=== PATIENT | female | born 1935 | race Caucasian/White ===

== ENCOUNTER → 2017-12-24 10:04 | Outpatient (CLI) | payer MEDICARE, OTHER, SELFPAY | PROVIDERS: Visit Provider Physician Assistant | DX: N30.01 Acute cystitis with hematuria (principal) | CPT/HCPCS: 87077; 87086; 87147; 87186 ==

== ENCOUNTER → 2017-12-30 14:41 | Outpatient (CLI) | payer MEDICARE, OTHER, SELFPAY ==
--- NOTE | 2017-12-30 14:45 | DI.RAD.S_ITS ---
PROCEDURE: XR THORACIC SPINE 3V INDICATIONS: LOWER BACK INJURY TECHNIQUE: 3 views of the thoracic spine were acquired. COMPARISON: [facility], , CHEST 1 VIEW, 11/12/2014, 9:48. [facility], , XR LUMBAR SPINE 2-3V, 12/30/2017, 14:23. FINDINGS: Bones: No acute fractures or dislocations. There is a chronic appearing anterior wedge deformity seen at T7. Accentuated thoracic kyphosis is seen. No suspicious bony lesions. 11 pairs of ribs are noted, and appear intact where visualized. Mild dextroconvex scoliotic curvature is noted. Age-appropriate osteopenia and bony degenerative changes are seen. Soft tissues: No paravertebral stripe thickening. IMPRESSION: Chronic appearing T7 anterior wedge deformity. If there is point tenderness (or other clinical suspicion for a fracture not seen on these images) then a dedicated CT could be considered for further evaluation, as clinically appropriate. Only 11 pairs of ribs can be seen. Dictated by: Gerardo Humphreys M.D. on 12/30/2017 at 14:09 Approved by: Gerardo Humphreys M.D. on 12/30/2017 at 14:11
--- NOTE | 2017-12-30 14:45 | DI.RAD.S_ITS ---
PROCEDURE: XR LUMBAR SPINE 2-3V INDICATIONS: INJURY LOWER BACK TECHNIQUE: 3 views of the lumbar spine were acquired. COMPARISON: [facility], CR, XR THORACIC SPINE 3V, 12/30/2017, 14:23. FINDINGS: Bones: This patient has transitional lumbar anatomy. For the purposes of this examination, the level with the last well-developed disc space is considered to be L5-S1. Only 11 well-developed pairs of ribs can be seen on the accompanying thoracic spine plain film series. The 1st nonrib-bearing segmented is considered to be T12. No acute lumbar spine fractures are seen. The disc spaces are well-preserved. Age-appropriate osteopenia is seen. Lower lumbar spine facet arthropathy is seen. There is partial visualization of a chronic appearing T7 anterior wedge deformity. Minimal levoconvex lumbar scoliotic curvature is seen. No focal AP alignment abnormality is seen. Soft tissues: Overlying bowel gas pattern is normal. No suspicious soft tissue calcifications. Relatively prominent atherosclerotic calcification is noted. IMPRESSION: No acute bony abnormality is seen of the lumbar spine. 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 Dictated by: Gerardo Humphreys M.D. on 12/30/2017 at 14:11 Approved by: Gerardo Humphreys M.D. on 12/30/2017 at 14:13
== END ==
PROVIDERS: Visit Provider Internal Medicine
DX: S39.92XS Unspecified injury of lower back, sequela (principal)
CPT/HCPCS: 72072; 72100

== ENCOUNTER 2018-01-01 19:29 | Inpatient (IN) | payer MEDICARE, OTHER, SELFPAY ==
[2018-01-01 19:40] VITALS: BP 160/112; PULSE 78; RESP 18; TEMP 36.6; BMI 21.6
[2018-01-01 20:31] LABS: Bacteria Urine None Seen
--- NOTE | 2018-01-01 20:32 | ED.WEAKNESS ---
HPI - Weakness General Chief complaint: Weakness Stated complaint: Blood in urine Time Seen by Provider: 01/01/18 21:36 Source: patient Mode of arrival: ambulatory Limitations: no limitations History of Present Illness HPI Narrative: The patient has sustained 3 mechanical falls at home in the last several days. With the 1st fall she did hit her head, there is no LOC, headache or new neurologic deficits. She has no nausea vomiting. She has no visual changes. She has no neck pain. By contrast, the 2nd fall was uneventful. The 3rd fall was 2 diets ago. About 1:30 a.m. she was up to the bathroom and fell. She does not remember how she fell. She required help getting up from the floor. She injured her back. She is here now with a primary complaint of back pain. She has no associated nausea, vomiting, diarrhea or incontinence. She has no bowel incontinence or bladder incontinence. Although unsteady on her feet, she denies any new numbness or weakness in the lower extremities. She has walked a little since the fall, not much due to pain. She has no chest pain. Related Data Home Medications Medication Instructions Recorded Confirmed amlodipine [Norvasc] 2.5 mg PO QDAY #0 02/25/12 levothyroxine [Synthroid] 125 mcg PO QDAY #0 02/25/12 telmisartan [Micardis] 80 mg PO QDAY #0 02/25/12 metoprolol succinate [Toprol XL] 25 mg PO QPM #0 02/14/17 metoprolol succinate [Toprol XL] 50 mg PO QAM #0 02/14/17 Allergies Allergy/AdvReac Type Severity Reaction Status Date / Time atenolol [ATENOLOL] AdvReac Intermediate dizzyness Verified 12/24/17 09:44 Review of Systems Review of Systems All systems reviewed & are unremarkable except as noted in HPI and below Constitutional Denies chills, Denies fever(s), Denies headache(s), Denies lethargy, Denies weakness and Reports other ( No recent illness.) Eyes Denies change in vision and Denies loss of vision ENT Ears, Nose, Mouth, and Throat: Denies change in voice, Denies vertigo, Denies dizziness, Denies facial pain, Denies headache(s), Denies mouth pain, Denies neck pain and Denies sore throat Cardiovascular Denies chest pain, Denies syncope, Denies irregular heart rhythm, Denies lightheadedness, Denies palpitations, Denies dyspnea, Denies dyspnea on exertion and Denies orthopnea Respiratory Denies cough, Denies dyspnea, Denies dyspnea on exertion and Denies wheezing Gastrointestinal Gastrointestinal: Denies abdominal pain, Denies change in bowel habits, Denies diarrhea, Denies nausea and Denies vomiting Genitourinary Reports hematuria ( For the last 3 weeks, onset prior to the recent falls.), Denies flank pain, Denies urinary incontinence and Denies urinary urgency Musculoskeletal Reports back pain, Reports limited range of motion and Denies neck pain Integumentary/Breasts Denies pruritus, Denies erythema, Denies rash and Denies wounds Neurologic Denies vertigo, Denies dizziness, Denies syncope, Denies headache(s), Denies loss of vision, Denies memory loss and Denies weakness Psychiatric Denies memory loss Endocrine Denies palpitations Allergic/Immunologic Denies wheezing PFSH Medical History Atrial fibrillation (Acute) Hypertension (Acute) Hypothyroidism (Acute) Social History Smoking Status: Former smoker Exam Initial Vital Signs Initial Vital Signs: Vital Signs Temperature 97.9 F 01/01/18 19:40 Pulse Rate 78 01/01/18 19:40 Respiratory Rate 18 01/01/18 19:40 Blood Pressure 160/112 H 01/01/18 19:40 Const General: cooperative and well developed Nutritional Appearance: well nourished Orientation: alert, awake, oriented x3 and not confused [facility] Head: normocephalic and atraumatic Ears: external ears normal and TM's normal bilaterally Nose: external nose normal and No nasal discharge Face and sinus: sinuses nontender, face symmetric, no sinus tenderness and No dry mucous membranes Mouth: oral mucosae normal and moist mucous membranes Teeth and gingiva: dentition normal Throat: tonsils normal and uvula midline Eyes Conjunctivae: conjunctivae normal Pupils: PERRL EOM: EOM intact bilaterally Neck Neck: normal visual inspection, supple and No tender Thyroid: thyroid normal Lymphatic: No lymphadenopathy Chest Chest: normal inspection of the chest Resp Effort & Inspection: normal respiratory effort, able to speak in complete sentences, no respiratory distress and no use of accessory muscles Auscultation: clear to auscultation bilaterally, no rales, no rhonchi and no wheezes Cardio Rate: regular rate Rhythm: abnormal rhythm irregularly irregular Heart Sounds: no click, no gallops, no murmurs and no rubs Pulses: normal peripheral pulses GI Inspection: non-distended Palpation: soft, no hepatosplenomegaly, No guarding, No pulsatile mass and No tender Auscultation: normal bowel sounds Back/Spine/Pelvis Back: back tenderness ( in the lower thoracic/ upper lumbar area. No palpable deformity is present. There is no sacral or pelvic tenderness.) and No CVA tenderness Skin General: no rashes or lesions noted, No jaundice and No petechiae Neuro General: alert, oriented x3 and no focal motor deficits Speech: speech normal Motor: strength 5/5 throughout and other Sensory Exam: no sensory deficits noted Extrem General: full ROM, no pedal edema, no calf tenderness and other ( Both hips are nontender with normal motion. There is no evidence of injury to any extremity.) Course Orders Ordered: ED Orders 01/01/18 20:21 Urinalysis and Microscopic Stat 01/01/18 21:50 Complete Blood Count AUTO DIFF Stat Comprehensive Metabolic Panel Stat Partial Thromboplastin Time Stat Prothrombin Time INR Stat 01/01/18 22:08 CT kidney ureter bladder (KUB) Stat 01/01/18 22:41 CT head/brain wo con Stat Morphine Sulfate (Morphine) 2 mg IV Q4HR PRN PRN Reason: Pain, Moderate (4-6) Discontinued Medications Morphine Sulfate (Morphine) 4 mg IV NOW ONE Stop: 01/01/18 22:08 Last Admin: 01/01/18 23:34 Dose: 4 mg Vital Signs - 8 hr 01/01/18 19:40 01/01/18 23:37 Temperature 97.9 F Pulse Rate 78 66 Respiratory Rate 18 16 Blood Pressure 160/112 H Blood Pressure [Left Arm] 141/88 H Pulse Oximetry 98 MDM - Weakness Lab Data Result diagrams: 01/01/18 21:50 01/01/18 21:50 Lab Results 01/01/18 01/01/18 01/01/18 Range/Units 20:21 21:50 21:50 WBC 9.8 (4.5-11.0) X10^3/uL RBC 4.28 (4.0-5.2) X10^6/uL Hgb 13.5 (12.0-16.0) g/dL Hct 39.1 (36-46) % MCV 91.2 (80-100) fL MCH 31.4 (26-34) PG MCHC 34.4 (30-36) % RDW 12.4 (11.6-14.8) % Plt Count 298 (150-400) X10^3/uL Neut % (Auto) 77.8 H (50-75) % Lymph % (Auto) 15.3 L (25-40) % [place] % (Auto) 6.4 (3-14) % Eos % (Auto) 0.3 L (2-4) % Baso % (Auto) 0.2 (0-2) % Neut # (Auto) 7600 H (1758-6784) /uL PT 12.6 (10.1-12.7) SECONDS INR 1.2 (0.9-1.3) APTT 28 (26.4-36.2) SECONDS Sodium (137-145) mmol/L Potassium (3.4-5.1) mmol/L Chloride (98-107) mmol/L Carbon Dioxide (22-32) mmol/L BUN (7-17) mg/dL Creatinine (0.52-1.04) mg/dL Estimated GFR (>60) mL/min BUN/Creatinine Ratio (6-22) Glucose (80-110) mg/dL Calcium (8.4-10.2) mg/dL Total Bilirubin (0.2-1.3) mg/dL AST (14-36) IU/L ALT (9-52) IU/L Alkaline Phosphatase (38-126) U/L Total Protein (6.3-8.2) g/dL Albumin (3.5-5.0) g/dL Globulin (1.7-4.1) g/dL Albumin/Globulin Ratio (1.0-2.8) Urine Color Brown Urine Appearance Sl cloudy Urine pH 5.5 (4.5-8.0) Ur Specific [place] 1.020 (1.000-1.035) Urine Protein 1+ H (Negative) Urine Glucose (UA) Negative (Normal) g/dL Urine Ketones Negative (NEGATIVE) Urine Occult Blood 3+ H (Negative) Urine Nitrate Negative (Negative) Urine Bilirubin Negative (NEGATIVE) Urine Urobilinogen 0.2 (0.2) E.U./dL Ur Leukocyte Esterase Negative (NEGATIVE) Urine RBC >100/hpf H (0-5/HPF) Urine WBC 1-5/hpf (0-5/HPF) Ur Squamous Epith Cells 0-1 /hpf Urine Bacteria None seen (None) Ur Culture Indicated? Cult not indicated Micro UA Comment Not Reportable 01/01/18 Range/Units 21:50 WBC (4.5-11.0) X10^3/uL RBC (4.0-5.2) X10^6/uL Hgb (12.0-16.0) g/dL Hct (36-46) % MCV (80-100) fL MCH (26-34) PG MCHC (30-36) % RDW (11.6-14.8) % Plt Count (150-400) X10^3/uL Neut % (Auto) (50-75) % Lymph % (Auto) (25-40) % [place] % (Auto) (3-14) % Eos % (Auto) (2-4) % Baso % (Auto) (0-2) % Neut # (Auto) (4520-4177) /uL PT (10.1-12.7) SECONDS INR (0.9-1.3) APTT (26.4-36.2) SECONDS Sodium 122 L (137-145) mmol/L Potassium 3.6 (3.4-5.1) mmol/L Chloride 83 L (98-107) mmol/L Carbon Dioxide 29 (22-32) mmol/L BUN 28 H (7-17) mg/dL Creatinine 0.90 (0.52-1.04) mg/dL Estimated GFR > 60.0 (>60) mL/min BUN/Creatinine Ratio 31.1 H (6-22) Glucose 104 (80-110) mg/dL Calcium 9.3 (8.4-10.2) mg/dL Total Bilirubin 0.9 (0.2-1.3) mg/dL AST 41 H (14-36) IU/L ALT 25 (9-52) IU/L Alkaline Phosphatase 96 (38-126) U/L Total Protein 7.0 (6.3-8.2) g/dL Albumin 4.0 (3.5-5.0) g/dL Globulin 3.0 (1.7-4.1) g/dL Albumin/Globulin Ratio 1.3 (1.0-2.8) Urine Color Urine Appearance Urine pH (4.5-8.0) Ur Specific [place] (1.000-1.035) Urine Protein (Negative) Urine Glucose (UA) (Normal) g/dL Urine Ketones (NEGATIVE) Urine Occult Blood (Negative) Urine Nitrate (Negative) Urine Bilirubin (NEGATIVE) Urine Urobilinogen (0.2) E.U./dL Ur Leukocyte Esterase (NEGATIVE) Urine RBC (0-5/HPF) Urine WBC (0-5/HPF) Ur Squamous Epith Cells Urine Bacteria (None) Ur Culture Indicated? Micro UA Comment Imaging Data CT scan - head: Radiologist's impression: No evidence of acute injury. KUB CT: My impression: Radiologist's impression: Kidneys, internal organs are normal. She has a T11 compression fracture with bony fragments causing effacement to the anterior thecal sac and spinal cord narrowing. MDM Narrative Medical decision making narrative: I discussed the CT findings the spine with local Ortho. The on-call local orthopedic surgeon is not a air cargo specialist supervisor, following our discussion I sought out a air cargo specialist supervisor at [facility]. Dr Waddell at [facility] was able to review the CT with me. Being that she is neurologically intact and conservative management is recommended. He recommended OUTSIDE SALESPERSON brace, with follow-up standing x-rays. Follow-up was also offered at the [facility] spine surgery Clinic: . . The on-call hospitalist, Dr. Simon, was contacted for admission here at [facility] for her initial care. Discharge Plan Departure Patient Disposition: Admitted as Observation Clinical Impression: Closed wedge compression fracture of T11 vertebra
[2018-01-01 20:53] LABS: Appearance Urine UA SL CLOUDY; Bilirubin Urine UA NEGATIVE (NEGATIVE); Color Urine UA BROWN; Glucose Urine UA NEGATIVE (Normal); Ketones Urine UA NEGATIVE (NEGATIVE); Leukocyte Esterase Urine UA NEGATIVE (NEGATIVE); Nitrite Urine UA Negative (Negative); Occult Blood Urine UA 3+ (Negative); Protein Urine UA 1+ (Negative); Urobilinogen Urine UA 0.2 E.U./dL (0.2); pH Urine UA 5.5 (4.5-8.0)
[2018-01-01 21:01] LABS: RBC Urine >100/HPF (0-5/HPF); Squamous Epithelial Cell Urine 0-1 /HPF; WBC Urine 1-5/HPF (0-5/HPF)
[2018-01-01 21:02] LABS: Culture Indicated Urine Cult Not Indicated
--- NOTE | 2018-01-01 21:50 | PC.NURSE ---
pt c/o lower back pain since a fall on 12/22 outside after gardening. Pt is very tender to touch and is unable to sit up straight or ambulate due to the pain and increased weakness after fall. Pelvis feels stable to manipulation and pt reports no blood in stool. She is having hematuria and takes Xarelto. Daugther just informed me that she hit her head after her fall in november and sustained some scrapes to the back of the head but she never went to the doctor about it. Daughter Reports that she has a UTI and was treated with abx prior to her visit here with us. Pt was straight cath'd and visible blood was in urine. Mentating well.
--- NOTE | 2018-01-01 22:08 | DI.CT.S_ITS ---
PROCEDURE: CT KIDNEY URETER BLADDER (KUB) INDICATIONS: hematuria. Back pain TECHNIQUE: Noncontrast 5 mm thick sections acquired from the diaphragms to the symphysis. 5 mm thick coronal and sagittal reformats were then performed. For radiation dose reduction, the following was used: automated exposure control, adjustment of mA and/or kV according to patient size. COMPARISON: [facility], CT, CT THORACIC SPINE WO CON, 01/02/2018, 7:45. [facility], CT, CT LUMBAR SPINE WO CON, 01/02/2018, 7:45. [facility], CR, XR LUMBAR SPINE 2-3V, 12/30/2017, 14:23. [facility], CR, XR THORACIC SPINE 3V, 12/30/2017, 14:23. FINDINGS: Image quality: Excellent. Lung bases: Lung bases are clear. Heart size is normal. Urinary system: Both kidneys are normal in size. No kidney stones. No hydronephrosis or perinephric fat stranding. Both ureters appear non-dilated throughout their expected courses. Bladder wall thickness is normal; no calcified bladder stones. Other solid organs: Liver is normal in size. Gallbladder appears normal. Pancreas is normal in contours. Spleen is normal in size. No adrenal nodules. Peritoneum and bowel: Unenhanced bowel loops demonstrate normal wall thickness and caliber but there is generalized colonic obstipation, right greater than left. No free fluid or air. Nodes and vessels: No retroperitoneal or mesenteric adenopathy by size criteria. Aorta and inferior vena cava are normal in caliber. Abdominal wall: No ventral hernias. Pelvis: No free pelvic fluid. No inguinal hernias or adenopathy. Bones: No suspicious bony lesions. There is a T12 retropulsed vertebral body compression fracture, with approximately a 63% height reduction of the middle third of the vertebral body when compared to the level immediately below. There is also between 5 and 8 mm of retropulsion of the posterior T. 11 vertebral body into the spinal canal, from sagittal measurement, producing moderate spinal stenosis. IMPRESSION: T11 significant vertebral body compression fracture with retropulsion, with approximately 63% height reduction compared to the level immediately below, and 5-8 mm of retropulsion. This produces moderate spinal stenosis, and MR scanning may be warranted to more accurately assess for the degree of spinal stenosis (which can be underestimated by CT scanning). Please also refer to plain film and CT spine reports from 01/02/18. Given the presumed acute nature of this compression fracture and the degree of retropulsion present the fracture is considered potentially unstable and orthopedic surgical consultation likely is warranted. Dictated by: Ulices Grover M.D. on 01/02/2018 at 11:46 Approved by: Ulices Grover M.D. on 01/02/2018 at 11:52
[2018-01-01 22:15] LABS: Add Manual Diff / Slide Review NO; Basophils Percent Auto 0.2 % (0-2); Eosinophils Percent Auto 0.3 % (2-4); Hematocrit 39.1 % (36-46); Hemoglobin 13.5 g/dL (12.0-16.0); Lymphocytes Percent Auto 15.3 % (25-40); Mean Corpuscular HGB Conc 34.4 % (30-36); Mean Corpuscular Hemoglobin 31.4 PG (26-34); Mean Corpuscular Volume 91.2 fL (80-100); Monocytes Percent Auto 6.4 % (3-14); Neutrophils Absolute Auto 7600 /uL (3000-5900); Neutrophils Percent Auto 77.8 % (50-75); Platelet Count 298 X10^3/uL (150-400); Red Blood Cell Count 4.28 X10^6/uL (4.0-5.2); Red Cell Distribution Width 12.4 % (11.6-14.8); White Blood Cell Count 9.8 X10^3/uL (4.5-11.0)
[2018-01-01 22:16] LABS: INR 1.2 (0.9-1.3); Prothrombin Time 12.6 SECONDS (10.1-12.7)
[2018-01-01 22:19] LABS: PTT Partial Thromboplastin Tim 28 SECONDS (26.4-36.2)
[2018-01-01 22:20] LABS: Alanine Aminotransferase 25 IU/L (9-52); Albumin Globulin Ratio 1.3 (1.0-2.8); Alkaline Phosphatase 96 U/L (38-126); Aspartate Aminotransferase 41 IU/L (14-36); BUN Creatinine Ratio 31.1 (6-22); Bilirubin Total 0.9 mg/dL (0.2-1.3); Blood Urea Nitrogen 28 mg/dL (7-17); Calcium 9.3 mg/dL (8.4-10.2); Carbon Dioxide 29 mmol/L (22-32); Chloride 83 mmol/L (98-107); Estimated Glomerular Filt Rate > 60.0 mL/min (>60); Glucose 104 mg/dL (80-110); HEMOLYSIS 43 (0-50); Potassium 3.6 mmol/L (3.4-5.1); Sodium 122 mmol/L (137-145)
--- NOTE | 2018-01-01 22:41 | DI.CT.S_ITS ---
PROCEDURE: CT HEAD/BRAIN WO CON INDICATIONS: Fall with head injury. On Xarelto TECHNIQUE: Noncontrast 4.5 mm thick angled axial sections acquired from the foramen magnum to the vertex, with coronal and sagittal reformats. For radiation dose reduction, the following was used: automated exposure control, adjustment of mA and/or kV according to patient size. COMPARISON: [facility], CT, HEAD WITHOUT CONTRAST, 07/19/2016, 11:08. FINDINGS: Image quality: Excellent. CSF spaces: Basal cisterns are patent. No extra-axial fluid collections. The ventricles are symmetric in size and shape. Brain: No intracranial bleeds or masses. There is cerebral volume loss for age, with resultant ventricular and sulcal prominence. There are periventricular and deep white matter chronic small vessel ischemic changes. There is intracranial internal carotid artery atherosclerosis. Skull and face: Calvarium and visualized facial bones appear intact, without suspicious lesions. Sinuses: Visualized sinuses and mastoids are clear. IMPRESSION: Basal ganglia calcifications, no acute disease. Note: These findings are concordant with the preliminary interpretation. Dictated by: Ulices Grover M.D. on 01/02/2018 at 10:07 Approved by: Ulices Grover M.D. on 01/02/2018 at 10:08
[2018-01-01] MEDS: MORPHINE 4 MG/ML INJ IV (23:34)
[2018-01-01 23:37] VITALS: BP 141/88; PULSE 66; RESP 16; O2SAT 98
[2018-01-02] VITALS (7 sets, daily range): BP systolic 99–139; BP diastolic 57–90; PULSE 65–105; RESP 16–20; TEMP 35.7–36.8; O2SAT 94–100; BMI 21.6
--- NOTE | 2018-01-02 | DI.CT.S_ITS ---
PROCEDURE: CT THORACIC SPINE WO CON INDICATIONS: COMPRESSION FRACTURE TECHNIQUE: Noncontrast 3 mm thick sections acquired through the region of interest in the thoracic spine. Sagittal and coronal reformats were then constructed. For radiation dose reduction, the following was used: automated exposure control. COMPARISON: [facility], CR, CHEST 1 VIEW, 11/12/2014, 9:48. [facility], CR, XR THORACIC SPINE 3V, 12/30/2017, 14:23. [facility], CR, XR LUMBAR SPINE 2-3V, 12/30/2017, 14:23. FINDINGS: Image quality: Excellent. Bones: There is normal overall bony alignment. No vertebral body compression fractures are present at T7 and T11, hand comparison plain films from 12/30/17 a low visualization of these areas. There appears to have been a slight interval increase in the degree of vertebral height reduction at both T7 and T11 which establishes acute rather than chronic etiology. No underlying osteolytic or blastic lesions or evidence of infection is present and therefore these are presumably osteoporotic in origin. Vertebral height reduction at T7 is 47% when compared to the vertebral body immediately above, and 51% at T11 when compared to the vertebral body above. There is slight posterior bowing of the posterior margin of both the T7 and T11 vertebral body margins into the spinal canal. No suspicious sclerotic or lytic bony lesions. Central spinal canal is of normal overall caliber. Soft tissues: No paravertebral masses or hematomas. Visualized posteromedial lungs appear clear. 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 As noted there is a small degree of retropulsion of the posterior margin of each of these vertebral bodies into the spinal canal producing at least mild spinal stenosis. Depending on clinical status or followup by MR scanning could be obtained for more accurate assessment of degree of spinal stenosis. There is potential instability in this clinical circumstance. Dictated by: Ulices Grover M.D. on 01/02/2018 at 8:26 Approved by: Ulices Grover M.D. on 01/02/2018 at 8:36
--- NOTE | 2018-01-02 | DI.CT.S_ITS ---
PROCEDURE: CT LUMBAR SPINE WO CON INDICATIONS: FALLS WITH BACK PAIN TECHNIQUE: Noncontrast 3 mm thick sections acquired from the T12 level to the sacrum. Sagittal and coronal reformats were constructed. For radiation dose reduction, the following was used: automated exposure control. COMPARISON: None. FINDINGS: Image quality: Excellent. Bones: There is normal bony alignment. No acute lumbosacral vertebral body compression fractures, and the T11 acute compression fracture also discussed during dedicated thoracic spine CT scanning from today is again seen. There is retropulsion of the upper posterior vertebral body by approximately 5 mm into the spinal canal at T11, indicating potential for further worsening of this compression fracture and degree of spinal stenosis. No suspicious lytic or blastic bony lesions. Central spinal caliber is of normal overall caliber. No pars defects. Soft tissues: No retroperitoneal masses or hematomas. Visualized aorta is normal in caliber. IMPRESSION: The lumbosacral spine is free of traumatic injury but the T11 vertebral body compression fracture also discussed in detail during thoracic spine CT scanning report earlier today is again seen and is associated with approximately a 5 mm posterior retropulsion of the upper posterior vertebral body at this level. This is a finding consistent with potential instability and potential worsening of the degree of spinal stenosis associated with this injury. No osteolytic or blastic lesion is found. Orthopedic surgical consultation likely is warranted given the finding of retropulsion discussed above. Dictated by: Ulices Grover M.D. on 01/02/2018 at 8:36 Approved by: Ulices Grover M.D. on 01/02/2018 at 8:39
--- NOTE | 2018-01-02 00:58 | PC.NURSE ---
Pt resting flat in bed for comfort. Surgery being consulted. Pt reports morphine improved her pain very much and she is trying to fall asleep. vitals remain stable and spo2 98% RA.
--- NOTE | 2018-01-02 02:28 | PC.NURSE ---
Attempted to complete med reconciliation. Pt was not able to confirm doses. Pt states 'I only know them by the shape and color.'
--- NOTE | 2018-01-02 02:32 | PC.NURSE ---
Attempted to call daughter to give her an update, no answer at this time, voicemail left.
--- NOTE | 2018-01-02 04:21 | PC.NURSE ---
[employer]der [employer] Operator Summary: 0315: Admitted to acute care room 213 from ER. Alert, oriented X3. Vital signs stable. Saline lock in place in rt AC. Pt states she has not had a bowel movement since 12/28, thought she normally has one daily. Note left for Dr. Simon. Pt states she does not remember the names of her medications but will have her daughter bring them in. She does not remember her daughters phone number.
[2018-01-02 06:05] LABS: Hematocrit 36.8 % (36-46); Hemoglobin 12.8 g/dL (12.0-16.0); Mean Corpuscular HGB Conc 34.9 % (30-36); Mean Corpuscular Hemoglobin 31.8 PG (26-34); Mean Corpuscular Volume 91.2 fL (80-100); Platelet Count 282 X10^3/uL (150-400); Red Blood Cell Count 4.04 X10^6/uL (4.0-5.2); Red Cell Distribution Width 12.9 % (11.6-14.8); White Blood Cell Count 10.3 X10^3/uL (4.5-11.0)
[2018-01-02 06:21] LABS: Alanine Aminotransferase 31 IU/L (9-52); Albumin 3.8 g/dL (3.5-5.0); Albumin Globulin Ratio 1.4 (1.0-2.8); Alkaline Phosphatase 91 U/L (38-126); Aspartate Aminotransferase 33 IU/L (14-36); Bilirubin Total 0.8 mg/dL (0.2-1.3); Blood Urea Nitrogen 27 mg/dL (7-17); Calcium 9.1 mg/dL (8.4-10.2); Carbon Dioxide 31 mmol/L (22-32); Chloride 84 mmol/L (98-107); Estimated Glomerular Filt Rate 53.3 mL/min (>60); Globulin 2.8 g/dL (1.7-4.1); Glucose 95 mg/dL (80-110); HEMOLYSIS < 15 (0-50); Potassium 3.3 mmol/L (3.4-5.1); Sodium 122 mmol/L (137-145); Total Protein 6.6 g/dL (6.3-8.2)
[2018-01-02 06:37] LABS: Neutrophils Absolute Manual 7622 /uL (3000-5900); Total Cells Counted 100
[2018-01-02] MEDS: MORPHINE 2 MG/ML INJ IV (07:37)
[2018-01-02] MEDS: SODIUM CHLORIDE 0.9% FLUSH 10 ML IV ×2 (08:58→20:41)
[2018-01-02] MEDS: POLYETHYLENE GLYCOL 3350 17 GM POWD.PACK PO (08:58)
[2018-01-02] MEDS: SENNOSIDES 8.6 MG TABLET 17.2 MG PO (08:59)
[2018-01-02] MEDS: OXYCODONE/ACETAMINOPHEN 5/325 TABLET 1 TAB PO (09:01)
--- NOTE | 2018-01-02 09:48 | PC.NURSE ---
Addendum entered by Shirley Payne R.N. 01/02/18 15:40: - iv abx started after in/out ua collected. Original Note: Addendum entered by Shirley Payne R.N. 01/02/18 13:25: GI/ - discussed voiding w/pt, states went earlier am before arrival to floor, placed on bedpan now and voided 175ml concentrated urine, pvr check 278ml, pt does have distended abd and discussed constipation, flatus only after earlier laxatives, log rolled to l side and admin dulcolax suppos, pt has call light available. Original Note: Addendum entered by Shirley Payne R.N. 01/02/18 12:05: PT/OT - after review of CT scan, spoke to and will hold PT/OT for now, he will be contacting the government operations consultant ortho MD for eval, Patricia in PT notified and made aware of hold until further clarification of mobilization. Original Note: AM NOTE - awake, lying supine, pt states pain incr to 8 when moving, attempted to place pt on bedpan and could not tolerate, discussed pain medications and given 2mg iv morphine and xr transported via bed for CT, returned, repositioned for comfort, pain about 6 on scale 0/10 and assisted with po, discussed pain medications, constipation, given miralax and senna tabs with breakfast, dulcolax suppos avail later use, given x1 tab percocet 5/325mg as pt has not taken narcotics. Discussed home medications with pt and her dtr should be able to bring in after faith.
--- NOTE | 2018-01-02 10:05 | CM.DANOTE ---
DCP: Case received,EMR reviewed and met with patient. Introduced self and role. DCP template completed with information currently available. Patient is an 82 year old female who was admitted early this am to the care of the hospitalist team. PCP: Stated that she sees a female doctor, but she could not remember the name. Payer: Confirmed: Medicare/[employer]. Patient sustained a ground level fall at home, came in with symptoms of hematuria, back pain. Will be consulting with ortho today, regarding compression fractures. P: Left a message with friend, Tess, who is an RN. Patient stated it was ok to call her. May need some home therapy, due to history of falls. At this time, is on observation status. Kezia Maria, VIRGIL/Senior Linux Systems Administrator
--- NOTE | 2018-01-02 11:16 | CM.DPC ---
DCP Cont: Spoke to daughter, Eliana. Her number is :[phone]. She is her primary caregiver, and just moved up here to stay with her mom. Patient has had multiple falls, has a lifeline, but forgets to use it. She will be coming by to see her mom today. Did discuss resources, such as home health, physical, occupational therapy, and is in agreement with this idea. Stated that her mom also has occasional incontinence, which she needs to help her with. P: Will meet with daughter today, to discuss resources for patient, and will give her information, such as Medicare Certified Facilities, and home health information, as well as Senior resource book. Kezia Maria RN/Civil Manager
--- NOTE | 2018-01-02 12:39 | PT.IPTN ---
Physical Therapy- Holding evaluation today. Assessment of her spinal fx is on-going. Discussed case with her RN.
[2018-01-02] MEDS: BISACODYL 10 MG SUPP PR (13:04)
--- NOTE | 2018-01-02 14:16 | CM.DPC ---
DCP Cont: Met with patient's daughter and nephew. Daughter is primary caregiver at this time, and has support of family, nephew as well. Is concerned regarding patient's memory and safety issues. At this time, patient is on bed rest, due to compression fracture, but is still under observation at this time. Gave daughter Medicare certified facilities, home health, as well as skilled, if she qualifies for this. Discussed assisted living facilities, but stated would not be possible, due to cost. Stated that at this time, she has adequate funds for caregiver to come into the home. Gave her Senior Resources booklet showing some caregiver agencies. Went over Medicare authorized home health agencies as well, for patient could benefit with P.T, as well as O.T. for safety in the home, as well as strengthening. Daughter is familiar with [employer] for DME supplies, discussed shower bench as well.. P: DCP to continue to assess and plan. May pursue home health, if she does not qualify for skilled placement. Kezia Maria, RN/Quarter Doper
--- NOTE | 2018-01-02 14:17 | P.HP_ITS ---
History of Present Illness Chief complaint: Blood in urine Narrative: THE PATIENT IS 82-YEAR-OLD FEMALE WHO PRESENTED TO THE ED FOR HEMATURIA. SHE HAD ACTUALLY PRESENTED TO HER PRIMARY CARE OFFICE ON 12/24/2017 FOR PROBLEMS WITH HEMATURIA. URINALYSIS WAS OBTAINED REVEALED HEMATURIA AND POSITIVE NITRATE AND LEUKOCYTE ESTERASE REACTION. URINE CULTURE WAS OBTAINED AND IT DOES NOT APPEAR THAT SHE WAS PLACED ON ANTIBIOTICS. BECAUSE OF HER PAIN ON 12/30/2017 THORACIC AND LUMBAR X-RAYS WERE OBTAINED WITH A THORACIC FILMS REVEALING A CHRONIC APPEARING T7 WITH NO MENTION OF THE T7 COMPRESSION FRACTION. SHE HAD ONGOING BACK PAIN AND HEMATURIA. THEREFORE THE PROBLEM PERSISTED SHE PRESENTED TO THE ED. SHE COMPLAINED OF ONGOING PROBLEMS WITH BACK PAIN AFTER HAVING A FALL APPROXIMATELY A WEEK AGO. SHE HAS HAD ADDITIONAL FALLS DURING THIS TIME FOR TOTAL OF 3 IN PAST WEEK. BECAUSE OF HER COMPLAINTS OF BACK PAIN AND HER FALLS CT HEAD WAS OBTAINED WITHOUT ANY ACUTE INTRACRANIAL PROCESS. CT ABDOMEN AND PELVIS WAS ALSO OBTAINED NO ABNORMALITIES OF THE KIDNEYS WERE NOTED AND A CT SCAN REVEALED A T11 COMPRESSION FRACTURE. SHE WAS THEREFORE ADMITTED FOR PAIN MANAGEMENT AND TREATMENT OF HER URINARY TRACT INFECTION Patient History Medical History Hypertension (Acute) Atrial fibrillation (Acute) Hypothyroidism (Acute) UTI (urinary tract infection), bacterial (Acute) Surgical History History of tonsillectomy (Acute) Previous section (Acute) Family & Social History Social History: PATIENT IS A SHE LIVES HOME ALONE. SHE HAS 3 CATS AND 1 DOG. SHE WAS BORN IN [place] 3 OF WHOM 2 ARE LIVING ONCE THE SON WANTED TO ORDER THE DAUGHTERS IN THE WITH THE PATIENT NOW household members none Prior Living Arrangements House Safety & Behavioral: Feels Safe in Current Yes Environment Been Physically Hurt or No Threatened By a Person Suicidal Ideation Description None Suicide Plan Description No Plan Tobacco & Substance use: PATIENT DISCONTINUE HER TOBACCO ABUSE AND 1973 SHE DRINKS ALCOHOL RARELY Smoking Status Former smoker alcohol intake current alcohol intake frequency a few times a month Substance Use Type does not use Meds Home Medications Medication Instructions Recorded Confirmed Type levothyroxine [Synthroid] 100 mcg PO QDAY #0 02/25/12 01/02/18 History telmisartan [Micardis] 80 mg PO QDAY #0 02/25/12 01/02/18 History metoprolol succinate [Toprol XL] 25 mg PO QPM #0 02/14/17 01/02/18 History metoprolol succinate [Toprol XL] 50 mg PO QAM #0 02/14/17 01/02/18 History rivaroxaban [Xarelto] 15 mg PO QPM 01/02/18 01/02/18 History Allergies Allergy/AdvReac Type Severity Reaction Status Date / Time atenolol [ATENOLOL] AdvReac Intermediate dizzyness Verified 12/24/17 09:44 Review of Systems Review of Systems All systems reviewed & are unremarkable except as noted in HPI and below Exam Vital Signs (past 8 hours): - 01/02/18 07:35 01/02/18 11:36 Temperature 97.9 F 97.9 F Pulse Rate 81 81 Respiratory Rate 20 16 Blood Pressure 134/76 H 99/69 Pulse Oximetry 100 97 Oxygen Delivery Method Room Air Narrative Exam Narrative: GENERAL NAD HEENT NORMOCEPHALIC ATRAUMATIC EXTRAOCULAR MOVEMENTS INTACT PUPILS EQUAL ROUND REACTIVE FUNDI NOT VISUALIZED SCLERA NONICTERIC OROPHARYNX WAS CLEAR NECK WAS SUPPLE WITHOUT THYROMEGALY OR JUGULAR VENOUS DISTENTION LUNGS ARE CLEAR AUSCULTATION ALIGN HEART REGULAR RHYTHM S1-S2 WAS NORMAL DIAGNOSES RUBS MURMURS GALLOPS PRESENT ABDOMEN ROTUND BENIGN EXTREMITIES REVEAL FULL RANGE OF MOTION PULSES INTACT NEUROLOGIC GROSSLY PHYSIOLOGIC PSYCHIATRIC AWAKE ALERT ORIENTED MOOD AFFECT WERE NORMAL Objective Labs Result Diagrams: 01/02/18 05:35 01/02/18 05:35 Labs: Laboratory Results - last 24 hr 01/01/18 01/01/18 01/01/18 20:21 21:50 21:50 WBC 9.8 RBC 4.28 Hgb 13.5 Hct 39.1 MCV 91.2 MCH 31.4 MCHC 34.4 RDW 12.4 Plt Count 298 Neut % (Auto) 77.8 H Lymph % (Auto) 15.3 L [place] % (Auto) 6.4 Eos % (Auto) 0.3 L Baso % (Auto) 0.2 Neut # (Auto) 7600 H Total Counted Seg Neutrophils % Band Neutrophils % Lymphocytes % (Manual) Eosinophils % (Manual) Metamyelocytes % Myelocytes % Neutrophils # (Manual) RBC Morphology PT 12.6 INR 1.2 APTT 28 Sodium Potassium Chloride Carbon Dioxide BUN Creatinine Estimated GFR BUN/Creatinine Ratio Glucose Calcium Total Bilirubin AST ALT Alkaline Phosphatase Total Protein Albumin Globulin Albumin/Globulin Ratio Urine Color Brown Urine Appearance Sl cloudy Urine pH 5.5 Ur Specific [place] 1.020 Urine Protein 1+ H Urine Glucose (UA) Negative Urine Ketones Negative Urine Occult Blood 3+ H Urine Nitrate Negative Urine Bilirubin Negative Urine Urobilinogen 0.2 Ur Leukocyte Esterase Negative Urine RBC >100/hpf H Urine WBC 1-5/hpf Ur Squamous Epith Cells 0-1 /hpf Urine Bacteria None seen Ur Culture Indicated? Cult not indicated Micro UA Comment Not Reportable 01/01/18 01/02/18 01/02/18 21:50 05:35 05:35 WBC 10.3 RBC 4.04 Hgb 12.8 Hct 36.8 MCV 91.2 MCH 31.8 MCHC 34.9 RDW 12.9 Plt Count 282 Neut % (Auto) Lymph % (Auto) [place] % (Auto) Eos % (Auto) Baso % (Auto) Neut # (Auto) Total Counted 100 Seg Neutrophils % 70.0 Band Neutrophils % 4.0 Lymphocytes % (Manual) 23.0 L Eosinophils % (Manual) 1.0 L Metamyelocytes % 1.0 H Myelocytes % 1.0 H Neutrophils # (Manual) 7622 H RBC Morphology Not Reportable PT INR APTT Sodium 122 L 122 L Potassium 3.6 3.3 L Chloride 83 L 84 L Carbon Dioxide 29 31 BUN 28 H 27 H Creatinine 0.90 1.00 Estimated GFR > 60.0 53.3 L BUN/Creatinine Ratio 31.1 H 27.0 H Glucose 104 95 Calcium 9.3 9.1 Total Bilirubin 0.9 0.8 AST 41 H 33 ALT 25 31 Alkaline Phosphatase 96 91 Total Protein 7.0 6.6 Albumin 4.0 3.8 Globulin 3.0 2.8 Albumin/Globulin Ratio 1.3 1.4 Urine Color Urine Appearance Urine pH Ur Specific [place] Urine Protein Urine Glucose (UA) Urine Ketones Urine Occult Blood Urine Nitrate Urine Bilirubin Urine Urobilinogen Ur Leukocyte Esterase Urine RBC Urine WBC Ur Squamous Epith Cells Urine Bacteria Ur Culture Indicated? Micro UA Comment Assessment & Plan Plan: Assessment/Plan Narrative: 1. T7 AND T11 THORACIC COMPRESSION FRACTURE PER CT REPORT THE FINDINGS OF T11 ARE CONSISTENT WITH POTENTIAL INSTABILITY AND POTENTIAL WORSENING OF THE DEGREE OF SPINAL STENOSIS ASSOCIATED WITH THE INJURY. ORTHOPEDIC CONSULTATION WAS RECOMMENDED BASED ON INSTABILITY OF THE COMPRESSION FRACTURE DR. BUTLER HAS BEEN CONTACTED BY ME PERSONALLY AND WILL HAVE A SPINE SURGEON SEE THE PATIENT. THIS WAS EXPLAINED TO PATIENT AND HER DAUGHTER 2. URINARY TRACT INFECTION THE PATIENT WAS SEEN IN THE CLINIC ON 12/24/2017 URINALYSIS WAS OBTAINED AND REVEALED IT TO BE POSITIVE FOR GREATER THAN 100,000 COLONIES OF STAPHYLOCOCCUS SIMULANS. DOES NOT APPEAR THAT THE PATIENT WAS PLACED ON ANY ANTIBIOTIC THERAPY. A REPEAT URINE CULTURE WILL BE OBTAINED TODAY. THE PATIENT WILL BE PLACED ON LEVAQUIN 500 MG IV DAILY. THE ORGANISM IS SENSITIVE TO QUINOLONES 3. BACK PAIN SECONDARY TO COMPRESSION FRACTURE PATIENT WILL BE TREATED WITH ORAL OPIOIDS ONLY AND SHOULD HOPEFULLY CONTROL HER PAIN 4. HEMATURIA THE PATIENT IS ON XARELTO AND IS QUITE CONCEIVABLE THAT THIS PLAN APART AND HER HEMATURIA AND THEREFORE WILL BE DISCONTINUED. ADDITIONALLY THERE APPEARS TO BE A UTI AND THIS TOO IS CONTRIBUTORY FACTOR. MENTIONED ABOVE OF REPEAT CULTURE HAS BEEN ORDERED AND SHE WILL BE PLACED ON ANTIBIOTICS FOR PROBABLE UTI DISPOSITION THIS WILL BE DETERMINED ULTIMATELY BY PT OT EVAL; FURTHER HOME WITH OUTPATIENT PT OR NEED FOR LONGTERM FACILITY. PRESENTLY PATIENT IS ON BED REST AND ONCE SPINE SURGERY HAS SEEN HER PHYSICAL THERAPY EVAL WILL TAKE PLACE.
--- NOTE | 2018-01-02 15:09 | PC.NURSE ---
in and out cath done for urine sample. dark urine with possible blood noted. Pt tolerated well.
[2018-01-02] MEDS: CEFTRIAXONE 1 GM/50 ML FROZ.PIGGY IV (15:10)
[2018-01-02] MEDS: FLEETS ENEMA 1 EACH PR (20:41)
[2018-01-02] MEDS: SODIUM CHLORIDE 0.9% 1,000 ML 100 ML IV (21:58)
--- NOTE | 2018-01-02 23:14 | PC.NURSE ---
Evening note - No BM for 1 week. Reviewed labs with MD, got fluids and fleet ordered. Pt moved a lot of gas when positioned for fleet, however no BM. Pt stated relief however. Abdomen continues to be distended.
[2018-01-03 06:04] VITALS: BP 121/56; PULSE 73; RESP 17; TEMP 36.7; O2SAT 98
[2018-01-03] MEDS: LEVOTHYROXINE 100 MCG TABLET PO (06:14)
[2018-01-03 07:50] VITALS: BP 143/75; PULSE 81; RESP 20; TEMP 36.6; O2SAT 98
[2018-01-03] MEDS: OXYCODONE IR 10 MG TABLET 20 MG PO (08:09)
[2018-01-03] MEDS: METOPROLOL ER 25 MG TABLET 50 MG PO (08:10)
[2018-01-03] MEDS: TELMISARTAN 40 MG TABLET 80 MG PO (08:10)
--- NOTE | 2018-01-03 09:00 | PT.IIE ---
Current Diagnoses Wedge compression fracture of T7-T8 vertebra, initial encounter for closed fracture (01/02/18) Surgical History (Last Updated 01/02/18 @ 14:17 by Mainnder Simon MD) History of tonsillectomy (Acute) Previous section (Acute) Medical History (Last Updated 01/02/18 @ 14:26 by Maninder Simon MD) Hypertension (Acute) Atrial fibrillation (Acute) Hypothyroidism (Acute) UTI (urinary tract infection), bacterial (Acute) Physical Therapy Inpatient Evaluation/Re-Eval M1 PT/OT-IP Prior Functional Status Start: 01/03/18 08:31 Freq: NEEDED Status: Active Protocol: Document 01/03/18 09:00 LRN (Rec: 01/03/18 14:06 LRN [id number]) Medical Review Prior Functional Status Medical History Reviewed Yes Mobility and Gait Lives alone Activities of Daily Living and IADL's Independent but with history of falls, 3 in past week. Social History Household Members none Living Arrangements House Employment Status Retired M2 PT-IP Current Condition Start: 01/03/18 08:31 Freq: NEEDED Status: Active Protocol: Document 01/03/18 09:00 LRN (Rec: 01/03/18 14:06 LRN [id number]) Physical Therapy Current Condition Current Condition Evaluation Date 01/03/18 Treatment Diagnosis UTI, Compression fractures: T7 , T11 Onset Date Admit: 01/02/18 Precautions Lumbar Precautions Log Roll No Twisting Limit Bending Brace Probable need of lumbar soft support brace. Other Precautions Gait belt above area of compression fractures M3 PT-IP Subjective Start: 01/03/18 08:31 Freq: NEEDED Status: Active Protocol: Document 01/03/18 09:00 LRN (Rec: 01/03/18 14:06 LRN [id number]) Subjective Physical Therapy Visit Type Type Initial Evaluation Visit Start Time 08:25 Visit Stop Time 09:00 Total Visit Minutes 35 Number of MANDOLIN REPAIR PERSON Visits 0 Physical Therapy Visit Comments Patient Comments Pain in back is rated 5/10. Wants to be able to go home. Therapy Pain Assessment Pain When Pain Assessed At Rest Pain Present Pain Present Pain Reported Location Lower Back Scale Used Numeric (1 - 10) M4 PT-IP Mobility and Gait Start: 01/03/18 08:31 Freq: NEEDED Status: Active Protocol: Document 01/03/18 09:00 LRN (Rec: 01/03/18 14:06 LRN [id number]) PT-Bed Mobility Assessment Rolling Level of Assist Maximal Assistance 1 Person Assistance Sit to Supine Sit to Supine Moderate Assistance Scooting Scooting to Edge of Bed Moderate Assistance PT-Transfer Assessment Transfers Transfer Technique Forward/Backward Scoot Transfer Ability Level of Assist Maximum Assistance Comments Mobility Comments MaxA of 2 for moving pt up in bed. Gait Assessment Factors Limiting Gait Function Factors Limiting Gait Function Difficulty Following Directions Poor Safety Awareness Comments Gait Comments Pt had decreased level of consciousness. Patient was very lethargic and unstable in sitting due to lethargy. PT-Balance Assessment Sitting Balance and Reactions Static Sitting Balance Ability Fair M5 PT-IP Objective Assessments Start: 01/03/18 08:31 Freq: NEEDED Status: Active Protocol: Document 01/03/18 09:00 LRN (Rec: 01/03/18 14:06 LRN [id number]) Orientation Orientation/Cognition Level of Alertness Lethargic Orientation Name Place Language Function Ability No Deficits Noted Safety Awareness Decreased Safety Awareness Comments Lethargy possibly from meds causing sleepiness. Gross Range of Motion Lower Extremity ROM Assessment Within Functional Limits Strength Lower Extremity Strength Assessment Within Functional Limits M6 PT-IP Treatment Start: 01/03/18 08:31 Freq: NEEDED Status: Active Protocol: Document 01/03/18 09:00 LRN (Rec: 01/03/18 14:06 LRN [id number]) Physical Therapy Treatment Other Treatments Other Treatment Performed Teaching log rolling method for semi-supine to sit, but pt unable to follow directions. Discussed with pt to try positioning sidelie or supine instead of semi-supine. M7 PT-IP Assessment and Plan Start: 01/03/18 08:31 Freq: NEEDED Status: Active Protocol: Document 01/03/18 09:00 LRN (Rec: 01/03/18 14:06 LRN [id number]) PT Summary Assessment and Plan Potential Rehabilitation Potential Fair Status of Condition at Evaluation Evolving Summary Impairments Pain Balance Cognition Bed Mobility Transfers Gait Assessment Summary Pt is max A with bed mobility & SBA for sitting balance. She is unsafe for standing or walking at this time due to lethargy and back pain. The pt does not follow directions well. Goals Bed Mobility Goal Independent Transfer Goal Independent Gait Goal Independent Four Wheel Walker Gait Distance 100 Frequency of Treatment Frequency Of Treatment Twice a Day Treatment Plan Physical Therapy Treatment Plan Bed Mobility Training Transfer Training Gait Training Therapeutic Exercise Balance Retraining Discharge Planning Hot or Cold Pack Recommendations To Nursing Amount of Assist Needed 1 Person Assist Discharge Recommendations PT Discharge Recommendations Home with Assistance Home with 21/12 Assist SNF Rehab Equipment Needed for Home Before Walker if going home. Discharge
[2018-01-03 09:22] VITALS: BP 96/61; PULSE 70
--- NOTE | 2018-01-03 10:15 | OT.IP.TRT ---
Current Diagnoses Wedge compression fracture of T7-T8 vertebra, initial encounter for closed fracture (01/02/18) Occupational Therapy Treatment Note M3 OT- IP Subjective and Pain Start: 01/03/18 14:29 Freq: Status: Active Protocol: Document 01/03/18 10:15 PJM (Rec: 01/03/18 14:31 PJM [id number]) OT- Subjective Occupational Therapy Visit Type Type Administrative Note Visit Start Time 10:15 Notes OT referral received. Hospitalist, Dr Grewal, requesting to hold therapy today until after ortho consult re: T7 and T11 compression fx's. Will initiate OT evaluation as medical status permits.
[2018-01-03 12:00] VITALS: BP 107/50; PULSE 73; RESP 28; TEMP 36.3; O2SAT 98
--- NOTE | 2018-01-03 13:37 | PC.NURSE ---
Day shift: Pt sleeping now (1330). HAs been sleepy/drowsy since this AM. Gave 20mg oxycodone at approx 0830 and that made her tired but did take care of her pain. Recommend giving only 10mg for next pain assessment. IV fluids running. She has been urinating. Her BP was low this AM after the pain meds but has been trending up and MD aware. CAll light in reach. Bed alarm on. Pt has not been impulsive. ARJUN w/ gaitbelt to NEDRA.
[2018-01-03] MEDS: CEFTRIAXONE 1 GM/50 ML FROZ.PIGGY IV (14:16)
[2018-01-03] MEDS: SODIUM CHLORIDE 0.9% 1,000 ML 100 ML IV ×2 (14:17→20:17)
--- NOTE | 2018-01-03 14:24 | PT.IIE ---
Current Diagnoses Wedge compression fracture of T7-T8 vertebra, initial encounter for closed fracture (01/02/18) Surgical History (Last Updated 01/02/18 @ 14:17 by Maninder Simon MD) History of tonsillectomy (Acute) Previous section (Acute) Medical History (Last Updated 01/02/18 @ 14:26 by Maninder Simon MD) Hypertension (Acute) Atrial fibrillation (Acute) Hypothyroidism (Acute) UTI (urinary tract infection), bacterial (Acute) Physical Therapy Inpatient Evaluation/Re-Eval M1 PT/OT-IP Prior Functional Status Start: 01/03/18 08:31 Freq: NEEDED Status: Active Protocol: Document 01/03/18 09:00 LRN (Rec: 01/03/18 14:06 LRN [id number]) Medical Review Prior Functional Status Medical History Reviewed Yes Mobility and Gait Lives alone Activities of Daily Living and IADL's Independent but with history of falls, 3 in past week. Social History Household Members none Living Arrangements House Employment Status Retired M2 PT-IP Current Condition Start: 01/03/18 08:31 Freq: NEEDED Status: Active Protocol: Document 01/03/18 09:00 LRN (Rec: 01/03/18 14:06 LRN [id number]) Physical Therapy Current Condition Current Condition Evaluation Date 01/03/18 Treatment Diagnosis UTI, Compression fractures: T7 , T11 Onset Date Admit: 01/02/18 Precautions Lumbar Precautions Log Roll No Twisting Limit Bending Brace Probable need of lumbar soft support brace. Other Precautions Gait belt above area of compression fractures M3 PT-IP Subjective Start: 01/03/18 08:31 Freq: NEEDED Status: Active Protocol: Document 01/03/18 09:00 LRN (Rec: 01/03/18 14:06 LRN [id number]) Subjective Physical Therapy Visit Type Type Initial Evaluation Visit Start Time 08:25 Visit Stop Time 09:00 Total Visit Minutes 35 Number of SEO SPECIALIST Visits 0 Physical Therapy Visit Comments Patient Comments Pain in back is rated 5/10. Wants to be able to go home. Therapy Pain Assessment Pain When Pain Assessed At Rest Pain Present Pain Present Pain Reported Location Lower Back Scale Used Numeric (1 - 10) M4 PT-IP Mobility and Gait Start: 01/03/18 08:31 Freq: NEEDED Status: Active Protocol: Document 01/03/18 09:00 LRN (Rec: 01/03/18 14:06 LRN [id number]) PT-Bed Mobility Assessment Rolling Level of Assist Maximal Assistance 1 Person Assistance Sit to Supine Sit to Supine Moderate Assistance Scooting Scooting to Edge of Bed Moderate Assistance PT-Transfer Assessment Transfers Transfer Technique Forward/Backward Scoot Transfer Ability Level of Assist Maximum Assistance Comments Mobility Comments MaxA of 2 for moving pt up in bed. Gait Assessment Factors Limiting Gait Function Factors Limiting Gait Function Difficulty Following Directions Poor Safety Awareness Comments Gait Comments Pt had decreased level of consciousness. Patient was very lethargic and unstable in sitting due to lethargy. PT-Balance Assessment Sitting Balance and Reactions Static Sitting Balance Ability Fair M5 PT-IP Objective Assessments Start: 01/03/18 08:31 Freq: NEEDED Status: Active Protocol: Document 01/03/18 09:00 LRN (Rec: 01/03/18 14:06 LRN [id number]) Orientation Orientation/Cognition Level of Alertness Lethargic Orientation Name Place Language Function Ability No Deficits Noted Safety Awareness Decreased Safety Awareness Comments Lethargy possibly from meds causing sleepiness. Gross Range of Motion Lower Extremity ROM Assessment Within Functional Limits Strength Lower Extremity Strength Assessment Within Functional Limits M6 PT-IP Treatment Start: 01/03/18 08:31 Freq: NEEDED Status: Active Protocol: Document 01/03/18 09:00 LRN (Rec: 01/03/18 14:06 LRN [id number]) Physical Therapy Treatment Other Treatments Other Treatment Performed Teaching log rolling method for semi-supine to sit, but pt unable to follow directions. Discussed with pt to try positioning sidelie or supine instead of semi-supine. M7 PT-IP Assessment and Plan Start: 01/03/18 08:31 Freq: NEEDED Status: Active Protocol: Document 01/03/18 09:00 LRN (Rec: 01/03/18 14:06 LRN [id number]) PT Summary Assessment and Plan Potential Rehabilitation Potential Fair Status of Condition at Evaluation Evolving Summary Impairments Pain Balance Cognition Bed Mobility Transfers Gait Assessment Summary Pt is max A with bed mobility & SBA for sitting balance. She is unsafe for standing or walking at this time due to lethargy and back pain. The pt does not follow directions well. Goals Bed Mobility Goal Independent Transfer Goal Independent Gait Goal Independent Four Wheel Walker Gait Distance 100 Frequency of Treatment Frequency Of Treatment Twice a Day Treatment Plan Physical Therapy Treatment Plan Bed Mobility Training Transfer Training Gait Training Therapeutic Exercise Balance Retraining Discharge Planning Hot or Cold Pack Recommendations To Nursing Amount of Assist Needed 1 Person Assist Discharge Recommendations PT Discharge Recommendations Home with Assistance Home with 21/12 Assist SNF Rehab Equipment Needed for Home Before Walker if going home. Discharge
--- NOTE | 2018-01-03 14:43 | P.PN_ITS ---
Subjective Date Patient Seen: 01/03/18 Time Patient Seen: 14:45 Interval history: Patient complained of severe pain earlier. She received 20 mg of oxycodone and is now very sedated. She is deeply sleepy but arousable Exam Vital Signs (past 8 hours): - Lungs: Clear to Auscultation CV: RRR nl S1S2 Abd: Soft/ non tender nondistended Ext: no edema 01/03/18 07:50 01/03/18 09:22 01/03/18 12:00 Temperature 97.8 F 97.3 F L Pulse Rate 81 70 73 Respiratory Rate 20 28 H Blood Pressure 143/75 H 96/61 107/50 L Pulse Oximetry 98 98 Oxygen Delivery Method Room Air Oxygen Flow Rate 99 Objective Labs Result Diagrams: 01/02/18 05:35 01/02/18 05:35 Assessment & Plan (1) Closed wedge compression fracture of T11 vertebra: Problem details: Patient with significant pain, now sedated. Will decrease pain medications to 10 mg of oxycodone. Await orthopedic consultation. ? candidate for kyphoplasty or vertebroplasty. Osteoporotic, needs to start treatment with Calcium/Vit D/ Bisphosphonate Qualifiers: Encounter type: initial encounter Fracture healing: Qualified Code(s) : S22.080A - Wedge compression fracture of T11-T12 vertebra, initial encounter for closed fracture Current visit: Yes Status: Acute (2) Hypertension: Problem details: Continue usual home medications Current visit: No Status: Acute (3) Diarrhea: Problem details: None today Current visit: No Status: Acute (4) Dehydration: Problem details: Continue IV hydration. Need to continue saline give hyponatremia Current visit: No Status: Acute (5) Hyponatremia: Problem details: Check serum osmolality Fluid restrict Saline for dehydration Current visit: Yes Status: Acute (6) Encephalopathy acute: Problem details: hold narcotics for now Current visit: Yes Status: Acute
[2018-01-03 15:45] VITALS: BP 116/67; PULSE 78; RESP 16; TEMP 35.8; O2SAT 95
--- NOTE | 2018-01-03 16:42 | P.CONS_ITS ---
History of Present Illness Date Patient Seen: 01/03/18 Time Patient Seen: 16:41 Chief complaint: Blood in urine Reason for consult: Thoracic compression fractures Requesting provider: Maninder Simon Narrative: The patient is an 82-year-old woman is asked to see for evaluation of thoracic compression fractures. Patient fell about a week ago and x-rays on 12/30/2017 revealed compression fractures. She came into the emergency room late on 01/01/2018 because of increasing pain. CT scan showed progression of the compression fractures with mild retropulsion into the canal. I was contacted by the emergency room physician. I told him that we did not have any spine surgeons available until next week. He reviewed the case with the spine surgeon her review who recommended conservative treatment with a brace. The patient denies any pain, numbness or tingling into her legs. No bowel or bladder incontinence. [facility] Medical History Hypertension (Acute) Atrial fibrillation (Acute) Hypothyroidism (Acute) UTI (urinary tract infection), bacterial (Acute) Surgical History History of tonsillectomy (Acute) Previous section (Acute) Family History Mother No problems noted. Father No problems noted. Brother No problems noted. Brother No problems noted. Social History household members: none Smoking Status: Former smoker alcohol intake: current Meds Home Medications Medication Instructions Recorded Confirmed Type levothyroxine [Synthroid] 100 mcg PO QDAY #0 02/25/12 01/02/18 History telmisartan [Micardis] 80 mg PO QDAY #0 02/25/12 01/02/18 History metoprolol succinate [Toprol XL] 25 mg PO QPM #0 02/14/17 01/02/18 History metoprolol succinate [Toprol XL] 50 mg PO QAM #0 02/14/17 01/02/18 History rivaroxaban [Xarelto] 15 mg PO QPM 01/02/18 01/02/18 History Allergies Allergy/AdvReac Type Severity Reaction Status Date / Time atenolol [ATENOLOL] AdvReac Intermediate dizzyness Verified 12/24/17 09:44 Exam Vital Signs (past 8 hours): - 01/03/18 09:22 01/03/18 12:00 01/03/18 15:45 Temperature 97.3 F L 96.5 F L Pulse Rate 70 73 78 Respiratory Rate 28 H 16 Blood Pressure 96/61 107/50 L 116/67 Pulse Oximetry 98 95 Oxygen Delivery Method Room Air Oxygen Flow Rate 99 Back/Spine/Pelvis Thoracic/Lumbar Spine: thoracic spinal tenderness Neuro General: alert and awake Motor: muscle tone normal throughout and strength 5/5 throughout Sensory Exam: no sensory deficits noted Objective Labs Result Diagrams: 01/02/18 05:35 01/02/18 05:35 Assessment & Plan Plan: Assessment/Plan Narrative: I was consulted on 01/02/2018 to recommend further treatment for the patient's compression fractures. I discussed with Dr. Simon that we did not have any spine surgeons available until at least Wednesday. I believe there was some confusion with what happened in the emergency room. Dr. Foster had already consulted [facility] spine and went over the patient's x-rays and CT scan. The surgeon at [facility] recommended conservative treatment with a brace as well as outpatient follow-up at [facility]. We will have orthotics make the patient a brace and progress her with physical therapy. Time Spent With Patient Time with patient: less than 15 minutes
[2018-01-03] MEDS: METOPROLOL ER 25 MG TABLET PO (17:54)
[2018-01-03 18:15] LABS: Blood Urea Nitrogen 33 mg/dL (7-17); Calcium 8.6 mg/dL (8.4-10.2); Carbon Dioxide 28 mmol/L (22-32); Chloride 88 mmol/L (98-107); Estimated Glomerular Filt Rate 53.3 mL/min (>60); Glucose 100 mg/dL (80-110); HEMOLYSIS 16 (0-50); Potassium 3.9 mmol/L (3.4-5.1); Sodium 125 mmol/L (137-145)
[2018-01-03 20:19] VITALS: BP 125/75; PULSE 85; RESP 16; TEMP 36.2; O2SAT 95
[2018-01-03] MEDS: OXYCODONE IR 5 MG TABLET 10 MG PO (20:27)
[2018-01-03] MEDS: CALCIUM CARBONATE 500 MG TAB 1000 MG PO (20:27)
[2018-01-04] VITALS (7 sets, daily range): BP systolic 120–156; BP diastolic 63–86; PULSE 78–92; RESP 14–18; TEMP 36.4–37; O2SAT 96–98
[2018-01-04] MEDS: LEVOTHYROXINE 100 MCG TABLET PO (05:54)
[2018-01-04] MEDS: SODIUM CHLORIDE 0.9% 1,000 ML 100 ML IV (05:55)
[2018-01-04] MEDS: OXYCODONE IR 5 MG TABLET 10 MG PO ×2 (08:48→15:33)
[2018-01-04] MEDS: ALENDRONATE 70 MG TABLET PO (10:04)
[2018-01-04] MEDS: levoFLOXacin 250 MG TABLET PO (10:04)
[2018-01-04] MEDS: CHOLECALCIFEROL (VITAMIN D3) 400 UNIT TABLET 800 UNIT PO (10:04)
[2018-01-04] MEDS: CALCIUM CARBONATE 500 MG TAB 1000 MG PO ×2 (10:05→21:30)
[2018-01-04] MEDS: TELMISARTAN 40 MG TABLET 80 MG PO (10:06)
[2018-01-04] MEDS: METOPROLOL ER 25 MG TABLET 50 MG PO (10:06)
[2018-01-04] MEDS: SODIUM CHLORIDE 0.9% FLUSH 10 ML IV ×2 (10:07→22:09)
--- NOTE | 2018-01-04 10:30 | PT.IPTN ---
Current Diagnoses Dehydration (01/02/18) Hypo-osmolality and hyponatremia (01/02/18) Encephalopathy, unspecified (01/02/18) Essential (primary) hypertension (01/02/18) Diarrhea, unspecified (01/02/18) Wedge compression fracture of T7-T8 vertebra, initial encounter for closed fracture (01/02/18) Wedge compression fracture of T11-T12 vertebra, initial encounter for closed fracture (01/02/18) Physical Therapy Treatment Note M2 PT-IP Current Condition Start: 01/03/18 08:31 Freq: NEEDED Status: Active Protocol: Document 01/03/18 09:00 LRN (Rec: 01/03/18 14:06 LRN [id number]) Physical Therapy Current Condition Current Condition Evaluation Date 01/03/18 Treatment Diagnosis UTI, Compression fractures: T7 , T11 Onset Date Admit: 01/02/18 Precautions Lumbar Precautions Log Roll No Twisting Limit Bending Brace Probable need of lumbar soft support brace. Other Precautions Gait belt above area of compression fractures M3 PT-IP Subjective Start: 01/03/18 08:31 Freq: NEEDED Status: Active Protocol: Document 01/04/18 10:28 LRN (Rec: 01/04/18 10:29 LRN [id number]) Subjective Physical Therapy Visit Type Type Treatment Note Notes HOLD THERAPY until pt obtains a TLSO Brace. Ns is aware. Mehul Argueta ([phone]) was called and will meet with nsg now for orders. Treatment Plan Resume PT when pt is fit with TLSO Brace.
--- NOTE | 2018-01-04 11:07 | PM.PN.1 ---
Subjective Date Patient Seen: 01/04/18 Interval history: Patient is awake and alert today. She continues to have back pain but notes the pain control is adequate. She denies shortness of breath, nausea, or diarrhea. We discussed SNF placement and patient was agreeable. She lives at home with her daughter Exam Vital Signs (past 8 hours): - 01/04/18 04:30 01/04/18 07:45 Temperature 98.6 F 97.5 F L Pulse Rate 81 78 Respiratory Rate 16 16 Blood Pressure 156/86 H 147/86 H Pulse Oximetry 98 98 Oxygen Delivery Method Room Air Oxygen Flow Rate 0 Narrative Exam Narrative: Lungs: Clear to auscultation CV:RRR nl S1S2 2/6 DELMIS ABd: soft/non tender non distended Ext: no edema Neuro: non focal Skin: no lesions Objective Labs Result Diagrams: 01/02/18 05:35 01/03/18 15:00 Labs: Laboratory Results - last 24 hr 01/03/18 15:00 Sodium 125 L Potassium 3.9 Chloride 88 L Carbon Dioxide 28 BUN 33 H Creatinine 1.00 Estimated GFR 53.3 L BUN/Creatinine Ratio 33.0 H Glucose 100 Calcium 8.6 Assessment & Plan (1) Encephalopathy acute: Problem details: Continue oxycodone at 10 mg every four hours Current visit: Yes Status: Acute (2) Hyponatremia: Problem details: Check serum osmolality Fluid restrict Saline for dehydration Current visit: Yes Status: Acute (3) Closed wedge compression fracture of T11 vertebra: Problem details: Patient with significant pain, now sedated. Will decrease pain medications to 10 mg of oxycodone. Await orthopedic consultation. ? candidate for kyphoplasty or vertebroplasty. Osteoporotic, needs to start treatment with Calcium/Vit D/Bisphosphonate Much better today. Patient is being fitted for a TLSO brace today. Goal is discharge to SNF soon Qualifiers: Encounter type: initial encounter Fracture healing: Qualified Code(s): S22.080A - Wedge compression fracture of T11-T12 vertebra, initial encounter for closed fracture Current visit: Yes Status: Acute (4) Hypertension: Problem details: Continue usual home medications Current visit: No Status: Acute
--- NOTE | 2018-01-04 11:11 | P.PN_ITS ---
Subjective Date Patient Seen: 01/04/18 Interval history: Patient is awake and alert today. She continues to have back pain but notes the pain control is adequate. She denies shortness of breath, nausea, or diarrhea. We discussed SNF placement and patient was agreeable. She lives at home with her daughter Exam Vital Signs (past 8 hours): - 01/04/18 04:30 01/04/18 07:45 Temperature 98.6 F 97.5 F L Pulse Rate 81 78 Respiratory Rate 16 16 Blood Pressure 156/86 H 147/86 H Pulse Oximetry 98 98 Oxygen Delivery Method Room Air Oxygen Flow Rate 0 Narrative Exam Narrative: Lungs: Clear to auscultation CV:RRR nl S1S2 2/6 DELMIS ABd: soft/non tender non distended Ext: no edema Neuro: non focal Skin: no lesions Objective Labs Result Diagrams: 01/02/18 05:35 01/03/18 15:00 Labs: Laboratory Results - last 24 hr 01/03/18 15:00 Sodium 125 L Potassium 3.9 Chloride 88 L Carbon Dioxide 28 BUN 33 H Creatinine 1.00 Estimated GFR 53.3 L BUN/Creatinine Ratio 33.0 H Glucose 100 Calcium 8.6 Assessment & Plan (1) Encephalopathy acute: Problem details: Continue oxycodone at 10 mg every four hours Current visit: Yes Status: Acute (2) Hyponatremia: Problem details: Check serum osmolality Fluid restrict Saline for dehydration Current visit: Yes Status: Acute (3) Closed wedge compression fracture of T11 vertebra: Problem details: Patient with significant pain, now sedated. Will decrease pain medications to 10 mg of oxycodone. Await orthopedic consultation. ? candidate for kyphoplasty or vertebroplasty. Osteoporotic, needs to start treatment with Calcium/Vit D/ Bisphosphonate Much better today. Patient is being fitted for a TLSO brace today. Goal is discharge to SNF soon Qualifiers: Encounter type: initial encounter Fracture healing: Qualified Code(s) : S22.080A - Wedge compression fracture of T11-T12 vertebra, initial encounter for closed fracture Current visit: Yes Status: Acute (4) Hypertension: Problem details: Continue usual home medications Current visit: No Status: Acute
--- NOTE | 2018-01-04 11:15 | PT.IPTN ---
Current Diagnoses Dehydration (01/02/18) Hypo-osmolality and hyponatremia (01/02/18) Encephalopathy, unspecified (01/02/18) Essential (primary) hypertension (01/02/18) Diarrhea, unspecified (01/02/18) Wedge compression fracture of T7-T8 vertebra, initial encounter for closed fracture (01/02/18) Wedge compression fracture of T11-T12 vertebra, initial encounter for closed fracture (01/02/18) Physical Therapy Treatment Note M2 PT-IP Current Condition Start: 01/03/18 08:31 Freq: NEEDED Status: Active Protocol: Document 01/03/18 09:00 LRN (Rec: 01/03/18 14:06 LRN [id number]) Physical Therapy Current Condition Current Condition Evaluation Date 01/03/18 Treatment Diagnosis UTI, Compression fractures: T7 , T11 Onset Date Admit: 01/02/18 Precautions Lumbar Precautions Log Roll No Twisting Limit Bending Brace Probable need of lumbar soft support brace. Other Precautions Gait belt above area of compression fractures M3 PT-IP Subjective Start: 01/03/18 08:31 Freq: NEEDED Status: Active Protocol: Document 01/04/18 11:15 GGD (Rec: 01/04/18 12:47 GGD [email or web address]) Subjective Physical Therapy Visit Type Type Treatment Note Visit Start Time 10:50 Visit Stop Time 11:15 Total Visit Minutes 25 Number of [employer]OP[employer]ICER Visits 1 Physical Therapy Visit Comments Patient Comments Pt needs assistance for brace fitting. Therapy Pain Assessment Pain When Pain Assessed At Rest Pain Present Pain Present Pain Reported Location Lower Back Intensity 3 Scale Used Numeric (1 - 10) M4 PT-IP Mobility and Gait Start: 01/03/18 08:31 Freq: NEEDED Status: Active Protocol: Document 01/04/18 11:15 GGD (Rec: 01/04/18 12:47 GGD [id number]) PT-Bed Mobility Assessment Rolling Type of Rolling Bilateral Level of Assist Moderate Assistance 1 Person Assistance Supine to Sit Supine to Sit Maximum Assistance 1 Person Assistance Bedrails Scooting Scooting to Edge of Bed Minimal Assistance PT-Transfer Assessment Sit to and From Stand Sit to and from Stand Contact Guard Assistance Use of Upper Extremities Equipment Transfer Assistive Device Gait Belt Front Wheeled Walker Comments Mobility Comments Rolling in bed for brace placement by Mehul at [facility] with mod A x 1. Brace ajustment in sitting. Gait Assessment Gait Gait Assistance Required: Contact Guard Assist Distance (Feet) (feet) 5 Assistive Devices Assistive Device Gait Belt Front Wheeled Walker Orthotic/Prosthetic Devices or Brace: Yes Gait Deviations General Gait Pattern Decreased Stride Length Decreased Feet Clearance Factors Limiting Gait Function Factors Limiting Gait Function Decreased Activity Tolerance Decreased Strength Limited Range of Motion Pain Poor Balance Comments Gait Comments Pt need mod cues for safety with FWW with transfer. M5 PT-IP Objective Assessments Start: 01/03/18 08:31 Freq: NEEDED Status: Active Protocol: Document 01/03/18 09:00 LRN (Rec: 01/03/18 14:06 LRN [id number]) Orientation Orientation/Cognition Level of Alertness Lethargic Orientation Name Place Language Function Ability No Deficits Noted Safety Awareness Decreased Safety Awareness Comments Lethargy possibly from meds causing sleepiness. Gross Range of Motion Lower Extremity ROM Assessment Within Functional Limits Strength Lower Extremity Strength Assessment Within Functional Limits M6 PT-IP Treatment Start: 01/03/18 08:31 Freq: NEEDED Status: Active Protocol: Document 01/03/18 09:00 LRN (Rec: 01/03/18 14:06 LRN [id number]) Physical Therapy Treatment Other Treatments Other Treatment Performed Teaching log rolling method for semi-supine to sit, but pt unable to follow directions. Discussed with pt to try positioning sidelie or supine instead of semi-supine. M7 PT-IP Assessment and Plan Start: 01/03/18 08:31 Freq: NEEDED Status: Active Protocol: Document 01/04/18 11:15 GGD (Rec: 01/04/18 12:47 GGD [id number]) PT Summary Assessment and Plan Summary Assessment Summary Pt need mod to max A with mobility. She did tolerated bed mobility better. She had increase in pain with mobility . She improved with ability to follow directions. Frequency of Treatment Frequency Of Treatment Twice a Day Treatment Plan Physical Therapy Treatment Plan Bed Mobility Training Transfer Training Gait Training Therapeutic Exercise Balance Retraining Discharge Planning Hot or Cold Pack Recommendations To Nursing Amount of Assist Needed 1 Person Assist Discharge Recommendations PT Discharge Recommendations Home with Assistance Home with 24 Assist SNF Rehab Equipment Needed for Home Before Walker if going home. Discharge
--- NOTE | 2018-01-04 11:37 | PM.PN.1 ---
Subjective Date Patient Seen: 01/04/18 Time Patient Seen: 11:09 Interval history: Patient is seen bedside for consult for multiple thoracic compression fractures. She is resting comfortably in her custom TLSO brace. Her pain is well controlled and she is pleasantly confused. Exam Vital Signs (past 8 hours): - 01/04/18 04:30 01/04/18 07:45 Temperature 98.6 F 97.5 F L Pulse Rate 81 78 Respiratory Rate 16 16 Blood Pressure 156/86 H 147/86 H Pulse Oximetry 98 98 Oxygen Delivery Method Room Air Oxygen Flow Rate 0 Narrative Exam Narrative: Patient is well-developed well-nourished in no acute distress. Patient is alert and pleasantly confused. She is currently in a well-fitting TLSO brace. No neurological deficits noted. Tender to palpation over the spine. Objective Labs Result Diagrams: 01/02/18 05:35 01/03/18 15:00 Labs: Laboratory Results - last 24 hr 01/03/18 15:00 Sodium 125 L Potassium 3.9 Chloride 88 L Carbon Dioxide 28 BUN 33 H Creatinine 1.00 Estimated GFR 53.3 L BUN/Creatinine Ratio 33.0 H Glucose 100 Calcium 8.6 Assessment & Plan Plan: Assessment/Plan Narrative: Continue conservative treatment with physical therapy. Patient should ambulate with the brace on. Follow up in the office in 2 weeks time for reexamination and x-rays.
--- NOTE | 2018-01-04 14:49 | PC.NURSE ---
Sánchez has been fitted with a back brace and was able to be up in the chair a great deal today. She took oxycodone for pain early in AM. OT is currently working with her.VSS. Able to void w/ out incontinence. Some STM issues, otherwise alert and cooperative. Visited by supportive dtgr. today.
--- NOTE | 2018-01-04 14:55 | OT.IP.EVAL ---
Current Diagnoses Dehydration (01/02/18) Hypo-osmolality and hyponatremia (01/02/18) Encephalopathy, unspecified (01/02/18) Essential (primary) hypertension (01/02/18) Diarrhea, unspecified (01/02/18) Wedge compression fracture of T7-T8 vertebra, initial encounter for closed fracture (01/02/18) Wedge compression fracture of T11-T12 vertebra, initial encounter for closed fracture (01/02/18) Past Medical History (Last Reviewed 01/03/18 @ 16:44 by Franc Nuñez MD) Hypertension (Acute) Atrial fibrillation (Acute) Hypothyroidism (Acute) UTI (urinary tract infection), bacterial (Acute) Surgical History (Last Reviewed 01/03/18 @ 16:44 by Franc Nuñez MD) History of tonsillectomy (Acute) Previous section (Acute) Occupational Therapy Inpatient Evaluation/Re-Eval M1 PT/OT-IP Prior Functional Status Start: 01/03/18 08:31 Freq: NEEDED Status: Active Protocol: Document 01/04/18 15:08 PJ (Rec: 01/04/18 15:30 [facility] [id number]) Medical Review Prior Functional Status Medical History Reviewed Yes Diet/Fluid Consistency Regular Communication WFL Mobility and Gait Lives alone Activities of Daily Living and IADL's Independent but with history of falls, 3 in past week. Prior Functional Level (Other details) No family here to confirm home situation. Pt states her daughter lives near [place]. Social History Household Members none Living Arrangements House Number of Floors (Floors) One Floor Employment Status Retired Additional Social History Comment Pt unable to provide hx due to confusion M2 OT-IP Current Condition Start: 01/03/18 14:29 Freq: Status: Active Protocol: Document 01/04/18 15:08 PJ (Rec: 01/04/18 15:30 [facility] [id number]) Occupational Therapy Current Condition Current Condition Evaluation Date 01/04/18 Treatment Diagnosis decreased cognition, self care , mobility due to T7/T11 compression fx's Diagnosis Onset Date 01/03/18 Post Operative Precautions Lumbar Precautions Log Roll No Twisting Limit Bending Other Precautions TLSO brace on at all times; Gait belt above area of compression fractures M3 OT- IP Subjective and Pain Start: 01/03/18 14:29 Freq: Status: Active Protocol: Document 01/04/18 15:08 PJM (Rec: 01/04/18 15:30 PJ [id number]) OT- Subjective Occupational Therapy Visit Type Type Initial Evaluation Visit Start Time 14:30 Visit Stop Time 14:55 Total Visit Minutes 25 Notes Pt drowsy this session. Occupational Therapy Visit Comments Patient/Caregiver Goals to go home OT Pain Assessment Pain When Pain Assessed After Treatment Pain Present Pain Present Pain Reported Location Lower Back Intensity 5 Scale Used Numeric (1 - 10) Description Aching Pain Behaviors Facial Grimacing Guarding Management Techniques Distraction Re-positioning Timing of Activity with Medications M4 OT- IP ADL's Start: 01/03/18 14:29 Freq: Status: Active Protocol: Document 01/04/18 15:08 PJ (Rec: 01/04/18 15:30 [facility] [id number]) OT OIM-Vxcp-Xlxdrsg General Evaluation Self-Feeding Ability Standby Assistance Comments OT Self-Feeding Comments Pt found supine in bed chewing on food in mouth. Removed teaspoon of chewed food from pt's mouth. Requested S.T. swallow evaluation from Dr Grewal. Notified RN/ROLLER MECHANIC and posted noted on white board to chek pt's mouth after every meal for pocketed food. OT ADL-Grooming General Evaluation Grooming Ability Minimal Assistance Areas Needing Assistance Retrieving/Set-up of Grooming Items Face Washing Comments OT Grooming Comments in bed OT ADL-Oral Care General Eval Oral Care Ability Minimal Assistance Areas of Assistance Brushing Teeth Devices Oral Care Devices Sponge/Foam Tipped Swab Toothbrush Comments Oral Care Comments Pt need min assist and max cues to remove pocketed food from mouth with swab and toothbrush. OT ADL-Dressing General Eval Upper Body Dressing Ability Minimal Assistance Lower Body Dressing Ability Maximum Assistance OT ADL-Toileting General Evaluation Toileting Ability Maximum Assistance Areas Needing Assistance Manage Clothing Devices Toileting Assistive Devices Grab Bars Raised Toilet Seat Comments OT Toileting Comments pt needs max verbal cues to use grab bar and decreased dynamic standing balance noted during lower body clothing management OT ADL-Bathing Bathing Type Bathing Type Bed Bath General Evaluation Bathing Ability Total Assistance M5 OT- IP IADL's Start: 01/03/18 14:29 Freq: Status: Active Protocol: Document 01/04/18 15:08 PJM (Rec: 01/04/18 15:30 PJ [id number]) OT-Instrumental Activities of Daily Living Deficits IADL Deficits Identified Deficits Home Safety Awareness Awareness of Need for Assistance at Home Decreased Awareness Ability to Problem Solve Emergency Unable to Problem Solve Situations Medication Management Medication Management Comments Pt unable to manage medications a this time due to confusion, memory deficits. Money Management Money Management Comments Pt needs total assist at present Meal Preparation Meal Preparation Comments total assist at present Roof Truss Machine Tender Roof Truss Machine Tender Comments total assist at present Driving Driving Comments Not sure of pt's past driving hx, but now unable to drive M6 OT- IP Functional Cognition Start: 01/03/18 14:29 Freq: Status: Active Protocol: Document 01/04/18 15:08 [facility] (Rec: 01/04/18 15:30 [facility] [id number]) Cognitive Factors Limiting Selfcare Function Cognitive Ability Level of Alertness Drowsy Patient Orientation Name Age Place Attention Span Ability Unable to Focus Unable to Sustain Attention Ability to Follow Commands Able to Follow One Step Commands Memory Description Short Term Impaired Safety Awareness Decreased Recall of Precautions Decreased Ability to Apply Precautions Underestimates Need for Assistance Problem Solving Ability Unable to Identify Errors Needs Assist to Identify Solutions Executive Function Ability Unable to Hold Focus Cognitive Comments Cognitive Assessment Comments Pt drowsy this session with very poor safety awareness. Pt unable to recall or apply spine precautions. Very poor safety awareness with FWW use requiring max verbal cues. OT- Vision and Hearing OT- Hearing Assessment OT- Hearing Assessment WFL OT- Vision Assessment Visual Acuity WFL Glasses All The Time Vision Assessment Comments Pt denies any recent vision changes; wears bifocals. M7 OT- IP Mobility and Balance Start: 01/03/18 14:29 Freq: Status: Active Protocol: Document 01/04/18 15:08 PJ (Rec: 01/04/18 15:30 [facility] [id number]) OT- Bed Mobility Assessment Rolling Type of Rolling Log Rolling Roll to Right Level of Assistance Minimal Assistance Supine to Sit Supine to Sit Assist Minimal Assistance Head of Bed Elevated Bedrails Sit to Supine Sit to Supine Assist Moderate Assistance Scooting Scooting to Edge of Bed Standby Assistance 1 Person Assistance OT-Transfer Assessment Sit to and From Stand Sit to and from Stand Minimal Assistance 1 Person Assistance Transfers Transfer Ability Minimal Assistance 1 Person Assistance Technique Transfer Destination Bed Toilet Transfer Technique Stand Step Pivot Devices Transfer Assistive Devices Gait Belt Front Wheeled Walker Comments Mobility Comments Pt needs max verbal cues for log rolling technique. OT- Gait Assessment Gait Gait Assistance Required: Minimum Assistance Assistive Devices Assistive Device Gait Belt Front Wheeled Walker Comments Gait Ability Comments Pt needs hand over hand assist to steer FWW towards target location. OT- Balance Assessment Sitting Balance and Reactions Static Sitting Balance Ability Fair Dynamic Sitting Balance Ability Poor Standing Balance and Reactions Static Standing Balance Ability Fair Dynamic Standing Balance Ability Poor M8 OT- IP Objective Assessments Start: 01/03/18 14:29 Freq: Status: Active Protocol: Document 01/04/18 15:08 PJ (Rec: 01/04/18 15:30 [facility] [id number]) OT Gross Range of Motion Upper Extremity Range of Motion Assessment Within Functional Limits OT Strength Upper Extremity Strength Assessment Within Functional Limits OT- Coordination Assessment Comments Coordination Comments B hand coordination WFL but inattention to detail interferes with completion of some tasks e.g aligning cap on toothpaste OT-Muscle Tone Assessment Muscle Tone WNL Yes OT Sensation Assessment Comments Summary Comments Pt detects lt touch in BUE. Edema Edema Absent M9 OT- IP Assessment and Plan Start: 01/03/18 14:29 Freq: Status: Active Protocol: Document 01/04/18 15:08 PJM (Rec: 01/04/18 15:30 [facility] [id number]) OT Summary Assessment and Plan Potential Analytic Complexity at Evaluation Low Summary OT Impairments Pain Functional Mobility Self-Feeding Grooming Dressing Toileting Bathing Toilet Transfers Shower Transfers Assessment Summary Low complexity OT assessment completed on this 82 yr old woman with hx of multiple falls at home and T7 and T11 compression fx's. Pt in TLSO brace at all times. Pt has performance deficits in functional cognition, oriented to self and place only. Pt does not recall or attempt to follow spine precautions and requires max verbal cues and hand over hand guiding to steer FWW for short distance ambulation in room. Pt also has performance deficits in all self care skills including self feeding with significant pocketing of food in mouth noted 2+ hours after meal. Pt is far below her baseline level of function and is not safe to return home alone She currently needs 24/7 assist with close supervision for safety. Recommend SNF at discharge for further subacute rehab. Goals Self-Feeding Goal Independent Grooming Goal Standby Assistance Dressing Goal Minimal Assistance Toileting Goal Standby Assistance Bathing Goal Moderate Assistance Toilet Transfer Goal Standby Assistance Shower Transfer Goal Contact Guard Assistance Patient/Caregiver Education Goal Demonstrate Post-Op Precautions Caregiver Independent Assisting Patient Days to Meet Goals 7 Frequency of Treatment Frequency Of Treatment Once a Day Treatment Plan OT Treatment Plan ADL Training Functional Cognition Training Functional Mobility Patient/Family Education Discharge Planning Discharge Recommendations OT Discharge Recommendations Home with 21/12 Assist Home Health SNF Rehab Home Equipment Needs to be determined in next rehab setting
--- NOTE | 2018-01-04 15:33 | PT.IPTN ---
Current Diagnoses Dehydration (01/02/18) Hypo-osmolality and hyponatremia (01/02/18) Encephalopathy, unspecified (01/02/18) Essential (primary) hypertension (01/02/18) Diarrhea, unspecified (01/02/18) Wedge compression fracture of T7-T8 vertebra, initial encounter for closed fracture (01/02/18) Wedge compression fracture of T11-T12 vertebra, initial encounter for closed fracture (01/02/18) Physical Therapy Treatment Note M2 PT-IP Current Condition Start: 01/03/18 08:31 Freq: NEEDED Status: Active Protocol: Document 01/03/18 09:00 LRN (Rec: 01/03/18 14:06 LRN [id number]) Physical Therapy Current Condition Current Condition Evaluation Date 01/03/18 Treatment Diagnosis UTI, Compression fractures: T7 , T11 Onset Date Admit: 01/02/18 Precautions Lumbar Precautions Log Roll No Twisting Limit Bending Brace Probable need of lumbar soft support brace. Other Precautions Gait belt above area of compression fractures M3 PT-IP Subjective Start: 01/03/18 08:31 Freq: NEEDED Status: Active Protocol: Document 01/04/18 15:32 GGD (Rec: 01/04/18 15:32 GGD [id number]) Subjective Physical Therapy Visit Type Type Patient Refusal Notes Pt refused, states that she having to much pain to move and has just got back to bed. Frequency Of Treatment Twice a Day Treatment Plan Physical Therapy Treatment Plan Bed Mobility Training Transfer Training Gait Training Therapeutic Exercise Balance Retraining Discharge Planning Hot or Cold Pack Recommendations To Nursing Amount of Assist Needed 1 Person Assist Discharge Recommendations PT Discharge Recommendations Home with Assistance Home with 24/7 Assist SNF Rehab Equipment Needed for Home Before Walker if going home. Discharge
[2018-01-04] MEDS: METOPROLOL ER 25 MG TABLET PO (17:29)
--- NOTE | 2018-01-04 22:36 | PC.NURSE ---
Becca shift- A/O x3, and moderate STM. Denies nausea and SOB. 5mg oxycodone effective throughout shift, for 5/10 pain. Pt wearing TLSO brace. Dennis garcia visited. No food pocketed after dinner noted. Pt drinking fluids after bites. Call light in reach and bed alarm on.
[2018-01-05] VITALS (8 sets, daily range): BP systolic 145–162; BP diastolic 75–91; PULSE 67–96; RESP 15–18; TEMP 36.2–37.1; O2SAT 94–99
[2018-01-05] MEDS: OXYCODONE IR 5 MG TABLET 10 MG PO ×3 (01:56→13:57)
[2018-01-05] MEDS: LEVOTHYROXINE 100 MCG TABLET PO (05:47)
--- NOTE | 2018-01-05 06:20 | PC.NURSE ---
Confused at times, approp and oriented at other times this shift. Medicated w/ 5mg Oxycodone 2 times for back pain, pt sleeping heavily after each dose. Confused upon initial awakening, reorients easily. Continued to medicate w/ lower oxycodone dose (as previous shift did), d/t sedation. Pt states TLSO back brace feels better, declined removal while in bed this shift. Impulsive x2 when getting up to void triggering bed alarm, called approp other times.
--- NOTE | 2018-01-05 09:25 | PT.IPTN ---
Current Diagnoses Dehydration (01/02/18) Hypo-osmolality and hyponatremia (01/02/18) Encephalopathy, unspecified (01/02/18) Essential (primary) hypertension (01/02/18) Diarrhea, unspecified (01/02/18) Wedge compression fracture of T7-T8 vertebra, initial encounter for closed fracture (01/02/18) Wedge compression fracture of T11-T12 vertebra, initial encounter for closed fracture (01/02/18) Physical Therapy Treatment Note M2 PT-IP Current Condition Start: 01/03/18 08:31 Freq: NEEDED Status: Active Protocol: Document 01/03/18 09:00 LRN (Rec: 01/03/18 14:06 LRN [id number]) Physical Therapy Current Condition Current Condition Evaluation Date 01/03/18 Treatment Diagnosis UTI, Compression fractures: T7 , T11 Onset Date Admit: 01/02/18 Precautions Lumbar Precautions Log Roll No Twisting Limit Bending Brace Probable need of lumbar soft support brace. Other Precautions Gait belt above area of compression fractures M3 PT-IP Subjective Start: 01/03/18 08:31 Freq: NEEDED Status: Active Protocol: Document 01/05/18 09:25 GGD (Rec: 01/05/18 12:08 GGD [id number]) Subjective Physical Therapy Visit Type Type Treatment Note Visit Start Time 09:00 Visit Stop Time 09:25 Total Visit Minutes 25 Number of COMMUTATOR REPAIRER Visits 2 Physical Therapy Visit Comments Patient Comments Pt was up to bathroom with TELETYPEWRITER OPERATOR . Therapy Pain Assessment Pain When Pain Assessed At Rest Pain Present Pain Present Denied Pain M4 PT-IP Mobility and Gait Start: 01/03/18 08:31 Freq: NEEDED Status: Active Protocol: Document 01/05/18 09:25 GGD (Rec: 01/05/18 12:08 GGD [id number]) PT-Bed Mobility Assessment Rolling Type of Rolling Log Rolling Level of Assist Moderate Assistance 1 Person Assistance Sit to Supine Sit to Supine Moderate Assistance 1 Person Assistance Bedrails PT-Transfer Assessment Sit to and From Stand Sit to and from Stand Contact Guard Assistance Use of Upper Extremities Equipment Transfer Assistive Device Gait Belt Front Wheeled Walker Gait Assessment Gait Gait Assistance Required: Contact Guard Assist Distance (Feet) (feet) 10 Assistive Devices Assistive Device Gait Belt Front Wheeled Walker Gait Deviations General Gait Pattern Decreased Stride Length Decreased Feet Clearance Factors Limiting Gait Function Factors Limiting Gait Function Decreased Activity Tolerance Decreased Strength Limited Range of Motion Pain Poor Balance Comments Gait Comments Pt need mod cues for all mobility. M5 PT-IP Objective Assessments Start: 01/03/18 08:31 Freq: NEEDED Status: Active Protocol: Document 01/03/18 09:00 LRN (Rec: 01/03/18 14:06 LRN [id number]) Orientation Orientation/Cognition Level of Alertness Lethargic Orientation Name Place Language Function Ability No Deficits Noted Safety Awareness Decreased Safety Awareness Comments Lethargy possibly from meds causing sleepiness. Gross Range of Motion Lower Extremity ROM Assessment Within Functional Limits Strength Lower Extremity Strength Assessment Within Functional Limits M6 PT-IP Treatment Start: 01/03/18 08:31 Freq: NEEDED Status: Active Protocol: Document 01/03/18 09:00 LRN (Rec: 01/03/18 14:06 LRN [id number]) Physical Therapy Treatment Other Treatments Other Treatment Performed Teaching log rolling method for semi-supine to sit, but pt unable to follow directions. Discussed with pt to try positioning sidelie or supine instead of semi-supine. M7 PT-IP Assessment and Plan Start: 01/03/18 08:31 Freq: NEEDED Status: Active Protocol: Document 01/05/18 09:25 GGD (Rec: 01/05/18 12:08 GGD [id number]) PT Summary Assessment and Plan Summary Assessment Summary Pt improving with mobility and decrease assist. She needed increase in cues and had diffculty following directions . Frequency of Treatment Frequency Of Treatment Twice a Day Treatment Plan Physical Therapy Treatment Plan Bed Mobility Training Transfer Training Gait Training Therapeutic Exercise Balance Retraining Discharge Planning Hot or Cold Pack Recommendations To Nursing Amount of Assist Needed 1 Person Assist Discharge Recommendations PT Discharge Recommendations SNF Rehab
[2018-01-05] MEDS: ALENDRONATE 70 MG TABLET PO (09:26)
[2018-01-05] MEDS: CALCIUM CARBONATE 500 MG TAB 1000 MG PO ×2 (09:27→20:24)
[2018-01-05] MEDS: levoFLOXacin 250 MG TABLET PO (09:27)
[2018-01-05] MEDS: CHOLECALCIFEROL (VITAMIN D3) 400 UNIT TABLET 800 UNIT PO (09:27)
[2018-01-05] MEDS: METOPROLOL ER 25 MG TABLET 50 MG PO (09:28)
[2018-01-05] MEDS: TELMISARTAN 40 MG TABLET 80 MG PO (09:28)
[2018-01-05] MEDS: SODIUM CHLORIDE 0.9% FLUSH 10 ML IV ×2 (09:31→20:25)
--- NOTE | 2018-01-05 12:06 | PM.DS.1 ---
History of Present Illness Chief complaint: Blood in urine Narrative: Patient is postop day 1. Patient presents sitting up right in chair accompanied by his . Patient reports pain level is 3/10. Patient denies any acute distress, chest pain, fever or chills. Patient states his will be at home for assistance upon discharge. Patient states that he is ready to go home today. Discharge Providers Date of admission: 01/02/18 02:24 Consults: 01/02/18 04:18 Consult to Physical Therapy Evaluate & Treat Comment: Physician Instructions: Evaluate and Treat 01/02/18 04:19 Consult to Occupational Therapy Evaluate & Treat Comment: Physician Instructions: Evaluate and treat Discharge provider: Altagracia Christianson PA-C Exam Vital Signs (past 8 hours): - 01/05/18 05:48 01/05/18 08:30 Temperature 97.8 F 97.6 F Pulse Rate 67 83 Respiratory Rate 15 16 Blood Pressure 148/80 H 162/84 H Pulse Oximetry 98 98 Oxygen Delivery Method Room Air Oxygen Flow Rate 0 Narrative Exam Narrative: Patient is AOx3. He is able to ambulate as tolerated. There is limited lumbar ROM. There is no swelling noted at the incision site. Dressing lumbar spine is clean and intact. Sensory and motor function intact in the LE bilaterally. Objective Labs Result Diagrams: 01/02/18 05:35 01/03/18 15:00 Discharge Plan Discharge Data Attending Provider: Maninder Simon Admit Date/Time: 01/02/18 02:24
--- NOTE | 2018-01-05 13:45 | OT.IP.TRT ---
Current Diagnoses Dehydration (01/02/18) Hypo-osmolality and hyponatremia (01/02/18) Encephalopathy, unspecified (01/02/18) Essential (primary) hypertension (01/02/18) Diarrhea, unspecified (01/02/18) Wedge compression fracture of T7-T8 vertebra, initial encounter for closed fracture (01/02/18) Wedge compression fracture of T11-T12 vertebra, initial encounter for closed fracture (01/02/18) Occupational Therapy Treatment Note M2 OT-IP Current Condition Start: 01/03/18 14:29 Freq: Status: Active Protocol: Document 01/04/18 15:08 PJM (Rec: 01/04/18 15:30 PJM [id number]) Occupational Therapy Current Condition Current Condition Evaluation Date 01/04/18 Treatment Diagnosis decreased cognition, self care , mobility due to T7/T11 compression fx's Diagnosis Onset Date 01/03/18 Post Operative Precautions Lumbar Precautions Log Roll No Twisting Limit Bending Other Precautions TLSO brace on at all times; Gait belt above area of compression fractures M3 OT- IP Subjective and Pain Start: 01/03/18 14:29 Freq: Status: Active Protocol: Document 01/05/18 13:48 PJM (Rec: 01/05/18 13:59 PJM [id number]) OT- Subjective Occupational Therapy Visit Type Type Treatment Note Visit Start Time 13:05 Visit Stop Time 13:45 Total Visit Minutes 40 Notes Pt's daughter here for education this session. She states she has quit her job and plans to stay with her mother after rehab. Occupational Therapy Visit Comments Patient Comments My back is really hurting. Patient/Caregiver Goals to go home and see my cat OT Pain Assessment Pain When Pain Assessed After Treatment Location Lower Back Intensity 6 Scale Used Numeric (1 - 10) Description Aching Acute Pain Behaviors Facial Grimacing Guarding Management Techniques Distraction Re-positioning Timing of Activity with Medications M4 OT- IP ADL's Start: 01/03/18 14:29 Freq: Status: Active Protocol: Document 01/05/18 13:48 PJM (Rec: 01/05/18 13:59 PJM [id number]) OT [id number]-[id number]-[place] General Evaluation Self-Feeding Ability Standby Assistance Comments OT Self-Feeding Comments Provided education to pt's daughter re: need to check for pocketing of food after meals . Daughter states shis had occurred at home prior to admit also. OT ADL-Grooming General Evaluation Grooming Ability Contact Guard Assistance Comments OT Grooming Comments washing hands at sink with FWW , pt needs cues for hand placement on FWW OT ADL-Dressing Comments OT Dressing Comments Provided education to pt's daughter re: optimal clothing choices for rehab stay and need for tight fitting shirt under brace. Daughter will bring pt's whizzer operator in. OT ADL-Toileting General Evaluation Toileting Ability Minimal Assistance Areas Needing Assistance Manage Clothing Devices Toileting Assistive Devices Grab Bars Raised Toilet Seat Comments OT Toileting Comments Pt needs supervision for ron care and min assist with clothing management. Improved effort and standing balance compared to yesterday. M M6 OT- IP Functional Cognition Start: 01/03/18 14:29 Freq: Status: Active Protocol: Document 01/05/18 13:48 PJM (Rec: 01/05/18 13:59 [facility] [id number]) Cognitive Factors Limiting Selfcare Function Cognitive Ability Level of Alertness Alert Patient Orientation Name Place Attention Span Ability Capable of Focused Attention Ability to Follow Commands Able to Follow One Step Commands Safety Awareness Decreased Recall of Precautions Decreased Ability to Apply Precautions Underestimates Need for Assistance Problem Solving Ability Unable to Identify Errors Needs Assist to Identify Solutions Cognitive Comments Cognitive Assessment Comments Pt more alert today with faster speed of processing and some appropriate conversation with daughter. Daughter reports pt has had gradually increasing memory deficits over past year. Pt did state she thought she saw cat in room. RN notified. Pt continues to have difficulty with basic orientation facts. M7 OT- IP Mobility and Balance Start: 01/03/18 14:29 Freq: Status: Active Protocol: Document 01/05/18 13:48 PJM (Rec: 01/05/18 13:59 [facility] [id number]) OT- Bed Mobility Assessment Rolling Type of Rolling Roll to Right Level of Assistance Contact Guard Assistance Head of Bed Elevated Bedrails Supine to Sit Supine to Sit Assist Standby Assistance 1 Person Assistance Head of Bed Elevated Scooting Scooting to Edge of Bed Standby Assistance 1 Person Assistance OT-Transfer Assessment Sit to and From Stand Sit to and from Stand Contact Guard Assistance Transfers Transfer Ability Minimal Assistance Technique Transfer Destination Toilet Transfer Technique Stand Step Pivot Devices Transfer Assistive Devices Gait Belt Front Wheeled Walker Comments Mobility Comments CGA to descend to toielt, min assist to arise due to unsteadiness with FWW OT- Gait Assessment Gait Gait Assistance Required: Contact Guard Assist Distance (Feet) (feet) 25 Assistive Devices Assistive Device Gait Belt Front Wheeled Walker Comments Gait Ability Comments better ability to steer walker today; still needs cues for hand placement OT- Balance Assessment Standing Balance and Reactions Static Standing Balance Ability Fair Dynamic Standing Balance Ability Fair M9 OT- IP Assessment and Plan Start: 01/03/18 14:29 Freq: Status: Active Protocol: Document 01/05/18 13:48 PJM (Rec: 01/05/18 13:59 PJM [id number]) OT Summary Assessment and Plan Summary OT Impairments Pain Strength Balance Functional Cognition Functional Mobility Grooming Dressing Toileting Bathing Toilet Transfers Shower Transfers Frequency of Treatment Frequency Of Treatment Once a Day Treatment Plan OT Treatment Plan ADL Training Functional Cognition Training Functional Mobility Patient/Family Education Discharge Planning Discharge Recommendations OT Discharge Recommendations SNF Rehab Home Equipment Needs to be determined in next rehab setting
--- NOTE | 2018-01-05 14:24 | P.PN_ITS ---
Subjective Date Patient Seen: 01/05/18 Interval history: Patient has TLSO brace in place. She continues to report pain at 5/10. She is eager to return home. Her daughter is at her bedside and agreeable to take her Mom home Exam Vital Signs (past 8 hours): - 01/05/18 08:30 Temperature 97.6 F Pulse Rate 83 Respiratory Rate 16 Blood Pressure 162/84 H Pulse Oximetry 98 Oxygen Delivery Method Room Air Oxygen Flow Rate 0 Narrative Exam Narrative: Lungs: Clear to auscultation CV: RRR [id number] Abd: soft/non tender/ non distended Ext: no edema TLSO Brace in place Objective Labs Result Diagrams: 01/02/18 05:35 01/03/18 15:00 Assessment & Plan (1) Closed wedge compression fracture of T11 vertebra: Problem details: Patient with significant pain, now sedated. Will decrease pain medications to 10 mg of oxycodone. Await orthopedic consultation. ? candidate for kyphoplasty or vertebroplasty. Osteoporotic, needs to start treatment with Calcium/Vit D/ Bisphosphonate Much better today. Patient is being fitted for a TLSO brace today. Goal is discharge to SNF soon. Daughter decided to take patient home with home health Qualifiers: Encounter type: initial encounter Fracture healing: Qualified Code(s) : S22.080A - Wedge compression fracture of T11-T12 vertebra, initial encounter for closed fracture Current visit: Yes Status: Acute (2) Hypertension: Problem details: Continue usual home medications Current visit: No Status: Acute (3) Hyponatremia: Problem details: Check serum osmolality Fluid restrict Saline for dehydration, repeat BMP, fluid restrict Current visit: Yes Status: Acute
--- NOTE | 2018-01-05 15:27 | CM.DPC ---
DCP: continued: case received, EMR reviewed and spoke with Dr. Grewal in morning team meeting. She stated that pt would need a snf for recovery/rehab and that she was agreeble to same.j Met then with pt, noted she did seem to have some cognitive deficits and especiallly short term memory. She agreed to have me discuss this with her daughter but did say she agreed with the doctor that she needed rehab. Called pt's daughter Delmy [phone] to discuss. She stated this was wonderful news as she was feeling overwhelmed by the care her mother would need with the TLSO and felt she would greatly benefit from the rehab stay. SNF choice list: discussed: Decision: [facility] Referral to [facility]/accepted and stated she could accept pt today if stable. Was alerted this afternoon at [address] Grewal had just met with pt, her daughter and her son and that the plan would now be for home tomorrow with [facility]. Confirmed same with Dr. Grewal and then met in room with pt, Delmy and her brother. Delmy said that after further discussion she thought she might be able to manage at home and that Dr. Grewal had agreed to give the family until tomorrow to get all in place for pt. HH discussed: Choice list: provided: decision: [facility] Gave referral to [facility] who accepts and says [facility] can see pt day after d/c. Will fax face sheet now to hold place and have left note for RAY Saha to fax rest of referral info tomorrow. Need: Face/Face paperwork with signature of provider and RN/OT/PT orders: DCP team to follow up tomorrow. P: at this point: home tomorrow with family care and [facility] services OF NOTE: Delmy did take me aside after the conversation and asked what she could do if they got home and realized the rehab stay at [facility] was needed. Explained the 30 day window/snf/Medicare benefit and encouraged her to call [facility] directly, ask for admissions and that they would work with her doctor's office to obtain orders. [facility] was updated re same and very agreeable.
--- NOTE | 2018-01-05 15:35 | PT.IPTN ---
Current Diagnoses Dehydration (01/02/18) Hypo-osmolality and hyponatremia (01/02/18) Encephalopathy, unspecified (01/02/18) Essential (primary) hypertension (01/02/18) Diarrhea, unspecified (01/02/18) Wedge compression fracture of T7-T8 vertebra, initial encounter for closed fracture (01/02/18) Wedge compression fracture of T11-T12 vertebra, initial encounter for closed fracture (01/02/18) Physical Therapy Treatment Note M2 PT-IP Current Condition Start: 01/03/18 08:31 Freq: NEEDED Status: Active Protocol: Document 01/03/18 09:00 LRN (Rec: 01/03/18 14:06 LRN [id number]) Physical Therapy Current Condition Current Condition Evaluation Date 01/03/18 Treatment Diagnosis UTI, Compression fractures: T7 , T11 Onset Date Admit: 01/02/18 Precautions Lumbar Precautions Log Roll No Twisting Limit Bending Brace Probable need of lumbar soft support brace. Other Precautions Gait belt above area of compression fractures M3 PT-IP Subjective Start: 01/03/18 08:31 Freq: NEEDED Status: Active Protocol: Document 01/05/18 15:35 MDD (Rec: 01/05/18 15:51 MDD [id number]) Subjective Physical Therapy Visit Type Type Treatment Note Visit Start Time 15:19 Visit Stop Time 15:35 Total Visit Minutes 16 Number of HOISTER Visits 0 Physical Therapy Visit Comments Patient Comments Pt initially refuses therapy, but agreeable to getting out of bed to use the restroom. Therapy Pain Assessment Pain When Pain Assessed At Rest Pain Present Pain Present Pain Reported Location Lower Back Intensity 3 Scale Used Numeric (1 - 10) Description Aching M4 PT-IP Mobility and Gait Start: 01/03/18 08:31 Freq: NEEDED Status: Active Protocol: Document 01/05/18 09:25 GGD (Rec: 01/05/18 12:08 GGD [id number]) PT-Bed Mobility Assessment Rolling Type of Rolling Log Rolling Level of Assist Moderate Assistance 1 Person Assistance Sit to Supine Sit to Supine Moderate Assistance 1 Person Assistance Bedrails PT-Transfer Assessment Sit to and From Stand Sit to and from Stand Contact Guard Assistance Use of Upper Extremities Equipment Transfer Assistive Device Gait Belt Front Wheeled Walker Gait Assessment Gait Gait Assistance Required: Contact Guard Assist Distance (Feet) (feet) 10 Assistive Devices Assistive Device Gait Belt Front Wheeled Walker Gait Deviations General Gait Pattern Decreased Stride Length Decreased Feet Clearance Factors Limiting Gait Function Factors Limiting Gait Function Decreased Activity Tolerance Decreased Strength Limited Range of Motion Pain Poor Balance Comments Gait Comments Pt need mod cues for all mobility. M5 PT-IP Objective Assessments Start: 01/03/18 08:31 Freq: NEEDED Status: Active Protocol: Document 01/03/18 09:00 LRN (Rec: 01/03/18 14:06 LRN [id number]) Orientation Orientation/Cognition Level of Alertness Lethargic Orientation Name Place Language Function Ability No Deficits Noted Safety Awareness Decreased Safety Awareness Comments Lethargy possibly from meds causing sleepiness. Gross Range of Motion Lower Extremity ROM Assessment Within Functional Limits Strength Lower Extremity Strength Assessment Within Functional Limits M6 PT-IP Treatment Start: 01/03/18 08:31 Freq: NEEDED Status: Active Protocol: Document 01/05/18 15:35 MDD (Rec: 01/05/18 15:51 MDD [id number]) Physical Therapy Treatment Other Treatments Other Treatment Performed Practice with log roll right. Cueing and CGA to min A from supine to sitting. CGA for sit to stand and with gait. Pt able to perform ron care independently with CGA from therapist today. Pt with difficulty performing log roll back into bed despite cues. M7 PT-IP Assessment and Plan Start: 01/03/18 08:31 Freq: NEEDED Status: Active Protocol: Document 01/05/18 15:35 MDD (Rec: 01/05/18 15:51 MDD [id number]) PT Summary Assessment and Plan Potential Rehabilitation Potential Good Status of Condition at Evaluation Evolving Summary Impairments Pain Bed Mobility Transfers Gait Activity Tolerance Progress Towards Goals Progressing Toward Goals Assessment Summary Pt with improved functional mobility this afternoon. She seems better able to follow cues appropriately and requires min A to CGA for bed mobility. Goals Bed Mobility Goal Independent Transfer Goal Independent Gait Goal Independent Four Wheel Walker Gait Distance 100 feet Frequency of Treatment Frequency Of Treatment Twice a Day Treatment Plan Physical Therapy Treatment Plan Bed Mobility Training Transfer Training Gait Training Therapeutic Exercise Balance Retraining Discharge Planning Hot or Cold Pack Recommendations To Nursing Amount of Assist Needed 1 Person Assist Discharge Recommendations PT Discharge Recommendations SNF Rehab
[2018-01-05 16:58] LABS: Osmolality, Serum 271 mosm/kg (260-310)
[2018-01-05] MEDS: METOPROLOL ER 25 MG TABLET PO (17:06)
[2018-01-05 18:20] LABS: Blood Urea Nitrogen 16 mg/dL (7-17); Calcium 9.3 mg/dL (8.4-10.2); Carbon Dioxide 30 mmol/L (22-32); Chloride 89 mmol/L (98-107); Estimated Glomerular Filt Rate > 60.0 mL/min (>60); Glucose 89 mg/dL (80-110); HEMOLYSIS < 15 (0-50); Potassium 4.9 mmol/L (3.4-5.1); Sodium 125 mmol/L (137-145)
--- NOTE | 2018-01-05 23:54 | PC.NURSE ---
Addendum entered by Marissa Almanza R.N. 01/06/18 06:38: BP rechecked and now is 153/74 Original Note: Addendum entered by Marissa Almanza R.N. 01/06/18 05:57: Patient medicated earlier with Oxycodone for complaint of 8/10 pain and has been sleeping since. Difficult to arouse this morning and falls back asleep easily. BP elevated at 185/101 although patient quite lethargic. Did get up to bathroom with walker and 2 assist for safety due to drowsiness and was slightly unsteady on feet. Back to bed and alarms on. Patient denies any pain and states she slept well. Original Note: Patient is oriented except to year (stated it is 1980). Breath sounds diminished but CTA with RA sat of 99%. HR irregular but has hx of afib. BP after being up to bathroom is elevated at 161/103 so will allow her to rest and then recheck. Denies nausea. BT present and abdomen is soft. Has chronic urgency but denies dysuria, frequency or incontinence. Wearing TLSO brace and states back pain is currently only 1/10. Is able to turn herself. Is impulsive and does not call for staff assist when getting out of bed despite reminders. Is at high risk for falls so bed alarm is activated. Currently on fluid restriction.
[2018-01-06] MEDS: OXYCODONE IR 5 MG TABLET 10 MG PO (01:01)
[2018-01-06 05:45] VITALS: BP 185/101; PULSE 89; RESP 15; TEMP 36.3; O2SAT 93
[2018-01-06] MEDS: LEVOTHYROXINE 112 MCG TABLET PO (05:45)
[2018-01-06 06:37] VITALS: BP 153/74; PULSE 82
--- NOTE | 2018-01-06 08:02 | PM.PN.1 ---
Subjective Date Patient Seen: 01/06/18 Time Patient Seen: 08:31 Interval history: Patient is laying in bed comfortably with TLSO brace. She denies any fever, chills or distress. Patient is eager to go home. Patient pain is minimal and well tolerated. Exam Vital Signs (past 8 hours): - 01/06/18 05:45 01/06/18 06:37 Temperature 97.4 F L Pulse Rate 89 82 Respiratory Rate 15 Blood Pressure 185/101 H 153/74 H Pulse Oximetry 93 Oxygen Delivery Method Room Air Oxygen Flow Rate 0 Narrative Exam Narrative: Patient is well developed. She is currently in a well fitting TLSO brace. Patient is AOx3. No sensory deficit noted. Tender to palpation over the spine. Objective Labs Result Diagrams: 01/02/18 05:35 01/05/18 17:15 Labs: Laboratory Results - last 24 hr 01/03/18 01/05/18 16:35 17:15 Sodium 125 L Potassium 4.9 Chloride 89 L Carbon Dioxide 30 BUN 16 Creatinine 0.80 Estimated GFR > 60.0 BUN/Creatinine Ratio 20.0 Glucose 89 Serum Osmolality 271 Calcium 9.3 Assessment & Plan Plan: Assessment/Plan Narrative: Surgeon at [facility] recommended conservative treatment with a brace as well as outpatient follow-up at [facility]. Discharge when stable per hospitalist.
--- NOTE | 2018-01-06 08:38 | P.PN_ITS ---
Subjective Date Patient Seen: 01/06/18 Time Patient Seen: 08:31 Interval history: Patient is laying in bed comfortably with TLSO brace. She denies any fever, chills or distress. Patient is eager to go home. Patient pain is minimal and well tolerated. Exam Vital Signs (past 8 hours): - 01/06/18 05:45 01/06/18 06:37 Temperature 97.4 F L Pulse Rate 89 82 Respiratory Rate 15 Blood Pressure 185/101 H 153/74 H Pulse Oximetry 93 Oxygen Delivery Method Room Air Oxygen Flow Rate 0 Narrative Exam Narrative: Patient is well developed. She is currently in a well fitting TLSO brace. Patient is AOx3. No sensory deficit noted. Tender to palpation over the spine. Objective Labs Result Diagrams: 01/02/18 05:35 01/05/18 17:15 Labs: Laboratory Results - last 24 hr 01/03/18 01/05/18 16:35 17:15 Sodium 125 L Potassium 4.9 Chloride 89 L Carbon Dioxide 30 BUN 16 Creatinine 0.80 Estimated GFR > 60.0 BUN/Creatinine Ratio 20.0 Glucose 89 Serum Osmolality 271 Calcium 9.3 Assessment & Plan Plan: Assessment/Plan Narrative: Surgeon at [facility] recommended conservative treatment with a brace as well as outpatient follow-up at [facility]. Discharge when stable per hospitalist.
[2018-01-06 09:00] VITALS: BP 171/93; RESP 16; TEMP 36.2
[2018-01-06] MEDS: CALCIUM CARBONATE 500 MG TAB 1000 MG PO (09:02)
[2018-01-06] MEDS: TELMISARTAN 40 MG TABLET 80 MG PO (09:02)
[2018-01-06] MEDS: CHOLECALCIFEROL (VITAMIN D3) 400 UNIT TABLET 800 UNIT PO (09:02)
[2018-01-06] MEDS: METOPROLOL ER 25 MG TABLET 50 MG PO (09:02)
--- NOTE | 2018-01-06 10:29 | OT.IP.TRT ---
Current Diagnoses Dehydration (01/02/18) Hypo-osmolality and hyponatremia (01/02/18) Encephalopathy, unspecified (01/02/18) Essential (primary) hypertension (01/02/18) Diarrhea, unspecified (01/02/18) Wedge compression fracture of T7-T8 vertebra, initial encounter for closed fracture (01/02/18) Wedge compression fracture of T11-T12 vertebra, initial encounter for closed fracture (01/02/18) Occupational Therapy Treatment Note M2 OT-IP Current Condition Start: 01/03/18 14:29 Freq: Status: Active Protocol: Document 01/04/18 15:08 PJM (Rec: 01/04/18 15:30 PJM [id number]) Occupational Therapy Current Condition Current Condition Evaluation Date 01/04/18 Treatment Diagnosis decreased cognition, self care , mobility due to T7/T11 compression fx's Diagnosis Onset Date 01/03/18 Post Operative Precautions Lumbar Precautions Log Roll No Twisting Limit Bending Other Precautions TLSO brace on at all times; Gait belt above area of compression fractures M3 OT- IP Subjective and Pain Start: 01/03/18 14:29 Freq: Status: Active Protocol: Document 01/06/18 10:29 PJM (Rec: 01/06/18 13:38 PJM [id number]) OT- Subjective Occupational Therapy Visit Type Type Treatment Note Visit Start Time 10:00 Visit Stop Time 10:29 Total Visit Minutes 29 Notes Pt drowsy today. RN reports pt had alot of pain medicaiton overnight. OT Pain Assessment Pain When Pain Assessed After Treatment Pain Present Pain Present Pain Reported Location Lower Back Intensity 5 Scale Used Numeric (1 - 10) Description Aching M4 OT- IP ADL's Start: 01/03/18 14:29 Freq: Status: Active Protocol: Document 01/06/18 10:29 PJM (Rec: 01/06/18 13:38 PJM [id number]) OT ADL-Grooming General Evaluation Grooming Ability Minimal Assistance Areas Needing Assistance Retrieving/Set-up of Grooming Items Combing/Brushing Hair Face Washing Glasses Comments OT Grooming Comments Pt stood at sink. Mod cues to sequence tasks and ensure completion. Pt needs mod cues to avoid forward bending and to remember to use FWW when leaving sink area. OT ADL-Oral Care General Eval Oral Care Ability Minimal Assistance Devices Oral Care Devices Toothbrush OT ADL-Dressing General Eval Lower Body Dressing Ability Minimal Assistance Areas Needing Assistance Retrieving/Set-up of Clothing Socks Comments OT Dressing Comments Pt able o remove socks with insole reinforcer with SBA and mod cues for tool use. Pt able to don socks by crossing foot over opposite knee with no c/o increased back pain. Mcts. M7 OT- IP Mobility and Balance Start: 01/03/18 14:29 Freq: Status: Active Protocol: Document 01/06/18 10:29 PJM (Rec: 01/06/18 13:38 PJM [id number]) OT- Bed Mobility Assessment Rolling Type of Rolling Log Rolling Roll to Right Level of Assistance Minimal Assistance Supine to Sit Supine to Sit Assist Standby Assistance Scooting Scooting to Edge of Bed Standby Assistance OT-Transfer Assessment Sit to and From Stand Sit to and from Stand Contact Guard Assistance Transfers Transfer Ability Contact Guard Assistance Technique Transfer Destination Chair Transfer Technique Stand Step Pivot Devices Transfer Assistive Devices Gait Belt Front Wheeled Walker Comments Mobility Comments Pt log rolled flat in bed today. Heavy use of R bedrail. Pt states she ahs bedrail at home. No family here to confirm. OT- Gait Assessment Gait Gait Assistance Required: Contact Guard Assist Distance (Feet) (feet) 20 Assistive Devices Assistive Device Gait Belt Front Wheeled Walker OT- Balance Assessment Sitting Balance and Reactions Static Sitting Balance Ability Good Dynamic Sitting Balance Ability Good Standing Balance and Reactions Static Standing Balance Ability Good Dynamic Standing Balance Ability Fair M9 OT- IP Assessment and Plan Start: 01/03/18 14:29 Freq: Status: Active Protocol: Document 01/06/18 10:29 PJM (Rec: 01/06/18 13:38 PJM [id number]) OT Summary Assessment and Plan Summary OT Impairments Pain Functional Cognition Functional Mobility Grooming Dressing Toileting Bathing Toilet Transfers Shower Transfers Progress Towards Goals Progressing Toward Goals Assessment Summary Pt improving with mobility but functional cognition and safety awareness remain significantly impaired. Pt will need close 24 hr supervision for safety after d /c. Per chart notes, d/c plan is now home. DaughterDelmy , not here for training this session. Will provide family education prior to discharge. Recommend home health OT/PT. Goals Self-Feeding Goal Independent Grooming Goal Standby Assistance Dressing Goal Minimal Assistance Toileting Goal Standby Assistance Bathing Goal Moderate Assistance Toilet Transfer Goal Standby Assistance Shower Transfer Goal Contact Guard Assistance Patient/Caregiver Education Goal Demonstrate Post-Op Precautions Caregiver Independent Assisting Patient Frequency of Treatment Frequency Of Treatment Once a Day Treatment Plan OT Treatment Plan ADL Training Functional Cognition Training Functional Mobility Patient/Family Education Discharge Planning Discharge Recommendations OT Discharge Recommendations Home with 24/ Assist Home Health Home Equipment Needs BSC over toilet, bed rail, pt has insole reinforcer and shower seat
--- NOTE | 2018-01-06 11:42 | PT.IPTN ---
Current Diagnoses Dehydration (01/02/18) Hypo-osmolality and hyponatremia (01/02/18) Encephalopathy, unspecified (01/02/18) Essential (primary) hypertension (01/02/18) Diarrhea, unspecified (01/02/18) Wedge compression fracture of T7-T8 vertebra, initial encounter for closed fracture (01/02/18) Wedge compression fracture of T11-T12 vertebra, initial encounter for closed fracture (01/02/18) Physical Therapy Treatment Note M2 PT-IP Current Condition Start: 01/03/18 08:31 Freq: NEEDED Status: Active Protocol: Document 01/03/18 09:00 LRN (Rec: 01/03/18 14:06 LRN [id number]) Physical Therapy Current Condition Current Condition Evaluation Date 01/03/18 Treatment Diagnosis UTI, Compression fractures: T7 , T11 Onset Date Admit: 01/02/18 Precautions Lumbar Precautions Log Roll No Twisting Limit Bending Brace Probable need of lumbar soft support brace. Other Precautions Gait belt above area of compression fractures M3 PT-IP Subjective Start: 01/03/18 08:31 Freq: NEEDED Status: Active Protocol: Document 01/06/18 11:35 GGD (Rec: 01/06/18 11:42 GGD [email or web address]) Subjective Physical Therapy Visit Type Type Treatment Note Visit Start Time 11:00 Visit Stop Time 11:25 Total Visit Minutes 25 Number of CITY MANAGER Visits 1 Physical Therapy Visit Comments Patient Comments Pt states she would like to go back to bed and hopes to go home today. Therapy Pain Assessment Pain When Pain Assessed At Rest Pain Present Pain Present Pain Reported Location Lower Back Intensity 2 Scale Used Numeric (1 - 10) M4 PT-IP Mobility and Gait Start: 01/03/18 08:31 Freq: NEEDED Status: Active Protocol: Document 01/06/18 11:35 GGD (Rec: 01/06/18 11:42 GGD [id number]) PT-Bed Mobility Assessment Rolling Type of Rolling Log Rolling Level of Assist Minimal Assistance 1 Person Assistance Sit to Supine Sit to Supine Minimal Assistance 1 Person Assistance Bedrails PT-Transfer Assessment Sit to and From Stand Sit to and from Stand Contact Guard Assistance Use of Upper Extremities Equipment Transfer Assistive Device Gait Belt Front Wheeled Walker Transfers Transfer Destination Bed Gait Assessment Gait Gait Assistance Required: Contact Guard Assist Distance (Feet) (feet) 30 Assistive Devices Assistive Device Gait Belt Front Wheeled Walker Gait Deviations General Gait Pattern Decreased Stride Length Decreased Feet Clearance Factors Limiting Gait Function Factors Limiting Gait Function Decreased Activity Tolerance Decreased Strength Limited Range of Motion Pain Poor Balance Comments Gait Comments pt need mod cues for log roll and safety with gait. M5 PT-IP Objective Assessments Start: 01/03/18 08:31 Freq: NEEDED Status: Active Protocol: Document 01/03/18 09:00 LRN (Rec: 01/03/18 14:06 LRN [id number]) Orientation Orientation/Cognition Level of Alertness Lethargic Orientation Name Place Language Function Ability No Deficits Noted Safety Awareness Decreased Safety Awareness Comments Lethargy possibly from meds causing sleepiness. Gross Range of Motion Lower Extremity ROM Assessment Within Functional Limits Strength Lower Extremity Strength Assessment Within Functional Limits M6 PT-IP Treatment Start: 01/03/18 08:31 Freq: NEEDED Status: Active Protocol: Document 01/05/18 15:35 MDD (Rec: 01/05/18 15:51 MDD [id number]) Physical Therapy Treatment Other Treatments Other Treatment Performed Practice with log roll right. Cueing and CGA to min A from supine to sitting. CGA for sit to stand and with gait. Pt able to perform ron care independently with CGA from therapist today. Pt with difficulty performing log roll back into bed despite cues. M7 PT-IP Assessment and Plan Start: 01/03/18 08:31 Freq: NEEDED Status: Active Protocol: Document 01/06/18 11:35 GGD (Rec: 01/06/18 11:42 GGD [id number]) PT Summary Assessment and Plan Summary Assessment Summary Pt need cues with all mobility . She was unsteady gait, but no LOB. She did need cues for safety with transfers. She need assist with bed mobility, but improving slowly. Frequency of Treatment Frequency Of Treatment Twice a Day Treatment Plan Physical Therapy Treatment Plan Bed Mobility Training Transfer Training Gait Training Therapeutic Exercise Balance Retraining Discharge Planning Hot or Cold Pack Recommendations To Nursing Amount of Assist Needed 1 Person Assist Discharge Recommendations PT Discharge Recommendations SNF Rehab
--- NOTE | 2018-01-06 12:33 | CM.DPC ---
DCP Cont: Hospitalist is to discharge patient today. Patient is to return home, and has requested [facility]. Spoke to daughter, Delmy, who is aware of discharge and home health services, and son is picking up patient today. Spoke to nurse Court, stated that P.T/O.T, will be coming in to see patient to do some teaching for son. Called [facility], and confirmed that they will be out to see patient tomorrow. Faxed over orders, nursing, O.T, P.T. orders as well as face to face to [facility]. P: Patient is to go home today, will have home health in the home tomorrow. Kezia Maria RN/Folding Machine Setter
--- NOTE | 2018-01-06 14:20 | PT.IPTN ---
Current Diagnoses Dehydration (01/02/18) Hypo-osmolality and hyponatremia (01/02/18) Encephalopathy, unspecified (01/02/18) Essential (primary) hypertension (01/02/18) Diarrhea, unspecified (01/02/18) Wedge compression fracture of T7-T8 vertebra, initial encounter for closed fracture (01/02/18) Wedge compression fracture of T11-T12 vertebra, initial encounter for closed fracture (01/02/18) Physical Therapy Treatment Note M2 PT-IP Current Condition Start: 01/03/18 08:31 Freq: NEEDED Status: Active Protocol: Document 01/03/18 09:00 LRN (Rec: 01/03/18 14:06 LRN [id number]) Physical Therapy Current Condition Current Condition Evaluation Date 01/03/18 Treatment Diagnosis UTI, Compression fractures: T7 , T11 Onset Date Admit: 01/02/18 Precautions Lumbar Precautions Log Roll No Twisting Limit Bending Brace Probable need of lumbar soft support brace. Other Precautions Gait belt above area of compression fractures M3 PT-IP Subjective Start: 01/03/18 08:31 Freq: NEEDED Status: Active Protocol: Document 01/06/18 14:00 GGD (Rec: 01/06/18 14:20 GGD [id number]) Subjective Physical Therapy Visit Type Type Treatment Note Visit Start Time 13:30 Visit Stop Time 14:00 Total Visit Minutes 30 Number of SUGAR GRINDER Visits 2 Physical Therapy Visit Comments Patient Comments Pt willing to get up. Therapy Pain Assessment Pain When Pain Assessed At Rest Pain Present Pain Present Denied Pain M4 PT-IP Mobility and Gait Start: 01/03/18 08:31 Freq: NEEDED Status: Active Protocol: Document 01/06/18 14:00 GGD (Rec: 01/06/18 14:20 GGD [id number]) PT-Bed Mobility Assessment Rolling Type of Rolling Log Rolling Level of Assist Minimal Assistance 1 Person Assistance Supine to Sit Supine to Sit Minimal Assistance 1 Person Assistance Sit to Supine Sit to Supine Contact Guard Assistance 1 Person Assistance Scooting Scooting to Edge of Bed Standby Assistance PT-Transfer Assessment Sit to and From Stand Sit to and from Stand Contact Guard Assistance Use of Upper Extremities Equipment Transfer Assistive Device Gait Belt 4 Wheeled Walker Orthotic/Prosthetic Devices or Brace: Yes Transfers Transfer Destination Chair Gait Assessment Gait Gait Assistance Required: Contact Guard Assist Distance (Feet) (feet) 30 Assistive Devices Assistive Device Gait Belt 4 Wheeled Walker Gait Deviations General Gait Pattern Decreased Stride Length Decreased Feet Clearance Factors Limiting Gait Function Factors Limiting Gait Function Decreased Activity Tolerance Decreased Strength Limited Range of Motion Pain Poor Balance Comments Gait Comments Family trained on log roll for bed mobility. She needs cues for safety. Stair Climbing Assessment Evaluation Level of Assist On Stairs Contact Guard Assistance Devices Stair Climbing Assistive Devices Four Wheel Walker Technique/Endurance Stair Climbing Direction Ascend and Descend Stair Climbing Technique Step to Step Number of Steps Climbed 1 Query Text: Stair Climbing Set # Repetitions (reps) 1 Comments Stair Climbing Comments Pt need assist with lifting 4WW. M5 PT-IP Objective Assessments Start: 01/03/18 08:31 Freq: NEEDED Status: Active Protocol: Document 01/03/18 09:00 LRN (Rec: 01/03/18 14:06 LRN [id number]) Orientation Orientation/Cognition Level of Alertness Lethargic Orientation Name Place Language Function Ability No Deficits Noted Safety Awareness Decreased Safety Awareness Comments Lethargy possibly from meds causing sleepiness. Gross Range of Motion Lower Extremity ROM Assessment Within Functional Limits Strength Lower Extremity Strength Assessment Within Functional Limits M6 PT-IP Treatment Start: 01/03/18 08:31 Freq: NEEDED Status: Active Protocol: Document 01/05/18 15:35 MDD (Rec: 01/05/18 15:51 MDD [id number]) Physical Therapy Treatment Other Treatments Other Treatment Performed Practice with log roll right. Cueing and CGA to min A from supine to sitting. CGA for sit to stand and with gait. Pt able to perform ron care independently with CGA from therapist today. Pt with difficulty performing log roll back into bed despite cues. M7 PT-IP Assessment and Plan Start: 01/03/18 08:31 Freq: NEEDED Status: Active Protocol: Document 01/06/18 14:00 GGD (Rec: 01/06/18 14:20 GGD [id number]) PT Summary Assessment and Plan Summary Assessment Summary Pt need assist with bed mobility and cues with all mobility. Her son was able to assist with bed mobility. Frequency of Treatment Frequency Of Treatment Twice a Day Treatment Plan Physical Therapy Treatment Plan Bed Mobility Training Transfer Training Gait Training Therapeutic Exercise Balance Retraining Discharge Planning Hot or Cold Pack Recommendations To Nursing Amount of Assist Needed 1 Person Assist Discharge Recommendations PT Discharge Recommendations Home with 21/12 Assist Home Health
--- NOTE | 2018-01-06 14:45 | OT.IP.TRT ---
Current Diagnoses Dehydration (01/02/18) Hypo-osmolality and hyponatremia (01/02/18) Encephalopathy, unspecified (01/02/18) Essential (primary) hypertension (01/02/18) Diarrhea, unspecified (01/02/18) Wedge compression fracture of T7-T8 vertebra, initial encounter for closed fracture (01/02/18) Wedge compression fracture of T11-T12 vertebra, initial encounter for closed fracture (01/02/18) Occupational Therapy Treatment Note M2 OT-IP Current Condition Start: 01/03/18 14:29 Freq: Status: Active Protocol: Document 01/04/18 15:08 PJM (Rec: 01/04/18 15:30 PJM [id number]) Occupational Therapy Current Condition Current Condition Evaluation Date 01/04/18 Treatment Diagnosis decreased cognition, self care , mobility due to T7/T11 compression fx's Diagnosis Onset Date 01/03/18 Post Operative Precautions Lumbar Precautions Log Roll No Twisting Limit Bending Other Precautions TLSO brace on at all times; Gait belt above area of compression fractures M3 OT- IP Subjective and Pain Start: 01/03/18 14:29 Freq: Status: Active Protocol: Document 01/06/18 14:45 PJM (Rec: 01/06/18 15:30 PJM [id number]) OT- Subjective Occupational Therapy Visit Type Type Treatment Note Visit Start Time 14:25 Visit Stop Time 14:45 Total Visit Minutes 20 Notes DaughterCaty, here for education this session. Pt drowsy this session. OT Pain Assessment Pain When Pain Assessed After Treatment Pain Present Pain Present Pain Reported Location Lower Back Intensity 6 Scale Used Numeric (1 - 10) Description Aching M4 OT- IP ADL's Start: 01/03/18 14:29 Freq: Status: Active Protocol: Document 01/06/18 14:45 PJM (Rec: 01/06/18 15:30 PJM [id number]) OT ADL-Dressing General Eval Upper Body Dressing Ability Moderate Assistance Total Assistance Lower Body Dressing Ability Moderate Assistance Comments OT Dressing Comments Pt mod assist with pullover shirt. Total assist with back brace. Daughter able to remove and apply brace with min cues . Pt mod assist to don PJ pants to get over feet. Pt able to tie drawstring independently. Total assist with long tight socks brought from home this session due to fatigue. SBA to don slip on slippers. OT ADL-Bathing Devices Bathing Equipment Long Handled Sponge or [place] Shower Chair without Arms Comments OT Bathing Comments Provided education re: leaving back brace on until pt seat on shower seat and close supervision while brace off to prevent bending and twisting during shower. Pt has long bath sponge. Daughter to assist with washing, drying PRN at home. . M7 OT- IP Mobility and Balance Start: 01/03/18 14:29 Freq: Status: Active Protocol: Document 01/06/18 14:45 PJM (Rec: 01/06/18 15:32 PJ [id number]) OT-Transfer Assessment Sit to and From Stand Sit to and from Stand Contact Guard Assistance Technique Transfer Destination Car Chair Shower Stall Transfer Technique Stand Step Pivot Devices Transfer Assistive Devices Gait Belt Front Wheeled Walker Comments Mobility Comments Provided education re: technique for shower stall and car transfers and pt's daughterDelmy, verbalizes understanding. OT- Balance Assessment Sitting Balance and Reactions Static Sitting Balance Ability Good Dynamic Sitting Balance Ability Fair Standing Balance and Reactions Static Standing Balance Ability Good Dynamic Standing Balance Ability Fair M9 OT- IP Assessment and Plan Start: 01/03/18 14:29 Freq: Status: Active Protocol: Document 01/06/18 14:45 PJM (Rec: 01/06/18 15:30 PJ [id number]) OT Summary Assessment and Plan Summary Progress Towards Goals Slow Progress due to Pain Slow Progress due to Medical Issues Assessment Summary All OT education completed with pt's daughterDelmy, regarding dressing, donning/ doffing back brace, showering and car transfers. Emphasized need for close 24 hr supervision for safety at home , including when pt gets up to go to bathroom at night. Recommend family obtain chair/ bed alarm for pt due to her confusion. Recommend HH OT/PT at discharge. Frequency of Treatment Frequency Of Treatment Discharge Discharge Recommendations OT Discharge Recommendations Home with 24/7 Assist Home Health Home Equipment Needs chair/bed alarm
--- NOTE | 2018-01-06 17:14 | PM.DS.1 ---
History of Present Illness Chief complaint: Blood in urine Narrative: THE PATIENT IS 82-YEAR-OLD FEMALE WHO PRESENTED TO THE ED FOR HEMATURIA. SHE HAD ACTUALLY PRESENTED TO HER PRIMARY CARE OFFICE ON 12/24/2017 FOR PROBLEMS WITH HEMATURIA. URINALYSIS WAS OBTAINED REVEALED HEMATURIA AND POSITIVE NITRATE AND LEUKOCYTE ESTERASE REACTION. URINE CULTURE WAS OBTAINED AND IT DOES NOT APPEAR THAT SHE WAS PLACED ON ANTIBIOTICS. BECAUSE OF HER PAIN ON 12/30/2017 THORACIC AND LUMBAR X-RAYS WERE OBTAINED WITH A THORACIC FILMS REVEALING A CHRONIC APPEARING T7 WITH NO MENTION OF THE T7 COMPRESSION FRACTION. SHE HAD ONGOING BACK PAIN AND HEMATURIA. THEREFORE THE PROBLEM PERSISTED SHE PRESENTED TO THE ED. SHE COMPLAINED OF ONGOING PROBLEMS WITH BACK PAIN AFTER HAVING A FALL APPROXIMATELY A WEEK AGO. SHE HAS HAD ADDITIONAL FALLS DURING THIS TIME FOR TOTAL OF 3 IN PAST WEEK. BECAUSE OF HER COMPLAINTS OF BACK PAIN AND HER FALLS CT HEAD WAS OBTAINED WITHOUT ANY ACUTE INTRACRANIAL PROCESS. CT ABDOMEN AND PELVIS WAS ALSO OBTAINED NO ABNORMALITIES OF THE KIDNEYS WERE NOTED AND A CT SCAN REVEALED A T11 COMPRESSION FRACTURE. SHE WAS THEREFORE ADMITTED FOR PAIN MANAGEMENT AND TREATMENT OF HER URINARY TRACT INFECTION Discharge Providers Date of admission: 01/02/18 02:24 Consults: 01/02/18 04:18 Consult to Physical Therapy Evaluate & Treat Comment: Physician Instructions: Evaluate and Treat 01/02/18 04:19 Consult to Occupational Therapy Evaluate & Treat Comment: Physician Instructions: Evaluate and treat 01/06/18 11:50 Consult to Home Health Routine Comment: Reason For Exam: pain, compression fracture, needs PT/OT/tavern operator provider: Aurora Grewal MD Summary Discharge Diagnosis: Thoracic compression fracture hematuria osteoporosis hyponatremia hypertension Hospital Course: patient was admitted for back pain and hematuria. She was found to have a thoracic compression fracture on admission. Her hematuria was attributed to her fall and use of xeralto. Orthopedic consultation was obtained. They recommended a TLSO brace for the patient while she is upright and mobile. Her pain was difficult to control initially. Ultimately she achieved adequate analgesia. She was seen by PT/OT and arrangements were made for her to discharge home with home health. Status at Discharge Functional status at discharge: independent ambulation Overall status at discharge: patient is not back to baseline Time Spent with Patient Less than 30 minutes Exam Vital Signs (past 8 hours): Oxygen Delivery Method Room Air Oxygen Flow Rate 0 Objective Labs Result Diagrams: 01/02/18 05:35 08/08/18 17:15 Labs: Laboratory Results - last 24 hr 01/05/18 17:15 Sodium 125 L Potassium 4.9 Chloride 89 L Carbon Dioxide 30 BUN 16 Creatinine 0.80 Estimated GFR > 60.0 BUN/Creatinine Ratio 20.0 Glucose 89 Calcium 9.3 Discharge Plan Discharge Plan Patient Disposition: Home Health Service Discharge comment: Follow up with PCP in one week Provider Discharge Instructions Diet: Low-sodium Diet comment: Needs 1200 cc/ day free water restriction for low sodium Activity: as tolerated, Patient to wear TLSO brace when out of bed. Brace can be removed when she is in bed Discharge Data Attending Provider: Maninder Simon Admit Date/Time: 01/02/18 02:24 Discharges patient from system. Discharge Date/Time: 01/06/18 15:00
== END 2018-01-06 15:00 | disposition home health service (06) | DRG 552 ==
LOC: ED 01-02 02:13 → AC 01-02 14:35
PROVIDERS: Internal Medicine; Admitting Provider Internal Medicine; Emergency Provider Emergency Medicine; Visit Provider Internal Medicine
DX: S22.060A Wedge compression fracture of T7-T8 vertebra, initial encounter for closed fracture (principal); N39.0 Urinary tract infection, site not specified; E87.1 Hypo-osmolality and hyponatremia; S22.080A Wedge compression fracture of T11-T12 vertebra, initial encounter for closed fracture; W18.30XA Fall on same level, unspecified, initial encounter; Y92.009 Unspecified place in unspecified non-institutional (private) residence as the place of occurrence of the external cause; R31.0 Gross hematuria; I48.91 Unspecified atrial fibrillation; Z79.01 Long term (current) use of anticoagulants; E03.9 Hypothyroidism, unspecified; I10 Essential (primary) hypertension; Z87.891 Personal history of nicotine dependence; B95.7 Other staphylococcus as the cause of diseases classified elsewhere; M48.04 Spinal stenosis, thoracic region; E86.0 Dehydration; R19.7 Diarrhea, unspecified; M81.0 Age-related osteoporosis without current pathological fracture; R29.6 Repeated falls
CPT/HCPCS: 36415; 36591; 70450; 72072; 72100; 72128; 72131; 74176; 80048; 80053; 81001; 83930; 85025; 85610; 85730; 87086; 93005; 93010; 96374; 96376; 97116; 97163; 97165; 97530; 97535; 99283; 99284; J2270

== ENCOUNTER → 2018-01-28 10:06 | Outpatient (CLI) | payer MEDICARE, OTHER, SELFPAY ==
[2018-01-02 03:25] VITALS: BMI 21.6
== END ==
PROVIDERS: Visit Provider Internal Medicine
DX: M81.0 Age-related osteoporosis without current pathological fracture (principal); Z78.0 Asymptomatic menopausal state; E07.9 Disorder of thyroid, unspecified; Z87.891 Personal history of nicotine dependence
CPT/HCPCS: 77080

== ENCOUNTER 2018-02-05 05:43 | Emergency (ER) | payer MEDICARE, OTHER, SELFPAY ==
[2018-01-02 03:25] VITALS: BMI 21.6
[2018-02-05 05:45] VITALS: BP 144/102; PULSE 88; RESP 20; TEMP 37.1; O2SAT 98; BMI 20.5
--- NOTE | 2018-02-05 05:47 | ED.FALL ---
HPI - Fall <Salvador Foster MD - Last Filed: 02/05/18 18:26> General Chief Complaint: Trauma Stated Complaint: Syncopal Episode Time Seen by Provider: 02/05/18 05:46 Source: patient Mode of arrival: EMS Limitations: no limitations History of Present Illness HPI Narrative: The patient apparently collapsed in her hallway on the way to the bathroom early this morning, prior to arrival. She does not hurt. She can tell me she only remembers waking up on the floor. She denies recent chest pain or dyspnea. She is on Xarelto for AFib. She denies palpitations. She denies recent illness. She has no GI complaints. Following the fall she has no headache, neck pain or back pain. Her extremities are not achy. She has no hip pain. Her daughter called EMS. With their assistance she was able get up. She completed a trip to the bathroom and then was escorted to living room. Paramedics tell me she became dizzy, her blood pressure seemed to drop while sitting in the living room. She became near syncopal. She is alert and in a good mood upon arrival here. She is asymptomatic at this time. Related Data Home Medications Medication Instructions Recorded Confirmed levothyroxine [Synthroid] 100 mcg PO QDAY #0 02/25/12 01/02/18 telmisartan [Micardis] 80 mg PO QDAY #0 02/25/12 01/02/18 metoprolol succinate [Toprol XL] 25 mg PO QPM #0 02/14/17 01/02/18 metoprolol succinate [Toprol XL] 50 mg PO QAM #0 02/14/17 01/02/18 rivaroxaban [Xarelto] 15 mg PO QPM 01/02/18 01/02/18 Previous Rx's Medication Instructions Recorded alendronate 70 mg PO We@0600 #20 tab 01/06/18 calcium carbonate 1,000 mg PO BID #60 tab 01/06/18 cholecalciferol (vitamin D3) 800 unit PO DAILY #60 tab 01/06/18 [Vitamin D3] oxycodone 10 mg PO Q3HR PRN #30 tab 01/06/18 sennosides [senna] 17.2 mg PO DAILY PRN #30 tab 01/06/18 Allergies Allergy/AdvReac Type Severity Reaction Status Date / Time atenolol [ATENOLOL] AdvReac Intermediate dizzyness Verified 12/24/17 09:44 Review of Systems <Salvador Foster MD - Last Filed: 02/05/18 18:26> Review of Systems All systems reviewed & are unremarkable except as noted in HPI and below Constitutional Denies body ache(s), Denies chills, Denies fever(s), Denies frequent falls, Denies headache(s), Denies lethargy and Denies weakness Eyes Denies change in vision and Reports other (No injuries.) ENT Ears, Nose, Mouth, and Throat: Denies facial pain and Denies headache(s) Cardiovascular Denies chest pain, Denies irregular heart rhythm, Reports lightheadedness, Denies palpitations, Denies dyspnea and Denies dyspnea on exertion Respiratory Denies cough, Denies dyspnea and Denies dyspnea on exertion Gastrointestinal Gastrointestinal: Denies abdominal pain, Denies change in bowel habits, Denies diarrhea, Denies nausea and Denies vomiting Genitourinary Reports hematuria and Denies dysuria Musculoskeletal Denies back pain, Denies arthralgias, Denies muscle weakness, Denies numbness and Denies tingling Integumentary/Breasts Denies pruritus, Denies erythema, Denies rash and Denies wounds Neurologic Denies confusion, Denies frequent falls, Denies headache(s), Denies numbness, Denies tingling and Denies weakness Psychiatric Denies anxiety, Denies confusion and Denies depression Endocrine Denies palpitations Exam <Salvador Foster MD - Last Filed: 02/05/18 18:26> Initial Vital Signs Initial Vital Signs: Vital Signs Temperature 98.7 F 02/05/18 05:45 Pulse Rate 88 02/05/18 05:45 Respiratory Rate 20 02/05/18 05:45 Blood Pressure 144/102 H 02/05/18 05:45 Pulse Oximetry 98 02/05/18 05:45 Const General: cooperative, well developed and No acute distress Nutritional Appearance: well nourished Orientation: alert, awake, oriented x3 and not confused [place] Head: normal to inspection, normocephalic and atraumatic Ears: external ears normal and TM's normal bilaterally Nose: external nose normal and No nasal discharge Face and sinus: face symmetric Mouth: oral mucosae normal and moist mucous membranes Throat: posterior oropharynx normal and tonsils normal Eyes General: appearance normal, both eyes and all related structures Eyelids: eyelids normal Conjunctivae: conjunctivae normal Sclera: sclerae normal Pupils: PERRL EOM: EOM intact bilaterally Neck Neck: normal visual inspection, full ROM, supple and No lymphadenopathy Thyroid: thyroid normal Chest Chest: normal palpation of entire chest wall Resp Effort & Inspection: normal respiratory effort, able to speak in complete sentences, no respiratory distress and no use of accessory muscles Auscultation: clear to auscultation bilaterally, no rales, no rhonchi and no wheezes Cardio Rhythm: abnormal rhythm irregularly irregular Heart Sounds: no click, no gallops, no murmurs and no rubs Pulses: normal peripheral pulses GI Inspection: non-distended Palpation: soft, no hepatosplenomegaly, No guarding, No pulsatile mass and No tender Auscultation: normal bowel sounds Back/Spine/Pelvis Back: No back tenderness and No CVA tenderness Cervical Spine: cervical ROM normal Thoracic/Lumbar Spine: thoracic and lumbar spine normal to inspection Skin General: no rashes or lesions noted Neuro General: alert, oriented x3, gait normal and no focal motor deficits Speech: speech normal Extrem General: full ROM, no pedal edema, no calf tenderness and other (No hip tenderness. Upper and lower extremities are atraumatic.) <Brice Schultz DO - Last Filed: 02/05/18 09:21> Initial Vital Signs Initial Vital Signs: Vital Signs Temperature 98.7 F 02/05/18 05:45 Pulse Rate 88 02/05/18 05:45 Respiratory Rate 20 02/05/18 05:45 Blood Pressure 144/102 H 02/05/18 05:45 Pulse Oximetry 98 02/05/18 05:45 Course <Salvador Foster MD - Last Filed: 02/05/18 18:26> Orders Ordered: Discontinued Medications Sodium Chloride (Normal Saline 0.9%) 1,000 mls @ 150 mls/hr IV CONT REBEKAH Last Admin: 02/05/18 06:46 Dose: 150 mls/hr Vital Signs - 8 hr 02/05/18 05:45 02/05/18 06:04 02/05/18 06:16 Temperature 98.7 F Pulse Rate 88 84 89 Respiratory Rate 20 18 23 Blood Pressure 144/102 H Blood Pressure [Right Arm] 140/74 138/76 Pulse Oximetry 98 97 97 02/05/18 07:44 Temperature Pulse Rate 82 Respiratory Rate 24 Blood Pressure Blood Pressure [Right Arm] 147/81 H Pulse Oximetry 100 <Brice Schultz DO - Last Filed: 02/05/18 09:21> Orders Ordered: Discontinued Medications Sodium Chloride (Normal Saline 0.9%) 1,000 mls @ 150 mls/hr IV CONT REBEKAH Last Admin: 02/05/18 06:46 Dose: 150 mls/hr Vital Signs - 8 hr 02/05/18 05:45 02/05/18 06:04 02/05/18 06:16 Temperature 98.7 F Pulse Rate 88 84 89 Respiratory Rate 20 18 23 Blood Pressure 144/102 H Blood Pressure [Right Arm] 140/74 138/76 Pulse Oximetry 98 97 97 02/05/18 07:44 Temperature Pulse Rate 82 Respiratory Rate 24 Blood Pressure Blood Pressure [Right Arm] 147/81 H Pulse Oximetry 100 MDM - Fall <Salvador Foster MD - Last Filed: 02/05/18 18:26> Lab Data Result diagrams: 02/05/18 06:00 02/05/18 06:00 Lab Results 02/05/18 02/05/18 02/05/18 Range/Units 06:00 06:00 06:00 WBC 7.9 (4.5-11.0) X10^3/uL RBC 3.92 L (4.0-5.2) X10^6/uL Hgb 12.4 (12.0-16.0) g/dL Hct 36.1 (36-46) % MCV 92.0 (80-100) fL MCH 31.6 (26-34) PG MCHC 34.3 (30-36) % RDW 13.1 (11.6-14.8) % Plt Count 242 (150-400) X10^3/uL Neut % (Auto) 63.0 (50-75) % Lymph % (Auto) 28.5 (25-40) % [place] % (Auto) 7.0 (3-14) % Eos % (Auto) 0.9 L (2-4) % Baso % (Auto) 0.6 (0-2) % Neut # (Auto) 5000 (1144-2173) /uL PT 21.4 H (10.1-12.7) SECONDS INR 1.9 H (0.9-1.3) APTT 32 D (26.4-36.2) SECONDS Sodium 134 L (137-145) mmol/L Potassium 3.6 (3.4-5.1) mmol/L Chloride 97 L (98-107) mmol/L Carbon Dioxide 28 (22-32) mmol/L BUN 29 H (7-17) mg/dL Creatinine 1.00 (0.52-1.04) mg/dL Estimated GFR 53.3 L (>60) mL/min BUN/Creatinine Ratio 29.0 H (6-22) Glucose 104 (80-110) mg/dL Calcium 9.9 (8.4-10.2) mg/dL Total Bilirubin 0.6 (0.2-1.3) mg/dL AST 27 (14-36) IU/L ALT 27 (9-52) IU/L Alkaline Phosphatase 90 (38-126) U/L Total Creatine Kinase 32 (30-135) U/L Troponin I < 0.012 (0.01-0.034) ng/mL Total Protein 6.7 (6.3-8.2) g/dL Albumin 4.0 (3.5-5.0) g/dL Globulin 2.7 (1.7-4.1) g/dL Albumin/Globulin Ratio 1.5 (1.0-2.8) Urine Color Urine Appearance Urine pH (4.5-8.0) Ur Specific [place] (1.000-1.035) Urine Protein (Negative) Urine Glucose (UA) (Normal) g/dL Urine Ketones (NEGATIVE) Urine Occult Blood (Negative) Urine Nitrate (Negative) Urine Bilirubin (NEGATIVE) Urine Urobilinogen (0.2) E.U./dL Ur Leukocyte Esterase (NEGATIVE) Urine RBC (0-5/HPF) Urine WBC (0-5/HPF) Urine Bacteria (None) Ur Culture Indicated? Micro UA Comment 02/05/18 Range/Units 07:30 WBC (4.5-11.0) X10^3/uL RBC (4.0-5.2) X10^6/uL Hgb (12.0-16.0) g/dL Hct (36-46) % MCV (80-100) fL MCH (26-34) PG MCHC (30-36) % RDW (11.6-14.8) % Plt Count (150-400) X10^3/uL Neut % (Auto) (50-75) % Lymph % (Auto) (25-40) % [place] % (Auto) (3-14) % Eos % (Auto) (2-4) % Baso % (Auto) (0-2) % Neut # (Auto) (1452-4038) /uL PT (10.1-12.7) SECONDS INR (0.9-1.3) APTT (26.4-36.2) SECONDS Sodium (137-145) mmol/L Potassium (3.4-5.1) mmol/L Chloride (98-107) mmol/L Carbon Dioxide (22-32) mmol/L BUN (7-17) mg/dL Creatinine (0.52-1.04) mg/dL Estimated GFR (>60) mL/min BUN/Creatinine Ratio (6-22) Glucose (80-110) mg/dL Calcium (8.4-10.2) mg/dL Total Bilirubin (0.2-1.3) mg/dL AST (14-36) IU/L ALT (9-52) IU/L Alkaline Phosphatase (38-126) U/L Total Creatine Kinase (30-135) U/L Troponin I (0.01-0.034) ng/mL Total Protein (6.3-8.2) g/dL Albumin (3.5-5.0) g/dL Globulin (1.7-4.1) g/dL Albumin/Globulin Ratio (1.0-2.8) Urine Color Red Urine Appearance Cloudy Urine pH 6.0 (4.5-8.0) Ur Specific [place] 1.020 (1.000-1.035) Urine Protein 1+ H (Negative) Urine Glucose (UA) Negative (Normal) g/dL Urine Ketones Trace H (NEGATIVE) Urine Occult Blood 3+ H (Negative) Urine Nitrate Negative (Negative) Urine Bilirubin Negative (NEGATIVE) Urine Urobilinogen 0.2 (0.2) E.U./dL Ur Leukocyte Esterase 1+ H (NEGATIVE) Urine RBC >100/hpf H (0-5/HPF) Urine WBC 5-10/hpf H (0-5/HPF) Urine Bacteria None seen (None) Ur Culture Indicated? Specimen cultured Micro UA Comment Not Reportable Imaging Data Chest x-ray: My impression: No acute findings. CT scan - head: My impression: No CT evidence of hemorrhage, mass or infarct. The skull is intact. No acute findings. ECG Data Attestation: I personally reviewed and interpreted this ECG as follows: (AFib rate [address] T wave changes. Frequent PVCs. No acute ST elevation.) <Brice Schultz, - Last Filed: 02/05/18 09:21> Lab Data Lab Results 02/05/18 02/05/18 02/05/18 Range/Units 06:00 06:00 06:00 WBC 7.9 (4.5-11.0) X10^3/uL RBC 3.92 L (4.0-5.2) X10^6/uL Hgb 12.4 (12.0-16.0) g/dL Hct 36.1 (36-46) % MCV 92.0 (80-100) fL MCH 31.6 (26-34) PG MCHC 34.3 (30-36) % RDW 13.1 (11.6-14.8) % Plt Count 242 (150-400) X10^3/uL Neut % (Auto) 63.0 (50-75) % Lymph % (Auto) 28.5 (25-40) % [place] % (Auto) 7.0 (3-14) % Eos % (Auto) 0.9 L (2-4) % Baso % (Auto) 0.6 (0-2) % Neut # (Auto) 5000 (7258-6966) /uL PT 21.4 H (10.1-12.7) SECONDS INR 1.9 H (0.9-1.3) APTT 32 D (26.4-36.2) SECONDS Sodium 134 L (137-145) mmol/L Potassium 3.6 (3.4-5.1) mmol/L Chloride 97 L (98-107) mmol/L Carbon Dioxide 28 (22-32) mmol/L BUN 29 H (7-17) mg/dL Creatinine 1.00 (0.52-1.04) mg/dL Estimated GFR 53.3 L (>60) mL/min BUN/Creatinine Ratio 29.0 H (6-22) Glucose 104 (80-110) mg/dL Calcium 9.9 (8.4-10.2) mg/dL Total Bilirubin 0.6 (0.2-1.3) mg/dL AST 27 (14-36) IU/L ALT 27 (9-52) IU/L Alkaline Phosphatase 90 (38-126) U/L Total Creatine Kinase 32 (30-135) U/L Troponin I < 0.012 (0.01-0.034) ng/mL Total Protein 6.7 (6.3-8.2) g/dL Albumin 4.0 (3.5-5.0) g/dL Globulin 2.7 (1.7-4.1) g/dL Albumin/Globulin Ratio 1.5 (1.0-2.8) Urine Color Urine Appearance Urine pH (4.5-8.0) Ur Specific [place] (1.000-1.035) Urine Protein (Negative) Urine Glucose (UA) (Normal) g/dL Urine Ketones (NEGATIVE) Urine Occult Blood (Negative) Urine Nitrate (Negative) Urine Bilirubin (NEGATIVE) Urine Urobilinogen (0.2) E.U./dL Ur Leukocyte Esterase (NEGATIVE) Urine RBC (0-5/HPF) Urine WBC (0-5/HPF) Urine Bacteria (None) Ur Culture Indicated? Micro UA Comment 02/05/18 Range/Units 07:30 WBC (4.5-11.0) X10^3/uL RBC (4.0-5.2) X10^6/uL Hgb (12.0-16.0) g/dL Hct (36-46) % MCV (80-100) fL MCH (26-34) PG MCHC (30-36) % RDW (11.6-14.8) % Plt Count (150-400) X10^3/uL Neut % (Auto) (50-75) % Lymph % (Auto) (25-40) % [place] % (Auto) (3-14) % Eos % (Auto) (2-4) % Baso % (Auto) (0-2) % Neut # (Auto) (2994-8097) /uL PT (10.1-12.7) SECONDS INR (0.9-1.3) APTT (26.4-36.2) SECONDS Sodium (137-145) mmol/L Potassium (3.4-5.1) mmol/L Chloride (98-107) mmol/L Carbon Dioxide (22-32) mmol/L BUN (7-17) mg/dL Creatinine (0.52-1.04) mg/dL Estimated GFR (>60) mL/min BUN/Creatinine Ratio (6-22) Glucose (80-110) mg/dL Calcium (8.4-10.2) mg/dL Total Bilirubin (0.2-1.3) mg/dL AST (14-36) IU/L ALT (9-52) IU/L Alkaline Phosphatase (38-126) U/L Total Creatine Kinase (30-135) U/L Troponin I (0.01-0.034) ng/mL Total Protein (6.3-8.2) g/dL Albumin (3.5-5.0) g/dL Globulin (1.7-4.1) g/dL Albumin/Globulin Ratio (1.0-2.8) Urine Color Red Urine Appearance Cloudy Urine pH 6.0 (4.5-8.0) Ur Specific [place] 1.020 (1.000-1.035) Urine Protein 1+ H (Negative) Urine Glucose (UA) Negative (Normal) g/dL Urine Ketones Trace H (NEGATIVE) Urine Occult Blood 3+ H (Negative) Urine Nitrate Negative (Negative) Urine Bilirubin Negative (NEGATIVE) Urine Urobilinogen 0.2 (0.2) E.U./dL Ur Leukocyte Esterase 1+ H (NEGATIVE) Urine RBC >100/hpf H (0-5/HPF) Urine WBC 5-10/hpf H (0-5/HPF) Urine Bacteria None seen (None) Ur Culture Indicated? Specimen cultured Micro UA Comment Not Reportable Imaging Data Lumbar spine x-ray: Radiologist's impression: No acute process found MDM Narrative Medical decision making narrative: Received turned over from night provider. Reviewed patient's note and lab tests. When I perform my own physical exam patient was complaining of lower back pain. The patient's daughter was at bedside. There was some question whether not this lower back pain was new or old however given the setting that she did fall last night a lumbar spine x-ray was ordered. No acute fractures were noted. Urinalysis was obtained by in-and out catheter. Shows blood however no signs of infection. During her last admission here the patient was treated for urinary tract infection however the culture at that time was negative. I did discuss this with the patient and her daughter. The patient's daughter stated that there was some blood on the floor and also on the toilet last evening. The patient has no signs of active bleeding now. Patient denies any black-colored stools or dark-colored stools. She does have blood in her urine and I suspect that this is where the blood that the daughter found is coming from. During her last admission here there was discussion of hematuria at that time it was thought that was secondary from her Xarelto use. Patient is not anemic. Not hypotensive. Had a long discussion with the patient and daughter. Will discharge the patient home. Will have them contact their primary care doctor on Wednesday to discuss the continued use of the Xarelto. They were given return precautions. They both expressed understanding and agreement with plan. Discharge Plan Departure Patient Disposition: Home Clinical Impression: Pre-syncope, Hematuria, Atrial fibrillation, Lower back pain, Fall Discharge Date/Time: 02/05/18 09:46 Interventions: ED Discharge Assessment Last Done: 02/05/18 09:44 Instructions: DI for Syncope in Adults (Fainting), Blood in Urine, How to Prevent Falls Activity Restrictions/Additional Instructions: Recommend that you contact your primary care doctor on Wednesday to discuss the continued use of the Xarelto in the setting of the blood in your urine. This is a complex topic had a discussion needs to be had on the risks and benefits of this medication and is best done by your primary doctor. No urinary tract infection was found today. No fractures were noted on any of the x-rays or CT scans that were taken. Take care when going from lying to sitting or sitting to standing as this is the time with the highest likelihood of becoming lightheaded. Return to the emergency department for any new or worsening symptoms Prescriptions: No Action levothyroxine [Synthroid] 125 MCG tablet 100 mcg PO QDAY Qty: 0 RF: 0 telmisartan [Micardis] 80 MG tablet 80 mg PO QDAY Qty: 0 RF: 0 metoprolol succinate [Toprol XL] 25 MG tablet extended release 24 hr 50 mg PO QAM Qty: 0 RF: 0 metoprolol succinate [Toprol XL] 25 MG tablet extended release 24 hr 25 mg PO QPM Qty: 0 RF: 0 rivaroxaban [Xarelto] 15 mg Tablet 15 mg PO QPM RF: 0 sennosides [senna] 8.6 mg Tablet 17.2 mg PO DAILY PRN (Reason: Constipation) Qty: 30 RF: 0 alendronate 70 mg Tablet 70 mg PO We@0600 Qty: 20 RF: 0 calcium carbonate 200 mg calcium (500 mg) Tablet,Chewable 1,000 mg PO BID Qty: 60 RF: 0 cholecalciferol (vitamin D3) [Vitamin D3] 400 unit Tablet 800 unit PO DAILY Qty: 60 RF: 0 oxycodone 5 mg Tablet 10 mg PO Q3HR PRN (Reason: Pain, Severe (7-10)) Qty: 30 RF: 0
--- NOTE | 2018-02-05 05:57 | DI.CT.S_ITS ---
PROCEDURE: CT HEAD/BRAIN WO CON INDICATIONS: Fall. On Xarelto. TECHNIQUE: Noncontrast 4.5 mm thick angled axial sections acquired from the foramen magnum to the vertex, with coronal and sagittal reformats. For radiation dose reduction, the following was used: automated exposure control, adjustment of mA and/or kV according to patient size. COMPARISON: [facility], CT, CT HEAD/BRAIN WO CON, 01/01/2018, 22:10. FINDINGS: Image quality: Excellent. CSF spaces: Basal cisterns are patent. No extra-axial fluid collections. The ventricles are symmetric in size and shape. Brain: No intracranial bleeds or masses. There is cerebral volume loss for age, with resultant ventricular and sulcal prominence. There are periventricular and deep white matter chronic small vessel ischemic changes. Dense calcifications are again noted in left internal capsule. Benign calcifications are again seen in bilateral basal ganglia. There is intracranial internal carotid artery atherosclerosis. Skull and face: Calvarium and visualized facial bones appear intact, without suspicious lesions. Sinuses: Visualized sinuses and mastoids are clear. IMPRESSION: No CT evidence of acute intracranial pathology. No significant changes from previous study. No discrepancies from preliminary report. Dictated by: Hemanth Lozano M.D. on 02/05/2018 at 9:11 Approved by: Hemanth Lozano M.D. on 02/05/2018 at 9:13
--- NOTE | 2018-02-05 05:58 | DI.RAD.S_ITS ---
PROCEDURE: XR CHEST 1V INDICATIONS: syncope TECHNIQUE: One view of the chest was acquired. COMPARISON: [facility], , CHEST 1 VIEW, 11/12/2014, 9:48. FINDINGS: Surgical changes and devices: None. Lungs and pleura: No pleural effusions or pneumothorax. Lungs are clear. Mediastinum: Mediastinal contours appear normal. Heart size is enlarged. Bones and chest wall: No suspicious bony lesions. Overlying soft tissues appear unremarkable. Age-indeterminate and right posterior lateral seventh rib fracture is seen with no significant displacement at fracture site. IMPRESSION: No acute cardiopulmonary pathology. Age indeterminant right posterior lateral seventh rib fracture. Dictated by: Hemanth Lozano M.D. on 02/05/2018 at 9:07 Approved by: Hemanth Lozano M.D. on 02/05/2018 at 9:08
[2018-02-05 06:04] VITALS: BP 140/74; PULSE 84; RESP 18; O2SAT 97
[2018-02-05 06:10] LABS: Add Manual Diff / Slide Review NO; Basophils Percent Auto 0.6 % (0-2); Eosinophils Percent Auto 0.9 % (2-4); Hematocrit 36.1 % (36-46); Hemoglobin 12.4 g/dL (12.0-16.0); Lymphocytes Percent Auto 28.5 % (25-40); Mean Corpuscular HGB Conc 34.3 % (30-36); Mean Corpuscular Hemoglobin 31.6 PG (26-34); Neutrophils Absolute Auto 5000 /uL (3000-5900); Platelet Count 242 X10^3/uL (150-400); Red Blood Cell Count 3.92 X10^6/uL (4.0-5.2); Red Cell Distribution Width 13.1 % (11.6-14.8); White Blood Cell Count 7.9 X10^3/uL (4.5-11.0)
[2018-02-05 06:16] VITALS: BP 138/76; PULSE 89; RESP 23; O2SAT 97
[2018-02-05 06:20] LABS: INR 1.9 (0.9-1.3); Prothrombin Time 21.4 SECONDS (10.1-12.7)
[2018-02-05 06:23] LABS: PTT Partial Thromboplastin Tim 32 SECONDS (26.4-36.2)
[2018-02-05 06:25] LABS: Alanine Aminotransferase 27 IU/L (9-52); Albumin Globulin Ratio 1.5 (1.0-2.8); Alkaline Phosphatase 90 U/L (38-126); Aspartate Aminotransferase 27 IU/L (14-36); Bilirubin Total 0.6 mg/dL (0.2-1.3); Blood Urea Nitrogen 29 mg/dL (7-17); Calcium 9.9 mg/dL (8.4-10.2); Carbon Dioxide 28 mmol/L (22-32); Chloride 97 mmol/L (98-107); Creatine Kinase 32 U/L (30-135); Estimated Glomerular Filt Rate 53.3 mL/min (>60); Globulin 2.7 g/dL (1.7-4.1); Glucose 104 mg/dL (80-110); HEMOLYSIS < 15 (0-50); Potassium 3.6 mmol/L (3.4-5.1); Sodium 134 mmol/L (137-145); Total Protein 6.7 g/dL (6.3-8.2)
[2018-02-05 06:37] LABS: Troponin I < 0.012 ng/mL (0.01-0.034)
--- NOTE | 2018-02-05 06:44 | PC.NURSE ---
line started by EMS
[2018-02-05] MEDS: SODIUM CHLORIDE 0.9% 1,000 ML 150 ML IV (06:46)
--- NOTE | 2018-02-05 06:52 | PC.NURSE ---
provider notified of monitor alarming vtach. Provider stated the monitor is having difficulty reading her rhythm. No orders received.
[2018-02-05 07:44] VITALS: BP 147/81; PULSE 82; RESP 24; O2SAT 100
[2018-02-05 07:51] LABS: Bacteria Urine None Seen
[2018-02-05 07:52] LABS: Bilirubin Urine UA NEGATIVE (NEGATIVE); Glucose Urine UA NEGATIVE (Normal); Ketones Urine UA TRACE (NEGATIVE); Leukocyte Esterase Urine UA 1+ (NEGATIVE); Nitrite Urine UA Negative (Negative); Occult Blood Urine UA 3+ (Negative); Protein Urine UA 1+ (Negative); Urobilinogen Urine UA 0.2 E.U./dL (0.2)
[2018-02-05 08:03] LABS: Appearance Urine UA CLOUDY; Color Urine UA RED; RBC Urine >100/HPF (0-5/HPF); WBC Urine 5-10/HPF (0-5/HPF)
[2018-02-05 08:04] LABS: Culture Indicated Urine Specimen Cultured
--- NOTE | 2018-02-05 08:09 | DI.RAD.S_ITS ---
PROCEDURE: XR LUMBAR SPINE 2-3V INDICATIONS: lower lumbar pain after fall this AM TECHNIQUE: 5 views of the lumbar spine were acquired. COMPARISON: [facility], CR, XR LUMBAR SPINE 2-3V, 12/30/2017, 14:23. FINDINGS: Bones: 5 [id number] vertebrae are present. There is normal bony alignment. No vertebral body compression fractures is seen in lumbar spine vertebral bodies. Subacute appearing compression deformity involving T11 vertebral body is again seen, not significantly changed since previous CT study dated 01/02/18. No traumatic spondylolisthesis. No suspicious bony lesions. Soft tissues: Overlying bowel gas pattern is normal. No suspicious soft tissue calcifications. IMPRESSION: No acute compression fracture or traumatic spondylolisthesis is seen in lumbar spine. Subacute appearing severe anterior wedge compression deformity involving T11 vertebral body, not significant changed from previous CT study. Dictated by: Hemanth Lozano M.D. on 02/05/2018 at 9:04 Approved by: Hemanth Lozano M.D. on 02/05/2018 at 9:07
[2018-02-05 09:44] VITALS: BP 159/96; PULSE 90; RESP 22; O2SAT 99
--- NOTE | 2018-02-19 14:44 | PC.NURSE ---
late entry for saline infusion stop 02/05/18 stop time 0956. 450 infused 650 wasted Payton Weiner RN
== END 2018-02-05 09:46 | disposition home or self-care (01) ==
PROVIDERS: Emergency Medicine; Emergency Provider Emergency Medicine
DX: I48.91 Unspecified atrial fibrillation (principal); M54.5 Low back pain; R55 Syncope and collapse; R31.9 Hematuria, unspecified; W18.30XA Fall on same level, unspecified, initial encounter
CPT/HCPCS: 70450; 71045; 72100; 80053; 81001; 82550; 82553; 84484; 85025; 85610; 85730; 87086; 93005; 93010; 93041; 96360; 96361; 99284; 99285

== ENCOUNTER → 2018-02-08 10:56 | Outpatient (CLI) | payer MEDICARE, OTHER, SELFPAY ==
[2018-01-02 03:25] VITALS: BMI 21.6
[2018-02-08 11:49] LABS: Appearance Urine UA CLEAR; Bilirubin Urine UA NEGATIVE (NEGATIVE); Color Urine UA YELLOW; Glucose Urine UA NEGATIVE (Normal); Ketones Urine UA NEGATIVE (NEGATIVE); Leukocyte Esterase Urine UA 2+ (NEGATIVE); Nitrite Urine UA Negative (Negative); Occult Blood Urine UA TRACE-LYSED (Negative); Protein Urine UA NEGATIVE (Negative); Specific Gravity Urine UA <=1.005 (1.000-1.035); Urobilinogen Urine UA 0.2 E.U./dL (0.2); pH Urine UA 6.5 (4.5-8.0)
[2018-02-08 12:02] LABS: RBC Urine 1-5/HPF (0-5/HPF)
[2018-02-08 12:03] LABS: Bacteria Urine Moderate (10-30); Culture Indicated Urine Specimen Cultured; Squamous Epithelial Cell Urine 0-1 /HPF; WBC Urine 30-100/HPF (0-5/HPF)
== END ==
PROVIDERS: Visit Provider Student in an Organized Health Care Education/Training Program
DX: R55 Syncope and collapse (principal); R31.9 Hematuria, unspecified
CPT/HCPCS: 81001; 87077; 87086

== ENCOUNTER 2018-02-15 10:26 | Emergency (ER) | payer MEDICARE, OTHER, SELFPAY ==
[2018-01-02 03:25] VITALS: BMI 21.6
[2018-02-15] VITALS (8 sets, daily range): BP systolic 108–151; BP diastolic 68–102; PULSE 63–104; RESP 14–28; TEMP 36.5; O2SAT 94–98; BMI 21.4
[2018-02-15 11:05] LABS: Hematocrit 36.8 % (36-46); Hemoglobin 12.8 g/dL (12.0-16.0); Mean Corpuscular HGB Conc 34.7 % (30-36); Mean Corpuscular Hemoglobin 31.9 PG (26-34); Platelet Count 365 X10^3/uL (150-400); Red Cell Distribution Width 13.3 % (11.6-14.8); White Blood Cell Count 7.1 X10^3/uL (4.5-11.0)
--- NOTE | 2018-02-15 11:08 | ED_ITS ---
HPI - Syncope General Chief Complaint: Syncope Stated Complaint: Syncope Time Seen by Provider: 02/15/18 11:08 Source: patient and family Mode of arrival: ambulatory Limitations: no limitations History of Present Illness HPI narrative: The patient arrives by EMS after a near syncopal event. She receives home PT for back pain. The physical therapist was there with her daughter, while receiving physical therapy she nearly passed out. Her blood pressure was tested and was deemed to be low. Paramedics affirmed a low blood pressure prior to arrival. She has been alert since their arrival. She arrives with her son and daughter. The son and daughter described progressive loss of memory. The patient does not really remember the near syncopal event. She is having no chest pain, palpitations or dyspnea. She is anticoagulated for AFib. She has a contusion on her forehead. She cannot tell me what happened or when it happened. The family members tell me has been several days since she fell. She has no associated neck pain. She has no extremity pain or weakness. She denies a headache. She has no visual changes. The patient herself describes decreased appetite. Her recent oral intake of solids and fluids has been minimal. She has no abdominal pain, nausea vomiting. Related Data Home Medications Medication Instructions Recorded Confirmed telmisartan [Micardis] 80 mg PO QDAY #0 02/25/12 02/15/18 metoprolol succinate [Toprol XL] 25 mg PO QPM #0 02/14/17 02/15/18 metoprolol succinate [Toprol XL] 50 mg PO QAM #0 02/14/17 02/15/18 rivaroxaban [Xarelto] 15 mg PO QPM 01/02/18 02/15/18 calcitonin (salmon) 1 spray INTRANASAL DAILY 02/15/18 02/15/18 levothyroxine 1 tab PO DAILY 02/15/18 02/15/18 sulfamethoxazole-trimethoprim 1 tab PO BID 02/15/18 02/15/18 tramadol 50 mg PO TID 02/15/18 02/15/18 Previous Rx's Medication Instructions Recorded alendronate 70 mg PO We@0600 #20 tab 01/06/18 calcium carbonate 1,000 mg PO BID #60 tab 01/06/18 cholecalciferol (vitamin D3) 800 unit PO DAILY #60 tab 01/06/18 [Vitamin D3] sennosides [senna] 17.2 mg PO DAILY PRN #30 tab 01/06/18 Allergies Allergy/AdvReac Type Severity Reaction Status Date / Time atenolol [ATENOLOL] AdvReac Intermediate dizzyness Verified 02/15/18 10:29 Review of Systems Review of Systems All systems reviewed & are unremarkable except as noted in HPI and below Constitutional Denies chills, Denies fever(s), Denies lethargy and Denies weakness Eyes Denies change in vision, Denies eye discharge, Denies irritation and Denies loss of vision ENT Ears, Nose, Mouth, and Throat: Denies change in voice, Denies neck pain, Denies sore throat and Denies throat swelling Cardiovascular Denies chest pain, Denies irregular heart rhythm, Denies lightheadedness, Denies palpitations, Denies dyspnea, Reports dyspnea on exertion and Denies orthopnea Respiratory Denies cough, Denies dyspnea, Reports dyspnea on exertion and Denies wheezing Gastrointestinal Gastrointestinal: Denies abdominal pain, Denies change in bowel habits, Denies diarrhea, Denies nausea, Denies vomiting and Reports other Genitourinary Denies dysuria Musculoskeletal Denies myalgias, Denies arthralgias, Denies joint swelling and Denies neck pain Integumentary/Breasts Denies rash and Denies wounds Neurologic Reports confusion, Denies loss of vision and Denies weakness Psychiatric Reports confusion Endocrine Denies palpitations Hematologic/Lymphatic Reports easy bleeding Allergic/Immunologic Denies throat swelling and Denies wheezing [facility] Medical History Hypertension (Acute) Atrial fibrillation (Acute) Hypothyroidism (Acute) UTI (urinary tract infection), bacterial (Acute) Surgical History History of tonsillectomy (Acute) Previous section (Acute) Family History Mother No problems noted. Father No problems noted. Brother No problems noted. Brother No problems noted. Social History household members: none Smoking Status: Former smoker alcohol intake: current additional social history: She lives at home with family. Exam Initial Vital Signs Initial Vital Signs: Vital Signs Temperature 97.7 F 02/15/18 10:29 Pulse Rate 104 H 02/15/18 10:29 Respiratory Rate 16 02/15/18 10:29 Blood Pressure 120/90 02/15/18 10:29 Pulse Oximetry 95 02/15/18 10:29 Const General: cooperative Nutritional Appearance: well nourished Orientation: alert, awake, oriented x3 and confused HENNV Head: normocephalic and other (forehead contusion) Ears: TM's normal bilaterally Nose: external nose normal and No nasal discharge Face and sinus: sinuses nontender, face symmetric and sinus tenderness Mouth: oral mucosae normal and moist mucous membranes Throat: posterior oropharynx normal and uvula midline Eyes General: appearance normal, both eyes and all related structures Eyelids: eyelids normal Conjunctivae: conjunctivae normal Sclera: sclerae normal Pupils: PERRL EOM: EOM intact bilaterally Neck Neck: normal visual inspection, trachea midline, No lymphadenopathy, No midline deformity and No JVD Chest Chest: normal inspection of the chest Resp Effort & Inspection: normal respiratory effort, able to speak in complete sentences, no respiratory distress and no use of accessory muscles Auscultation: clear to auscultation bilaterally, no rales, no rhonchi and no wheezes Cardio Rhythm: abnormal rhythm irregularly irregular Heart Sounds: S1 normal and S2 normal Pulses: radial pulses present and dorsalis pedis present GI Inspection: normal to inspection Palpation: soft Percussion: normal to percussion Auscultation: normal bowel sounds (No distension. No guarding.) Back/Spine/Pelvis Back: No CVA tenderness Thoracic/Lumbar Spine: thoracic and lumbar spine normal to inspection Skin General: no rashes or lesions noted, No jaundice and No petechiae Neuro General: alert, oriented x3, gait normal and no focal motor deficits Speech: speech normal Extrem General: full ROM, no pedal edema and no calf tenderness Course Orders Ordered: ED Orders 02/15/18 10:20 C-Reactive Protein Quant Stat Complete Blood Count MAN DIFF Stat Comprehensive Metabolic Panel Stat Partial Thromboplastin Time Stat Prothrombin Time INR Stat Troponin & CK Cardiac Panel Stat 02/15/18 10:59 EKG-12 Lead Stat 02/15/18 11:30 XR chest 1V Stat EKG-12 Lead Stat 02/15/18 11:49 CT head/brain wo con Stat Discontinued Medications Sodium Chloride (Normal Saline 0.9%) 1,000 mls @ 1,000 mls/hr IV BOLUS ONE Stop: 02/15/18 12:29 Last Infusion: 02/15/18 13:57 Dose: 0 mls/hr Admin: 02/15/18 11:52 Dose: 1,000 mls/hr Vital Signs - 8 hr 02/15/18 10:29 02/15/18 11:00 02/15/18 11:30 Temperature 97.7 F Pulse Rate 104 H 101 H 94 H Respiratory Rate 16 28 H 28 H Blood Pressure 120/90 Blood Pressure [Right Arm] 122/68 127/69 Pulse Oximetry 95 98 98 02/15/18 12:00 02/15/18 12:30 02/15/18 13:00 Temperature Pulse Rate 91 H 91 H 92 H Respiratory Rate 15 14 17 Blood Pressure Blood Pressure [Right Arm] 140/69 151/88 H 149/85 H Pulse Oximetry 02/15/18 14:01 Temperature Pulse Rate 97 H Respiratory Rate 17 Blood Pressure Blood Pressure [Right Arm] 149/70 H Pulse Oximetry 94 MDM - Syncope Lab Data Result diagrams: 02/15/18 10:20 02/15/18 10:20 Lab Results 02/15/18 02/15/18 02/15/18 Range/Units 10:20 10:20 10:20 WBC 7.1 (4.5-11.0) X10^3/uL RBC 4.00 (4.0-5.2) X10^6/uL Hgb 12.8 (12.0-16.0) g/dL Hct 36.8 (36-46) % MCV 92.0 (80-100) fL MCH 31.9 (26-34) PG MCHC 34.7 (30-36) % RDW 13.3 (11.6-14.8) % Plt Count 365 (150-400) X10^3/uL Total Counted 100 Seg Neutrophils % 66.0 (38-70) % Lymphocytes % (Manual) 24.0 L (25-45) % Atypical Lymphs % 2.0 H ( - 0) % Monocytes % (Manual) 4.0 (2-11) % Eosinophils % (Manual) 2.0 (2-4) % Basophils % (Manual) 1.0 (0-1) % Myelocytes % 1.0 H (-0) % Neutrophils # (Manual) 4686 (5580-9274) /uL RBC Morphology Normal morphology PT (10.1-12.7) SECONDS INR (0.9-1.3) APTT (26.4-36.2) SECONDS Sodium 128 L (137-145) mmol/L Potassium 4.6 (3.4-5.1) mmol/L Chloride 91 L (98-107) mmol/L Carbon Dioxide 24 (22-32) mmol/L BUN 25 H (7-17) mg/dL Creatinine 1.30 H (0.52-1.04) mg/dL Estimated GFR 39.4 L (>60) mL/min BUN/Creatinine Ratio 19.2 (6-22) Glucose 120 H (80-110) mg/dL Calcium 10.1 (8.4-10.2) mg/dL Total Bilirubin 0.6 (0.2-1.3) mg/dL AST 31 (14-36) IU/L ALT 24 (9-52) IU/L Alkaline Phosphatase 101 (38-126) U/L Total Creatine Kinase 31 (30-135) U/L CK-MB (CK-2) CK-MB (CK-2) Rel Index Troponin I < 0.012 (0.01-0.034) ng/mL C-Reactive Protein 0.6 (<1.0) mg/dL Total Protein 7.7 (6.3-8.2) g/dL Albumin 4.5 (3.5-5.0) g/dL Globulin 3.2 (1.7-4.1) g/dL Albumin/Globulin Ratio 1.4 (1.0-2.8) Specimen Hemolysis 18 02/15/18 Range/Units 10:20 11:30 WBC (4.5-11.0) X10^3/uL RBC (4.0-5.2) X10^6/uL Hgb (12.0-16.0) g/dL Hct (36-46) % MCV (80-100) fL MCH (26-34) PG MCHC (30-36) % RDW (11.6-14.8) % Plt Count (150-400) X10^3/uL Total Counted Seg Neutrophils % (38-70) % Lymphocytes % (Manual) (25-45) % Atypical Lymphs % ( - 0) % Monocytes % (Manual) (2-11) % Eosinophils % (Manual) (2-4) % Basophils % (Manual) (0-1) % Myelocytes % (-0) % Neutrophils # (Manual) (8605-7488) /uL RBC Morphology PT 16.5 H (10.1-12.7) SECONDS INR 1.5 H (0.9-1.3) APTT 33 (26.4-36.2) SECONDS Sodium Cancelled (137-145) mmol/L Potassium Cancelled (3.4-5.1) mmol/L Chloride Cancelled (98-107) mmol/L Carbon Dioxide Cancelled (22-32) mmol/L BUN Cancelled (7-17) mg/dL Creatinine Cancelled (0.52-1.04) mg/dL Estimated GFR Cancelled (>60) mL/min BUN/Creatinine Ratio Cancelled (6-22) Glucose Cancelled (80-110) mg/dL Calcium Cancelled (8.4-10.2) mg/dL Total Bilirubin Cancelled (0.2-1.3) mg/dL AST Cancelled (14-36) IU/L ALT Cancelled (9-52) IU/L Alkaline Phosphatase Cancelled (38-126) U/L Total Creatine Kinase Cancelled (30-135) U/L CK-MB (CK-2) Cancelled CK-MB (CK-2) Rel Index Cancelled Troponin I Cancelled (0.01-0.034) ng/mL C-Reactive Protein (<1.0) mg/dL Total Protein Cancelled (6.3-8.2) g/dL Albumin Cancelled (3.5-5.0) g/dL Globulin Cancelled (1.7-4.1) g/dL Albumin/Globulin Ratio Cancelled (1.0-2.8) Specimen Hemolysis Cancelled Imaging Data Chest x-ray: Radiologist's impression: Mild chronic interstitial prominence, no acute disease. Old right-sided mid chest rib fracture again noted. CT scan - head: Radiologist's impression: No trauma found, no hemorrhage identified. Moderate microvascular atherosclerotic change stable over time. Source of new symptoms is not seen. ECG Data Attestation: I personally reviewed and interpreted this ECG as follows: (Atrial fib rate 86 bpm. Left axis deviation. Probable old anterior MO with Q-waves V1 through V4. No acute ST or T-wave changes. No ectopy.) MDM Narrative Medical decision making narrative: The patient has responded well to IV hydration. After 1 L of fluids she is up and ambulatory with normal postural vitals. She reportedly feels better. I talked to her and her son about regular hydration and regular eating. She seems to understand. Discharge Plan Departure Patient Disposition: Home Clinical Impression: Near syncope, Orthostatic hypotension Instructions: Orthostatic Hypotension Activity Restrictions/Additional Instructions: Continue your current medications. Be sure you are eating and drinking an appropriate amount on a daily basis. Uses supplements such as Ensure if necessary. Return here as needed. Prescriptions: No Action telmisartan [Micardis] 80 MG tablet 80 mg PO QDAY Qty: 0 RF: 0 metoprolol succinate [Toprol XL] 25 MG tablet extended release 24 hr 50 mg PO QAM Qty: 0 RF: 0 metoprolol succinate [Toprol XL] 25 MG tablet extended release 24 hr 25 mg PO QPM Qty: 0 RF: 0 rivaroxaban [Xarelto] 15 mg Tablet 15 mg PO QPM RF: 0 sennosides [senna] 8.6 mg Tablet 17.2 mg PO DAILY PRN (Reason: Constipation) Qty: 30 RF: 0 alendronate 70 mg Tablet 70 mg PO We@0600 Qty: 20 RF: 0 calcium carbonate 200 mg calcium (500 mg) Tablet,Chewable 1,000 mg PO BID Qty: 60 RF: 0 cholecalciferol (vitamin D3) [Vitamin D3] 400 unit Tablet 800 unit PO DAILY Qty: 60 RF: 0 sulfamethoxazole-trimethoprim 800-160 mg Tablet 1 tab PO BID RF: 0 tramadol 50 mg Tablet 50 mg PO TID RF: 0 calcitonin (salmon) 200 unit/actuation [place],Non-Aerosol 1 spray Intranasal DAILY RF: 0 levothyroxine 125 mcg tablet 1 tab PO DAILY RF: 0
[2018-02-15 11:11] LABS: Alanine Aminotransferase 24 IU/L (9-52); Albumin 4.5 g/dL (3.5-5.0); Albumin Globulin Ratio 1.4 (1.0-2.8); Alkaline Phosphatase 101 U/L (38-126); Aspartate Aminotransferase 31 IU/L (14-36); BUN Creatinine Ratio 19.2 (6-22); Bilirubin Total 0.6 mg/dL (0.2-1.3); Blood Urea Nitrogen 25 mg/dL (7-17); Calcium 10.1 mg/dL (8.4-10.2); Carbon Dioxide 24 mmol/L (22-32); Chloride 91 mmol/L (98-107); Creatine Kinase 31 U/L (30-135); Estimated Glomerular Filt Rate 39.4 mL/min (>60); Globulin 3.2 g/dL (1.7-4.1); Glucose 120 mg/dL (80-110); HEMOLYSIS < 15 (0-50); Potassium 4.6 mmol/L (3.4-5.1); Sodium 128 mmol/L (137-145); Total Protein 7.7 g/dL (6.3-8.2)
[2018-02-15 11:24] LABS: Troponin I < 0.012 ng/mL (0.01-0.034)
--- NOTE | 2018-02-15 11:30 | DI.RAD.S_ITS ---
PROCEDURE: XR CHEST 1V INDICATIONS: near syncope TECHNIQUE: One view of the chest was acquired. COMPARISON: [facility], , XR CHEST 1V, 02/05/2018, 5:35. [facility], , CHEST 1 VIEW, 11/12/2014, 9:48. FINDINGS: Surgical changes and devices: None. Lungs and pleura: No pleural effusions or pneumothorax. Lungs are clear except for a mild chronic interstitial prominence. Mediastinum: Mediastinal contours appear normal. Heart size is normal. Bones and chest wall: No suspicious bony lesions. Overlying soft tissues appear unremarkable. IMPRESSION: Mild chronic interstitial prominence, no acute disease. Old right-sided mid chest rib fracture again noted. Dictated by: Ulices Grover M.D. on 02/15/2018 at 12:06 Approved by: Ulices Grover M.D. on 02/15/2018 at 12:06
[2018-02-15 11:43] LABS: INR 1.5 (0.9-1.3); Prothrombin Time 16.5 SECONDS (10.1-12.7)
[2018-02-15 11:45] LABS: PTT Partial Thromboplastin Tim 33 SECONDS (26.4-36.2)
[2018-02-15 11:49] LABS: Neutrophils Absolute Manual 4686 /uL (3000-5900); Total Cells Counted 100
--- NOTE | 2018-02-15 11:49 | DI.CT.S_ITS ---
PROCEDURE: CT HEAD/BRAIN WO CON INDICATIONS: Confused. Near syncope. Anticoagulated with a recent fall. TECHNIQUE: Noncontrast 4.5 mm thick angled axial sections acquired from the foramen magnum to the vertex, with coronal and sagittal reformats. For radiation dose reduction, the following was used: automated exposure control, adjustment of mA and/or kV according to patient size. COMPARISON: [facility], CT, CT HEAD/BRAIN WO CON, 02/05/2018, 5:54. [facility], CT, CT HEAD/BRAIN WO CON, 01/01/2018, 22:10. [facility], CT, HEAD WITHOUT CONTRAST, 07/19/2016, 11:08. FINDINGS: Image quality: Excellent. CSF spaces: Basal cisterns are patent. No extra-axial fluid collections. The ventricles are symmetric in size and shape. Brain: No intracranial bleeds or masses. There is cerebral volume loss for age, with resultant ventricular and sulcal prominence. There are periventricular and deep white matter chronic small vessel ischemic changes. There is intracranial internal carotid artery atherosclerosis. Basal ganglia calcifications, left greater than right, stable over time. Skull and face: Calvarium and visualized facial bones appear intact, without suspicious lesions. Sinuses: Visualized sinuses and mastoids are clear. IMPRESSION: No trauma found, no hemorrhage identified. Moderate microvascular atherosclerotic change stable over time. Source of new symptoms is not seen. Dictated by: Ulices Grover M.D. on 02/15/2018 at 12:04 Approved by: lUices Grover M.D. on 02/15/2018 at 12:05
[2018-02-15 11:50] LABS: C-Reactive Protein Quant 0.6 mg/dL (<1.0)
[2018-02-15 11:51] LABS: RBC Morphology Normal Morphology
[2018-02-15] MEDS: SODIUM CHLORIDE 0.9% 1,000 ML 1000 ML IV (11:52)
--- NOTE | 2018-02-15 16:37 | PC.NURSE ---
Contacted patient's daughter about white metal earrings left in room, daughter stated she would be right down to pick them up. I told her that if she doesn't get a chance to excelsior picker by 7p that I would place them in [facility]
== END 2018-02-15 16:11 | disposition home or self-care (01) ==
PROVIDERS: Emergency Provider Emergency Medicine
DX: I95.1 Orthostatic hypotension (principal)
CPT/HCPCS: 36415; 70450; 71045; 80053; 82550; 82553; 84484; 85025; 85610; 85730; 86140; 93005; 93041; 96360; 96361; 99284; 99285

== ENCOUNTER → 2018-02-28 09:01 | Outpatient (CLI) | payer MEDICARE, OTHER, SELFPAY ==
[2018-01-02 03:25] VITALS: BMI 21.6
[2018-02-28 11:26] LABS: Appearance Urine UA CLEAR; Bilirubin Urine UA NEGATIVE (NEGATIVE); Color Urine UA YELLOW; Glucose Urine UA NEGATIVE (Normal); Ketones Urine UA NEGATIVE (NEGATIVE); Leukocyte Esterase Urine UA 1+ (NEGATIVE); Nitrite Urine UA Negative (Negative); Occult Blood Urine UA 3+ (Negative); Protein Urine UA TRACE (Negative); Specific Gravity Urine UA 1.015 (1.000-1.035); Urobilinogen Urine UA 0.2 E.U./dL (0.2); pH Urine UA 5.5 (4.5-8.0)
[2018-02-28 13:03] LABS: RBC Urine 30-100/HPF (0-5/HPF)
[2018-02-28 13:04] LABS: Bacteria Urine Few (2-10); Culture Indicated Urine Specimen Cultured; Mucus Urine 1+ (Negative); Squamous Epithelial Cell Urine 0-1 /HPF; WBC Urine 5-10/HPF (0-5/HPF)
== END ==
PROVIDERS: Visit Provider Internal Medicine
DX: R41.0 Disorientation, unspecified (principal)
CPT/HCPCS: 81001; 87086

== ENCOUNTER → 2018-03-08 13:30 | Oncology outpatient (ONC) | payer MEDICARE, OTHER, SELFPAY ==
[2018-01-02 03:25] VITALS: BMI 21.6
[2018-03-08 13:47] VITALS: BP 146/69; PULSE 90; RESP 16; TEMP 36.7; O2SAT 97
[2018-03-08] MEDS: ZOLEDRONIC ACID 5 MG in SODIUM CHLORIDE 0.9% 100 ML 318.75 ML IV (14:00)
== END ==
PROVIDERS: Visit Provider Internal Medicine
DX: M81.0 Age-related osteoporosis without current pathological fracture (principal)
CPT/HCPCS: 96374; J3489

== ENCOUNTER → 2018-03-14 10:27 | Outpatient (CLI) | payer MEDICARE, OTHER, SELFPAY ==
[2018-01-02 03:25] VITALS: BMI 21.6
--- NOTE | 2018-03-14 | DI.MRI.S_ITS ---
PROCEDURE: MR HEAD/BRAIN WO CON INDICATIONS: DEMENTIA TECHNIQUE: Non-contrast axial T1 spin echo, axial T2 fast spin echo, sagittal and axial FLAIR, coronal T2 fast spin echo, axial gradient echo, axial diffusion and ADC through the brain. COMPARISON: None. FINDINGS: Image quality: Excellent. CSF spaces: Ventricles appear symmetric in size and shape. Basal cisterns are patent. No extra-axial fluid collections. Brain: No intracranial bleeds or mass effects. There is cerebral volume loss for age. There are periventricular and deep white matter chronic small vessel ischemic changes. Brainstem appears normal. Diffusion-weighted images show no acute ischemic insults. No chronic ischemic insults. Normal intravascular flow voids are present. Skull and face: Calvarial bone marrow is normal in signal. Orbits are normal. Sinuses: Sinuses and mastoids are clear. IMPRESSION: No mass or stroke. Moderate microvascular change, expected for age. Dictated by: Ulices Grover M.D. on 03/14/2018 at 12:52 Approved by: Ulices Grover M.D. on 03/14/2018 at 12:53
== END ==
PROVIDERS: PCP Internal Medicine; Visit Provider Internal Medicine
DX: F03.90 Unspecified dementia, unspecified severity, without behavioral disturbance, psychotic disturbance, mood disturbance, and anxiety (principal)
CPT/HCPCS: 70551

== ENCOUNTER 2018-07-11 14:08 | Emergency (ER) | payer MEDICARE, OTHER, SELFPAY ==
[2018-01-02 03:25] VITALS: BMI 21.6
[2018-07-11] VITALS (12 sets, daily range): BP systolic 168–228; BP diastolic 98–140; PULSE 82–124; RESP 15–22; TEMP 36.3–36.5; O2SAT 96–99; BMI 24.0
[2018-07-11 14:20] LABS: Add Manual Diff / Slide Review NO; Basophils Absolute Auto 100 /uL (0-100); Basophils Percent Auto 0.7 % (0-2); Eosinophils Absolute Auto 0 /uL (0-450); Eosinophils Percent Auto 0.2 % (2-4); Hematocrit 42.8 % (36-46); Hemoglobin 14.7 g/dL (12.0-16.0); Lymphocytes Absolute Auto 1500 /uL (1100-4500); Lymphocytes Percent Auto 14.9 % (25-40); Mean Corpuscular HGB Conc 34.4 % (30-36); Mean Corpuscular Volume 87.3 fL (80-100); Monocytes Absolute Auto 500 /uL (0-900); Neutrophils Absolute Auto 8100 /uL (1500-7000); Neutrophils Percent Auto 79.2 % (50-75); Platelet Count 327 X10^3/uL (150-400); Red Cell Distribution Width 13.3 % (11.6-14.8); White Blood Cell Count 10.2 X10^3/uL (4.5-11.0)
[2018-07-11 14:25] LABS: INR 1.1 (0.9-1.3); Prothrombin Time 12.7 SECONDS (10.1-12.7)
[2018-07-11 14:28] LABS: PTT Partial Thromboplastin Tim 28 SECONDS (26.4-36.2)
[2018-07-11] MEDS: SODIUM CHLORIDE 0.9% 1,000 ML 1000 ML IV (14:30)
--- NOTE | 2018-07-11 14:30 | DI.RAD.S_ITS ---
PROCEDURE: XR CHEST 1V INDICATIONS: chest pain TECHNIQUE: One view of the chest was acquired. COMPARISON: [facility], CR, XR CHEST 1V, 02/15/2018, 11:40. [facility], CR, XR CHEST 1V, 02/05/2018, 5:35. FINDINGS: Surgical changes and devices: None. Lungs and pleura: Lungs are abnormal with a mild interstitial prominence. No pleural effusions or pneumothorax. Mediastinum: Mediastinal contours appear normal. Heart size is globally enlarged mildly, in the setting of relatively large lung volumes. Bones and chest wall: No suspicious bony lesions. Overlying soft tissues appear unremarkable. Old right-sided posterolateral rib fractures IMPRESSION: Mild cardiomegaly, relatively large lung volumes and COPD may be present. Interstitial prominence, suspect prior smoking history. Dictated by: Ulices Grover M.D. on 07/11/2018 at 14:58 Approved by: Ulices Grover M.D. on 07/11/2018 at 14:59
[2018-07-11 14:34] LABS: Alanine Aminotransferase 30 IU/L (9-52); Albumin 4.4 g/dL (3.5-5.0); Albumin Globulin Ratio 1.3 (1.0-2.8); Alkaline Phosphatase 134 U/L (38-126); Aspartate Aminotransferase 35 IU/L (14-36); Bilirubin Total 0.8 mg/dL (0.2-1.3); Blood Urea Nitrogen 27 mg/dL (7-17); Calcium 9.9 mg/dL (8.4-10.2); Carbon Dioxide 24 mmol/L (22-32); Chloride 97 mmol/L (98-107); Estimated Glomerular Filt Rate > 60.0 mL/min (>60); Globulin 3.5 g/dL (1.7-4.1); Glucose 121 mg/dL (80-110); HEMOLYSIS < 15 (0-50); Lipase 200 U/L (23-300); Potassium 4.4 mmol/L (3.4-5.1); Sodium 133 mmol/L (137-145); Total Protein 7.9 g/dL (6.3-8.2)
--- NOTE | 2018-07-11 14:57 | ED.NAVMDI ---
HPI - Nausea/Vomiting/Diarrhea General Chief complaint: Abdominal Pain Stated complaint: N/V, ? dehydration Time Seen by Provider: 07/11/18 14:47 Source: patient Mode of arrival: EMS Limitations: no limitations History of Present Illness HPI Narrative: This is an 82-year-old female comes to the emergency department with complaint of vomiting and diarrhea for the last 2 days. Patient states that she is just not feeling very good. She denies any fevers. She states she has been nauseated she was vomiting quite a bit last night and little bit this morning. Patient states that she did have some diarrhea. She did not know any black or bloody stools she had some abdominal pain, she has any chest pain or shortness of breath. She is denying any urinary issues. She states she did urinate this morning. Patient is not sure if she was able to keep down her medications for her AFib. She is not any sensations of palpitations. She did feel lightheaded today. Related Data Home Medications Medication Instructions Recorded Confirmed metoprolol succinate [Toprol XL] 75 mg PO DAILY #0 02/14/17 07/11/18 Xarelto 15 mg PO QPM 01/02/18 07/11/18 calcitonin (salmon) 1 spray INTRANASAL DAILY 02/15/18 07/11/18 calcium carbonate [Calcium 500] 1 tab PO BIDWM 07/11/18 07/11/18 cholecalciferol (vitamin D3) 2,000 unit PO DAILY 07/11/18 07/11/18 [Vitamin D3] donepezil 10 mg PO DAILY 07/11/18 07/11/18 levothyroxine 112 mcg PO DAILY 07/11/18 07/11/18 telmisartan [Micardis] 20 mg PO DAILY 07/11/18 07/11/18 tramadol 50 mg PO TID PRN 07/11/18 07/11/18 Previous Rx's Medication Instructions Recorded alendronate 70 mg PO We@0600 #20 tab 01/06/18 sennosides [senna] 17.2 mg PO DAILY PRN #30 tab 01/06/18 Allergies Allergy/AdvReac Type Severity Reaction Status Date / Time atenolol [ATENOLOL] AdvReac Intermediate dizzyness Verified 02/15/18 10:29 Review of Systems Review of Systems ROS Unobtainable: All systems reviewed & are unremarkable except as noted in HPI and below Constitutional Denies chills, Denies fever(s), Denies headache(s), Reports lethargy and Denies weakness Eyes Denies change in vision ENT Ears, Nose, Mouth, and Throat: Denies headache(s) Cardiovascular Denies chest pain, Denies diaphoresis, Denies syncope, Denies irregular heart rhythm, Reports lightheadedness, Denies palpitations, Denies dyspnea, Denies dyspnea on exertion and Denies orthopnea Respiratory Denies chest congestion, Denies cough, Denies dyspnea, Denies dyspnea on exertion and Denies wheezing Gastrointestinal Gastrointestinal: Reports abdominal pain, Denies melena, Denies hematochezia, Denies change in bowel habits, Reports diarrhea, Reports nausea and Reports vomiting Genitourinary Denies hematuria, Denies dysuria, Denies flank pain, Denies urinary incontinence, Denies urinary urgency and Denies other (Decreased urine output) Musculoskeletal Denies back pain Integumentary/Breasts Denies rash Neurologic Denies syncope, Denies headache(s) and Denies weakness Endocrine Denies palpitations Allergic/Immunologic Denies wheezing [facility] Medical History Hypertension (Acute) Atrial fibrillation (Acute) Hypothyroidism (Acute) UTI (urinary tract infection), bacterial (Acute) Social History household members: none Smoking Status: Former smoker alcohol intake: current additional social history: She lives at home with family. Exam Narrative Exam Narrative: GEN: well nourished, thin elderly female, alert and oriented x 3, patient appears to be in mild distress. HEENT: Atraumatic, pupils are equal round reactive to light, extraocular movements are intact, nares are clear, TMs are clear with no fluid. Throat is clear without any exudates, erythema, tonsillar enlargement or uvular deviation HEART: Regular rate and rhythm without murmur, clicks, rubs. LUNGS:Lungs clear to auscultation, no wheezes, rales, crackles, chest moves symmetrically ABD:bowel sounds normal, soft, non-tender, no guarding, rebound, rigidity, no masses noted, no hepatosplenomegaly :No CVA tenderness MSCL: Non-tender, no muscle atrophy, muscles strength 5/5 upper and lower extremities, full range of motion, normal gait NEURO:CN 2-12 intact, sensation normal Initial Vital Signs Initial Vital Signs: Vital Signs Temperature 97.7 F 07/11/18 14:17 Pulse Rate 120 H 07/11/18 14:17 Respiratory Rate 16 07/11/18 14:17 Blood Pressure 175/98 H 07/11/18 14:17 Pulse Oximetry 98 07/11/18 14:17 Scores NIH Stroke Scale Level of Conciousness: Alert, keenly responsive Ask month/age: Answers both questions correctly. Open/close eyes, close hand: Performs both tasks correctly Best gaze horizontal: Normal Visual salgado: No visual loss Facial palsy: Normal symetrical movement Left arm drift: No drift for full 10 sec Right arm drift: No drift for full 10 sec Left leg drift: No drift for full 10 sec Right leg drift: No drift for full 10 sec Limb ataxia: Absent Sensory on face/arms/legs: Normal, no sensory loss Best language: No aphasia, normal Dysarthria: Normal Extinction or inattention: No abnormality Total NIH Stroke scale score: 0 Course Orders Ordered: ED Orders 07/11/18 13:55 Complete Blood Count AUTO DIFF Stat Comprehensive Metabolic Panel Stat Lipase Stat Partial Thromboplastin Time Stat Prothrombin Time INR Stat Troponin & CK Cardiac Panel Stat 07/11/18 14:27 EKG-12 Lead Stat 07/11/18 14:30 XR chest 1V Stat 07/11/18 16:07 CT abdomen pelvis w con Stat 07/11/18 17:43 CT head/brain wo con Stat 07/11/18 17:45 Urine Culture Stat Urine Microscopic Stat Sodium Chloride (Normal Saline 0.9%) 1,000 mls @ 1,000 mls/hr IV BOLUS ONE Stop: 07/11/18 20:21 Last Infusion: 07/11/18 15:30 Dose: 0 mls/hr Admin: 07/11/18 14:30 Dose: 1,000 mls/hr Discontinued Medications Labetalol HCl (Trandate) 10 mg IV NOW ONE Stop: 07/11/18 19:19 Metoprolol Tartrate (Lopressor) 5 mg IV NOW ONE Stop: 07/11/18 14:57 Last Admin: 07/11/18 15:02 Dose: 5 mg Metoprolol Tartrate (Lopressor) 75 mg PO NOW ONE Stop: 07/11/18 17:16 Last Admin: 07/11/18 17:37 Dose: 75 mg Ondansetron HCl (Zofran) 4 mg IV NOW ONE Stop: 07/11/18 14:15 Last Admin: 07/11/18 15:02 Dose: 4 mg Vital Signs - 8 hr 07/11/18 14:17 07/11/18 14:31 07/11/18 15:02 Temperature 97.7 F Pulse Rate 120 H 123 H 124 H Respiratory Rate 16 17 18 Blood Pressure 175/98 H Blood Pressure [Right Arm] 183/117 H 228/125 H Pulse Oximetry 98 96 98 07/11/18 15:07 07/11/18 15:18 07/11/18 16:11 Temperature Pulse Rate 107 H 105 H 82 Respiratory Rate 18 18 16 Blood Pressure Blood Pressure [Right Arm] 180/140 H 198/119 H 188/107 H Pulse Oximetry 99 07/11/18 17:00 07/11/18 18:00 07/11/18 19:00 Temperature 97.4 F L Pulse Rate 91 H 95 H 98 H Respiratory Rate 19 15 22 Blood Pressure Blood Pressure [Right Arm] 196/106 H 177/113 H Pulse Oximetry 98 99 99 MDM - Nausea/Vomiting/Diarrhea Lab Data Attestation: I reviewed the patient's lab results. Result diagrams: 07/11/18 13:55 07/11/18 13:55 Lab Results 07/11/18 07/11/18 07/11/18 Range/Units 13:55 13:55 13:55 WBC 10.2 (4.5-11.0) X10^3/uL RBC 4.90 (4.0-5.2) X10^6/uL Hgb 14.7 (12.0-16.0) g/dL Hct 42.8 (36-46) % MCV 87.3 (80-100) fL MCH 30.0 (26-34) PG MCHC 34.4 (30-36) % RDW 13.3 (11.6-14.8) % Plt Count 327 (150-400) X10^3/uL Neut % (Auto) 79.2 H (50-75) % Lymph % (Auto) 14.9 L (25-40) % [place]urry % (Auto) 5.0 (3-14) % Eos % (Auto) 0.2 L (2-4) % Baso % (Auto) 0.7 (0-2) % Neut # (Auto) 8100 H (5812-1280) /uL Lymph # (Auto) 1500 (3687-4947) /uL [place] # (Auto) 500 (0-900) /uL Eos # (Auto) 0 (0-450) /uL Baso # (Auto) 100 (0-100) /uL PT 12.7 (10.1-12.7) SECONDS INR 1.1 (0.9-1.3) APTT 28 D (26.4-36.2) SECONDS Sodium 133 L (137-145) mmol/L Potassium 4.4 (3.4-5.1) mmol/L Chloride 97 L (98-107) mmol/L Carbon Dioxide 24 (22-32) mmol/L BUN 27 H (7-17) mg/dL Creatinine 0.90 (0.52-1.04) mg/dL Estimated GFR > 60.0 (>60) mL/min BUN/Creatinine Ratio 30.0 H (6-22) Glucose 121 H (80-110) mg/dL Calcium 9.9 (8.4-10.2) mg/dL Total Bilirubin 0.8 (0.2-1.3) mg/dL AST 35 (14-36) IU/L ALT 30 (9-52) IU/L Alkaline Phosphatase 134 H (38-126) U/L Total Creatine Kinase 23 L (30-135) U/L CK-MB (CK-2) TNP CK-MB (CK-2) Rel Index TNP Troponin I 0.015 (0.01-0.034) ng/mL Total Protein 7.9 (6.3-8.2) g/dL Albumin 4.4 (3.5-5.0) g/dL Globulin 3.5 (1.7-4.1) g/dL Albumin/Globulin Ratio 1.3 (1.0-2.8) Lipase 200 (23-300) U/L Urine RBC (0-5/HPF) Urine WBC (0-5/HPF) Ur Squamous Epith Cells Ur Transition Epith Cell (0-5/HPF) Urine Bacteria (None) Ur Culture Indicated? 07/11/18 Range/Units 17:45 WBC (4.5-11.0) X10^3/uL RBC (4.0-5.2) X10^6/uL Hgb (12.0-16.0) g/dL Hct (36-46) % MCV (80-100) fL MCH (26-34) PG MCHC (30-36) % RDW (11.6-14.8) % Plt Count (150-400) X10^3/uL Neut % (Auto) (50-75) % Lymph % (Auto) (25-40) % [place] % (Auto) (3-14) % Eos % (Auto) (2-4) % Baso % (Auto) (0-2) % Neut # (Auto) (4840-1629) /uL Lymph # (Auto) (5752-2823) /uL [place] # (Auto) (0-900) /uL Eos # (Auto) (0-450) /uL Baso # (Auto) (0-100) /uL PT (10.1-12.7) SECONDS INR (0.9-1.3) APTT (26.4-36.2) SECONDS Sodium (137-145) mmol/L Potassium (3.4-5.1) mmol/L Chloride (98-107) mmol/L Carbon Dioxide (22-32) mmol/L BUN (7-17) mg/dL Creatinine (0.52-1.04) mg/dL Estimated GFR (>60) mL/min BUN/Creatinine Ratio (6-22) Glucose (80-110) mg/dL Calcium (8.4-10.2) mg/dL Total Bilirubin (0.2-1.3) mg/dL AST (14-36) IU/L ALT (9-52) IU/L Alkaline Phosphatase (38-126) U/L Total Creatine Kinase (30-135) U/L CK-MB (CK-2) CK-MB (CK-2) Rel Index Troponin I (0.01-0.034) ng/mL Total Protein (6.3-8.2) g/dL Albumin (3.5-5.0) g/dL Globulin (1.7-4.1) g/dL Albumin/Globulin Ratio (1.0-2.8) Lipase (23-300) U/L Urine RBC 1-5/hpf D (0-5/HPF) Urine WBC 30-100/hpf H (0-5/HPF) Ur Squamous Epith Cells 1-5 /hpf Ur Transition Epith Cell 1-5/hpf (0-5/HPF) Urine Bacteria Few (2-10) H (None) Ur Culture Indicated? Specimen cultured Urine Dip Bedside Urine Glucose Negative Bedside Urine Bilirubin - Negative Bedside Urine Ketone +/- 5 Urine Specific [place] 1.015 Bedside Urine Occult Blood +/- Bedside Urine pH 6.0 Bedside Urine Protein + 30 Bedside Urine Urobilinogen - Negative Bedside Urine Nitrite - Negative Bedside Urine Leukocytes ++ 125 Esterase Imaging Data Chest x-ray: Radiologist's impression: [address] [address] XRay Report Signed Patient: Samira Encinas PEDROR#: [id number] : 8Acct:[id number] Age/Sex: 82 / FDate of Service: 07/11/18 Loc: ED Accession Number: [id number] Procedure: XR chest 1V Ordering Provider: Cristiane Elliott D.O. PROCEDURE: XR CHEST 1V INDICATIONS: chest pain TECHNIQUE: One view of the chest was acquired. COMPARISON: [facility], CR, XR CHEST 1V, 02/15/2018, 11:40. [facility], CR, XR CHEST 1V, 02/05/2018, 5:35. FINDINGS: Surgical changes and devices: None. Lungs and pleura: Lungs are abnormal with a mild interstitial prominence. No pleural effusions or pneumothorax. Mediastinum: Mediastinal contours appear normal. Heart size is globally enlarged mildly, in the setting of relatively large lung volumes. Bones and chest wall: No suspicious bony lesions. Overlying soft tissues appear unremarkable. Old right-sided posterolateral rib fractures IMPRESSION: Mild cardiomegaly, relatively large lung volumes and COPD may be present. Interstitial prominence, suspect prior smoking history. Dictated by: Ulices Grover M.D. on 07/11/2018 at 14:58 Approved by: Ulices Grover M.D. on 07/11/2018 at 14:59 CT scan - head: Radiologist's impression: [address] [address] [address] Scan Report Signed Patient: Samira Encinas PEDROR#: [id number] : 8Acct:[id number] Age/Sex: 82 / FDate of Service: 07/11/18 Loc: ED Accession Number: [id number] Procedure: CT head/brain wo con Ordering Provider: Cristiane Elliott D.O. PROCEDURE: CT HEAD/BRAIN WO CON INDICATIONS: dizziness, weakness, afib TECHNIQUE: Noncontrast 4.5 mm thick angled axial sections acquired from the foramen magnum to the vertex, with coronal and sagittal reformats. For radiation dose reduction, the following was used: automated exposure control, adjustment of mA and/or kV according to patient size. COMPARISON: [facility], CT, CT ABDOMEN PELVIS W CON, 07/11/2018, 16:10. [facility], CT, CT HEAD/BRAIN WO CON, 02/05/2018, 5:54. [facility], MR, MR HEAD/BRAIN WO CON, 03/14/2018, 11:31. [facility], CT, CT HEAD/BRAIN WO CON, 02/15/2018, 11:41. FINDINGS: Image quality: Excellent. CSF spaces: Basal cisterns are patent. A small subdural hematoma is present along the tentorium. The ventricles are symmetric in size and shape. Brain: There is a subtle hypodensity in right basal ganglia concerning for subacute infarct. Vague hyperdensities along the cerebellar sulci are noted bilaterally, right greater than left, suspicious for subarachnoid blood. Bilateral basal ganglia calcifications are present, left greater than right, unchanged. No intracranial masses. There is moderate cerebral volume loss for age, with resultant ventricular and sulcal prominence. There are moderate periventricular and deep white matter chronic small vessel ischemic changes. There is intracranial internal carotid artery atherosclerosis. Skull and face: Calvarium and visualized facial bones appear intact, without suspicious lesions. Sinuses: Visualized sinuses and mastoids are clear. IMPRESSION: 1. Subtle hypodensity in the right cerebellum compatible with subacute infarct. 2. There are vague hyperdensities along the sulci of cerebella bilaterally suspicious for small subarachnoid bleed. In addition, there is a small amount of subdural hematoma along the tentorium. Differential diagnosis include posttraumatic intracranial bleed versus hemorrhagic transformation of cerebellar infarction. 3. Cerebral volume loss and chronic microvascular ischemic changes. The result was discussed with Dr. Elliott on 07/11/2018 at 1815 hrs. Dictated by: Ramon Quarles M.D. on 07/11/2018 at 18:10 Approved by: Ramon Quarles M.D. on 07/11/2018 at 18:23 CT scan - abdomen: Radiologist's impression: [address] [address] [address] Scan Report Signed Patient: Samira Encinas JMR#: [id number] : 12/28/1936Acct:[id number] Age/Sex: 82 / FDate of Service: 07/11/18 Loc: ED Accession Number: [id number] Procedure: CT abdomen pelvis w con Ordering Provider: Cristiane Elliott D.O. PROCEDURE: CT ABDOMEN PELVIS W CON INDICATIONS: vomiting and diarrhea TECHNIQUE: After the administration of oral and intravenous contrast, 5 mm thick sections acquired from the diaphragms to the symphysis. 5 mm thick coronal and sagittal reformats were performed. For radiation dose reduction, the following was used: automated exposure control, adjustment of mA and/or kV according to patient size. COMPARISON: [facility], CT, CT KIDNEY URETER BLADDER (KUB), 01/01/2018, 22:10. FINDINGS: Image quality: Excellent. ABDOMEN: Lung bases: There is mild atelectasis in the dependent lungs bilaterally. No pleural effusion. Heart is enlarged. No pericardial effusion. Solid organs: Liver is normal in size and enhancement. Gallbladder is unremarkable. Biliary system is non-dilated. Pancreas enhances normally. A 6 mm diameter cystic lesion is present within the tail the pancreas which make indicate with the pancreatic duct (series 2, image 23). In retrospect, this was likely present on a study dated 01/05/18 and is grossly unchanged in size when compared with the prior noncontrast CT. Spleen is normal in size and enhancement. No adrenal nodules. The kidneys demonstrate symmetric enhancement. There is bilateral cortical thinning and cortical scarring in the upper pole of the right kidney. Peritoneum and bowel: Stomach, small bowel, and colon loops are normal in caliber and wall thickness. The appendix is not visualized; however there is no discrete right lower quadrant fluid or fat stranding to suggest acute appendicitis. There extensive colonic diverticular outpouchings throughout the sigmoid colon. No free fluid or air. Nodes and vessels: No retroperitoneal or mesenteric adenopathy. Aorta and inferior vena cava are normal in caliber. Dense atheromatous calcifications are present throughout the abdominal aorta. Miscellaneous: There is a small fat containing umbilical hernia. PELVIS: Genitourinary: Bladder wall thickness is normal. Miscellaneous: No inguinal hernias or adenopathy. Bones: No suspicious bony lesions. A severe compression deformity is present at T11. This has increased in severity when compared with the prior CT dated 01/01/18. IMPRESSION: 1. No acute intra-abdominal findings. The appendix was not visualized; however there are no ancillary findings to suggest acute appendicitis. 2. Diverticulosis. No acute diverticulitis. 3. 6 mm in diameter cystic lesion within the tail the pancreas. 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 If clinically indicated, non-emergent multiphase pancreatic mass protocol CT could be used to further characterize this finding. Dictated by: Amalia Espinal M.D. on 07/11/2018 at 16:33 Approved by: Amalia Espinal M.D. on 07/11/2018 at 16:42 ECG Data Attestation: I personally reviewed and interpreted this ECG as follows: Prior ECG tracings: available for review Interpretation: AFib with rapid ventricular response with a rate of 132 QRS of 108 QTC of 386. Three in V1 V2. Left axis deviation. Patient's EKG appears similar to prior from 02/15/2018 although she was not in RVR at that time. But ST segments/QRS are similar. [facility] Narrative Medical decision making narrative: Patient's lab work does not show any major abnormalities. She has had some recent vomiting. Plan for CT of abdomen and pelvis. Patient's blood pressure is also fairly elevated. She is in AFib with RVR, given a Liter of fluids as well some metoprolol IV. Patient's blood pressure improved as well as her heart rate although she is still irregular. Patient's CT of abdomen pelvis does not show any acute changes. Lab work does not show any major changes. Patient was able to stand try to get to the bedside commode but when she tries to ambulate she does seem to follow a little bit to her left side. Patient was able to give a urine sample. Patient's NIH scale is 0 patient's daughter arrived and states that she has been sort of bounce off the johnson and hang on to furniture while trying to move around the house. This has been for maybe 2 days, she has not noticed any weakness right vs. left, she thought maybe her mom had some facial droop the other day while she was sleeping but she was not 100% sure. When asked patient then stated that she did think she had a fall maybe yesterday and she did think that she hit her head. Patient did not initially sure this information. Head CT was ordered, it shows changes consistent with acute or subacute subarachnoid and subdural. Radiology called results to me. Discussed with patient she is open to transfer and treatment as needed. She was unsure about her code status initially stating she did think that she wanted to be intubated but possibly open to CPR. She states that she would like some time to think about this but she would be open to surgery/intervention if an option. Spoke with Dr. Heredia from [facility], accepts for transfer. Plan for labetolol IV pushes if inadequate BP control then nicardipine gtt. Goal sbp 180. Images were reviewed. Hold Xaeralto, no reversal at this time. Patient signed out to Dr. Schultz while awaiting transport. Critical Care Time Critical Care Time: Yes Total Critical Care Time: 120 Attestation: The high probability of a clinically significant, sudden or life threatening deterioration of the [neurologic] system(s) required my full and direct attention, intervention and personal management. The aggregate critical care time was [120] minutes. This time is in addition to time spent performing reported procedures but includes the following: [x] Data Review and interpretation [x] Patient assessment and monitoring of vital signs [x] Documentation [x] Medication orders and management Discharge Plan Departure Patient Disposition: [facility] Clinical Impression: Subarachnoid bleed, Subdural hematoma, Fall from ground level, CVA (cerebral vascular accident) Prescriptions: No Action metoprolol succinate [Toprol XL] 25 MG tablet extended release 24 hr 75 mg PO DAILY Qty: 0 RF: 0 Xarelto 15 mg Tablet 15 mg PO QPM RF: 0 sennosides [senna] 8.6 mg Tablet 17.2 mg PO DAILY PRN (Reason: Constipation) Qty: 30 RF: 0 alendronate 70 mg Tablet 70 mg PO We@0600 Qty: 20 RF: 0 calcitonin (salmon) 200 unit/actuation [place],Non-Aerosol 1 spray Intranasal DAILY RF: 0 donepezil 10 mg tablet 10 mg PO DAILY RF: 0 levothyroxine 112 mcg tablet 112 mcg PO DAILY RF: 0 tramadol 50 mg tablet 50 mg PO TID PRN (Reason: pain) RF: 0 calcium carbonate [Calcium 500] 500 mg calcium (1,250 mg) Tablet 1 tab PO BIDWM RF: 0 telmisartan [Micardis] 20 mg tablet 20 mg PO DAILY RF: 0 cholecalciferol (vitamin D3) [Vitamin D3] 2,000 unit Capsule 2,000 unit PO DAILY RF: 0 Referrals: Argentina Brewer MD [Primary Care Provider] -
[2018-07-11] MEDS: METOPROLOL TARTRATE 5 MG/5 ML INJ IV (15:02)
[2018-07-11] MEDS: ONDANSETRON 4 MG/2 ML INJ IV (15:02)
[2018-07-11 15:29] LABS: Creatine Kinase 23 U/L (30-135)
[2018-07-11 15:42] LABS: Troponin I 0.015 ng/mL (0.01-0.034)
--- NOTE | 2018-07-11 16:07 | DI.CT.S_ITS ---
PROCEDURE: CT ABDOMEN PELVIS W CON INDICATIONS: vomiting and diarrhea TECHNIQUE: After the administration of oral and intravenous contrast, 5 mm thick sections acquired from the diaphragms to the symphysis. 5 mm thick coronal and sagittal reformats were performed. For radiation dose reduction, the following was used: automated exposure control, adjustment of mA and/or kV according to patient size. COMPARISON: [facility], CT, CT KIDNEY URETER BLADDER (KUB), 01/01/2018, 22:10. FINDINGS: Image quality: Excellent. ABDOMEN: Lung bases: There is mild atelectasis in the dependent lungs bilaterally. No pleural effusion. Heart is enlarged. No pericardial effusion. Solid organs: Liver is normal in size and enhancement. Gallbladder is unremarkable. Biliary system is non-dilated. Pancreas enhances normally. A 6 mm diameter cystic lesion is present within the tail the pancreas which make indicate with the pancreatic duct (series 2, image 23). In retrospect, this was likely present on a study dated 01/05/18 and is grossly unchanged in size when compared with the prior noncontrast CT. Spleen is normal in size and enhancement. No adrenal nodules. The kidneys demonstrate symmetric enhancement. There is bilateral cortical thinning and cortical scarring in the upper pole of the right kidney. Peritoneum and bowel: Stomach, small bowel, and colon loops are normal in caliber and wall thickness. The appendix is not visualized; however there is no discrete right lower quadrant fluid or fat stranding to suggest acute appendicitis. There extensive colonic diverticular outpouchings throughout the sigmoid colon. No free fluid or air. Nodes and vessels: No retroperitoneal or mesenteric adenopathy. Aorta and inferior vena cava are normal in caliber. Dense atheromatous calcifications are present throughout the abdominal aorta. Miscellaneous: There is a small fat containing umbilical hernia. PELVIS: Genitourinary: Bladder wall thickness is normal. Miscellaneous: No inguinal hernias or adenopathy. Bones: No suspicious bony lesions. A severe compression deformity is present at T11. This has increased in severity when compared with the prior CT dated 01/01/18. IMPRESSION: 1. No acute intra-abdominal findings. The appendix was not visualized; however there are no ancillary findings to suggest acute appendicitis. 2. Diverticulosis. No acute diverticulitis. 3. 6 mm in diameter cystic lesion within the tail the pancreas. 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 If clinically indicated, non-emergent multiphase pancreatic mass protocol CT could be used to further characterize this finding. Dictated by: Amalia Espinal M.D. on 07/11/2018 at 16:33 Approved by: Amalia Espinal M.D. on 07/11/2018 at 16:42
[2018-07-11] MEDS: METOPROLOL IR 25 MG TABLET 75 MG PO (17:37)
--- NOTE | 2018-07-11 17:43 | DI.CT.S_ITS ---
PROCEDURE: CT HEAD/BRAIN WO CON INDICATIONS: dizziness, weakness, afib TECHNIQUE: Noncontrast 4.5 mm thick angled axial sections acquired from the foramen magnum to the vertex, with coronal and sagittal reformats. For radiation dose reduction, the following was used: automated exposure control, adjustment of mA and/or kV according to patient size. COMPARISON: [facility], CT, CT ABDOMEN PELVIS W CON, 07/11/2018, 16:10. [facility], CT, CT HEAD/BRAIN WO CON, 02/05/2018, 5:54. [facility], MR, MR HEAD/BRAIN WO CON, 03/14/2018, 11:31. [facility], CT, CT HEAD/BRAIN WO CON, 02/15/2018, 11:41. FINDINGS: Image quality: Excellent. CSF spaces: Basal cisterns are patent. A small subdural hematoma is present along the tentorium. The ventricles are symmetric in size and shape. Brain: There is a subtle hypodensity in right basal ganglia concerning for subacute infarct. Vague hyperdensities along the cerebellar sulci are noted bilaterally, right greater than left, suspicious for subarachnoid blood. Bilateral basal ganglia calcifications are present, left greater than right, unchanged. No intracranial masses. There is moderate cerebral volume loss for age, with resultant ventricular and sulcal prominence. There are moderate periventricular and deep white matter chronic small vessel ischemic changes. There is intracranial internal carotid artery atherosclerosis. Skull and face: Calvarium and visualized facial bones appear intact, without suspicious lesions. Sinuses: Visualized sinuses and mastoids are clear. IMPRESSION: 1. Subtle hypodensity in the right cerebellum compatible with subacute infarct. 2. There are vague hyperdensities along the sulci of cerebella bilaterally suspicious for small subarachnoid bleed. In addition, there is a small amount of subdural hematoma along the tentorium. Differential diagnosis include posttraumatic intracranial bleed versus hemorrhagic transformation of cerebellar infarction. 3. Cerebral volume loss and chronic microvascular ischemic changes. The result was discussed with Dr. Elliott on 07/11/2018 at 1815 hrs. Dictated by: Ramon Quarles M.D. on 07/11/2018 at 18:10 Approved by: Ramon Quarles M.D. on 07/11/2018 at 18:23
[2018-07-11 18:21] LABS: Bacteria Urine Few (2-10); RBC Urine 1-5/HPF (0-5/HPF); Squamous Epithelial Cell Urine 1-5 /HPF; Transitional Epi Cells Urine 1-5/HPF (0-5/HPF); WBC Urine 30-100/HPF (0-5/HPF)
[2018-07-11 18:22] LABS: Culture Indicated Urine Specimen Cultured
--- NOTE | 2018-07-11 18:50 | PC.NURSE ---
Family member arrived around 1800 - informed MD and RN of recent fall, two or one day ago. Also, informed patient confused at times and having troubles ambulating;
--- NOTE | 2018-07-11 18:54 | PC.NURSE ---
Patient with left weakness with ambulation;
--- NOTE | 2018-07-11 19:35 | PC.NURSE ---
Provider notified of blood pressure less than 180 systolic. labetalol held.
--- NOTE | 2018-07-11 20:25 | PC.NURSE ---
Pt transfered to [facility] with 1 person assist
[2018-07-11] MEDS: LABETALOL 20 MG/4 ML SYRINGE 10 MG IV (20:48)
--- NOTE | 2018-07-11 20:49 | PC.NURSE ---
pressure increased to 190s systolic. Provider notified, Labetalol given.
--- NOTE | 2018-07-11 21:25 | PC.NURSE ---
drawn by lab
[2018-07-11] MEDS: NICARDIPINE 25 MG in SODIUM CHLORIDE 0.9% 240 ML 50 ML IV (21:56)
--- NOTE | 2018-07-11 22:06 | PC.NURSE ---
Nicardapine to continue in transport
== END 2018-07-11 22:07 | disposition short-term general hospital (02) ==
PROVIDERS: Emergency Medicine; Emergency Provider Emergency Medicine; PCP Internal Medicine
DX: S06.6X0A Traumatic subarachnoid hemorrhage without loss of consciousness, initial encounter (principal); S06.5X0A Traumatic subdural hemorrhage without loss of consciousness, initial encounter; D68.32 Hemorrhagic disorder due to extrinsic circulating anticoagulants; W18.30XA Fall on same level, unspecified, initial encounter
CPT/HCPCS: 36415; 36591; 70450; 71045; 74177; 80053; 81003; 81015; 82550; 83690; 84484; 85025; 85610; 85730; 87086; 93005; 96361; 96374; 96375; 99285; 99291; J2405

== ENCOUNTER 2018-08-21 18:09 | Emergency (ER) | payer MEDICARE, OTHER, SELFPAY ==
[2018-01-02 03:25] VITALS: BMI 21.6
[2018-08-21 18:18] VITALS: BP 136/77; PULSE 80; RESP 17; TEMP 36.4; O2SAT 96
--- NOTE | 2018-08-21 18:34 | ED_ITS ---
HPI - Abdominal Pain General Chief Complaint: Abdominal Pain Stated Complaint: Constipation, UTI Time Seen by Provider: 08/21/18 18:34 Source: family Mode of arrival: ambulatory Limitations: other (Dementia) History of Present Illness HPI narrative: 82-year-old female who lives at home with her daughter brought in by her daughter. The daughter is at bedside and provided all of the HPI and review of systems. The daughter states that patient has been complaining of lower abdominal pain. Daughter states that over the past week they have been noticing some leakage from the rectum. The daughter states that has been a small amount. They thought that she was having diarrhea so they started her on Imodium. They now states that she has not had a bowel movement. Daughter states that she seems like she is in quite a bit of discomfort. Daughter is also concerned about a urinary tract infection. Daughter is unsure last time she urinated. She has had urinary tract infections in the past. Related Data Home Medications Medication Instructions Recorded Confirmed metoprolol succinate [Toprol XL] 75 mg PO DAILY #0 02/14/17 07/11/18 Xarelto 15 mg PO QPM 01/02/18 07/11/18 calcitonin (salmon) 1 spray INTRANASAL DAILY 02/15/18 07/11/18 calcium carbonate [Calcium 500] 1 tab PO BIDWM 07/11/18 07/11/18 cholecalciferol (vitamin D3) 2,000 unit PO DAILY 07/11/18 07/11/18 [Vitamin D3] donepezil 10 mg PO DAILY 07/11/18 07/11/18 levothyroxine 112 mcg PO DAILY 07/11/18 07/11/18 telmisartan [Micardis] 20 mg PO DAILY 07/11/18 07/11/18 tramadol 50 mg PO TID PRN 07/11/18 07/11/18 Previous Rx's Medication Instructions Recorded alendronate 70 mg PO We@0600 #20 tab 01/06/18 sennosides [senna] 17.2 mg PO DAILY PRN #30 tab 01/06/18 nitrofurantoin monohyd/m-cryst 100 mg PO Q12H 5 Days #10 cap 08/21/18 [Macrobid] Allergies Allergy/AdvReac Type Severity Reaction Status Date / Time atenolol [ATENOLOL] AdvReac Intermediate dizzyness Verified 02/15/18 10:29 Review of Systems Review of Systems Provided by daughter Constitutional Denies fever(s) and Reports frequent falls Respiratory Denies cough Gastrointestinal Gastrointestinal: Reports abdominal pain, Reports change in bowel habits and Reports constipation Integumentary/Breasts Denies rash Neurologic Reports behavioral changes and Reports frequent falls Psychiatric Reports behavioral changes Hematologic/Lymphatic Comments: On Ximena [facility] Medical History Hypertension (Acute) Atrial fibrillation (Acute) Hypothyroidism (Acute) UTI (urinary tract infection), bacterial (Acute) Social History household members: none Smoking Status: Former smoker alcohol intake: current additional social history: She lives at home with family. Exam Initial Vital Signs Initial Vital Signs: Vital Signs Temperature 97.6 F 08/21/18 18:18 Pulse Rate 80 08/21/18 18:18 Respiratory Rate 17 08/21/18 18:18 Blood Pressure 136/77 08/21/18 18:18 Pulse Oximetry 96 08/21/18 18:18 Const General: comfortable and well groomed Orientation: awake, not oriented to person, not oriented to place, not oriented to time and confused HENMT Head: normal to inspection and normocephalic Resp Effort & Inspection: normal respiratory effort Cardio Rate: regular rate GI Inspection: non-distended Palpation: No firm and tender (Does seem to have tenderness to palpation in the lower abdomen) Skin Lesions: no lesions Rashes: no rashes Neuro Other: At baseline per daughter Extrem General: normal to inspection and capillary refill normal Psych Appearance: grossly normal and well kempt Scores GCS [place] coma scale eye opening: Spontaneous [place] coma scale verbal response: Confused Jed coma scale motor response: Obey commands [place] coma scale total score: 14 Course Orders Ordered: ED Orders 08/21/18 18:00 Complete Blood Count AUTO DIFF Stat Comprehensive Metabolic Panel Stat Lipase Stat 08/21/18 18:55 CT abdomen pelvis w con Stat 08/21/18 19:10 Lactate (Lactic Acid) Stat 08/21/18 19:14 CT head/brain wo con Stat 08/21/18 19:51 Urinalysis and Microscopic Stat Urine Culture Stat Discontinued Medications Sodium Chloride (Normal Saline 0.9%) 1,000 mls @ 1,000 mls/hr IV BOLUS ONE Stop: 08/21/18 19:53 Last Infusion: 08/21/18 21:04 Dose: 0 mls/hr Admin: 08/21/18 19:40 Dose: 1,000 mls/hr Nitrofurantoin Macrocrystals (Macrobid 100 Mg Capsule) 100 mg PO NOW ONE Stop: 08/21/18 20:53 Last Admin: 08/21/18 21:04 Dose: 100 mg Sodium Biphosphate/Sodium Phosphate (Fleet Enema) 1 each DE NOW ONE Stop: 08/21/18 20:53 Last Admin: 08/21/18 21:04 Dose: 1 each Vital Signs - 8 hr 08/21/18 18:18 08/21/18 20:42 08/21/18 21:34 Temperature 97.6 F Pulse Rate 80 68 55 L Respiratory Rate 17 17 16 Blood Pressure Blood Pressure [Left Arm] 136/77 130/77 136/90 Pulse Oximetry 96 99 100 08/22/18 00:15 Temperature Pulse Rate 85 Respiratory Rate 16 Blood Pressure 135/56 L Blood Pressure [Left Arm] Pulse Oximetry 95 MDM - Abdominal Pain Lab Data Attestation: I reviewed the patient's lab results. Result diagrams: 08/21/18 18:00 08/21/18 18:00 Lab Results 08/21/18 08/21/18 08/21/18 Range/Units 18:00 18:00 19:10 WBC 11.1 H (4.5-11.0) X10^3/uL RBC 4.40 (4.0-5.2) X10^6/uL Hgb 13.0 (12.0-16.0) g/dL Hct 39.9 (36-46) % MCV 90.6 (80-100) fL MCH 29.5 (26-34) PG MCHC 32.6 (30-36) % RDW 15.3 H (11.6-14.8) % Plt Count 358 (150-400) X10^3/uL Neut % (Auto) 74.6 (50-75) % Lymph % (Auto) 17.8 L (25-40) % [place] % (Auto) 6.8 (3-14) % Eos % (Auto) 0.3 L (2-4) % Baso % (Auto) 0.5 (0-2) % Neut # (Auto) 8300 H (8902-7156) /uL Lymph # (Auto) 2000 (7503-5954) /uL [place] # (Auto) 800 (0-900) /uL Eos # (Auto) 0 (0-450) /uL Baso # (Auto) 100 (0-100) /uL Sodium 140 (137-145) mmol/L Potassium 5.2 H (3.4-5.1) mmol/L Chloride 104 (98-107) mmol/L Carbon Dioxide 24 (22-32) mmol/L BUN 46 H (7-17) mg/dL Creatinine 1.40 H (0.52-1.04) mg/dL Estimated GFR 36.2 L (>60) mL/min BUN/Creatinine Ratio 32.9 H (6-22) Glucose 129 H (80-110) mg/dL Lactate 1.2 (0.7-2.1) mmol/L Calcium 10.3 H (8.4-10.2) mg/dL Total Bilirubin 0.5 (0.2-1.3) mg/dL AST 29 (14-36) IU/L ALT 19 (9-52) IU/L Alkaline Phosphatase 106 (38-126) U/L Total Protein 7.6 (6.3-8.2) g/dL Albumin 4.3 (3.5-5.0) g/dL Globulin 3.3 (1.7-4.1) g/dL Albumin/Globulin Ratio 1.3 (1.0-2.8) Lipase 148 (23-300) U/L Urine Color Urine Appearance Urine pH (4.5-8.0) Ur Specific [place] (1.000-1.035) Urine Protein (Negative) Urine Glucose (UA) (Negative) g/dL Urine Ketones (NEGATIVE) Urine Occult Blood (Negative) Urine Nitrate (Negative) Urine Bilirubin (NEGATIVE) Urine Urobilinogen (0.2) E.U./dL Ur Leukocyte Esterase (NEGATIVE) Urine RBC (0-5/HPF) Urine WBC (0-5/HPF) Urine Bacteria (None) Ur Culture Indicated? 08/21/18 Range/Units 19:51 WBC (4.5-11.0) X10^3/uL RBC (4.0-5.2) X10^6/uL Hgb (12.0-16.0) g/dL Hct (36-46) % MCV (80-100) fL MCH (26-34) PG MCHC (30-36) % RDW (11.6-14.8) % Plt Count (150-400) X10^3/uL Neut % (Auto) (50-75) % Lymph % (Auto) (25-40) % [place] % (Auto) (3-14) % Eos % (Auto) (2-4) % Baso % (Auto) (0-2) % Neut # (Auto) (8747-4427) /uL Lymph # (Auto) (2150-2284) /uL [place] # (Auto) (0-900) /uL Eos # (Auto) (0-450) /uL Baso # (Auto) (0-100) /uL Sodium (137-145) mmol/L Potassium (3.4-5.1) mmol/L Chloride (98-107) mmol/L Carbon Dioxide (22-32) mmol/L BUN (7-17) mg/dL Creatinine (0.52-1.04) mg/dL Estimated GFR (>60) mL/min BUN/Creatinine Ratio (6-22) Glucose (80-110) mg/dL Lactate (0.7-2.1) mmol/L Calcium (8.4-10.2) mg/dL Total Bilirubin (0.2-1.3) mg/dL AST (14-36) IU/L ALT (9-52) IU/L Alkaline Phosphatase (38-126) U/L Total Protein (6.3-8.2) g/dL Albumin (3.5-5.0) g/dL Globulin (1.7-4.1) g/dL Albumin/Globulin Ratio (1.0-2.8) Lipase (23-300) U/L Urine Color [place] Urine Appearance Sl cloudy Urine pH 5.0 (4.5-8.0) Ur Specific [place] 1.020 (1.000-1.035) Urine Protein 1+ H (Negative) Urine Glucose (UA) Negative (Negative) g/dL Urine Ketones Negative (NEGATIVE) Urine Occult Blood 3+ H (Negative) Urine Nitrate Positive H (Negative) Urine Bilirubin Negative (NEGATIVE) Urine Urobilinogen 1.0 (0.2) E.U./dL Ur Leukocyte Esterase 1+ H (NEGATIVE) Urine RBC 10-30/hpf H (0-5/HPF) Urine WBC 30-100/hpf H (0-5/HPF) Urine Bacteria Many (>30) H (None) Ur Culture Indicated? Specimen cultured Imaging Data CT scan - head: Radiologist's impression: Patient: Samira Encinas JMR#: [id number] : 8Acct:[id number] Age/Sex: 82 / FDate of Service: 08/21/18 Loc: ED Accession Number: [id number] Procedure: CT head/brain wo con Ordering Provider: Brice Schultz D.O. PROCEDURE: CT HEAD/BRAIN WO CON INDICATIONS: Fell unwitnessed on Xarelto TECHNIQUE: Noncontrast 4.5 mm thick angled axial sections acquired from the foramen magnum to the vertex, with coronal and sagittal reformats. For radiation dose reduction, the following was used: automated exposure control, adjustment of mA and/or kV according to patient size. COMPARISON: Merged With [facility], CT, CT HEAD/BRAIN WO CON, 07/11/2018, 17:46. FINDINGS: Image quality: Excellent. CSF spaces: Basal cisterns are patent. No extra-axial fluid collections. The ventricles are symmetric in size and shape. Brain: Continued evolution of moderate sized right inferior cerebellar hemispheric infarct with further hypodensity and demarcation of the margins. Coarse bilateral basal ganglia calcification, left more extensive than right. Adjacent chronic hypodensity and mild left lateral ventricular ex vacuo dilatation. No intracranial bleeds or masses. There is cerebral volume loss for age, with resultant ventricular and sulcal prominence. There are moderate to severe periventricular and deep white matter chronic small vessel ischemic changes. There is intracranial internal carotid artery atherosclerosis. Skull and face: Calvarium and visualized facial bones appear intact, without suspicious lesions. Sinuses: Visualized sinuses and mastoids are clear. IMPRESSION: 1. No evidence of acute hemorrhage. Interval resolution of prior subtle subdural hematoma. 2. Evolution of moderate size right cerebellar hemispheric infarct since the previous study. 3. Moderate to severe chronic microvascular ischemic changes and evidence of small left basal ganglia infarct resulting in focal ex vacuo lateral ventricular dilatation. Dictated by: Kira Bazan M.D. on 08/21/2018 at 20:32 Approved by: Kira Bazan M.D. on 08/21/2018 at 20:40 CT scan - abdomen: Radiologist's impression: Patient: Samira Encinas JMR#: [id number] : 1936Acct:[id number] Age/Sex: 82 / FDate of Service: 08/21/18 Loc: ED Accession Number: [id number] Procedure: CT abdomen pelvis w con Ordering Provider: Brice Schultz D.O. PROCEDURE: CT ABDOMEN PELVIS W CON INDICATIONS: abd pain TECHNIQUE: After the administration of oral and intravenous contrast, 5 mm thick sections acquired from the diaphragms to the symphysis. 5 mm thick coronal and sagittal reformats were performed. For radiation dose reduction, the following was used: automated exposure control, adjustment of mA and/or kV according to patient size. COMPARISON: Merged With [facility], CT, CT ABDOMEN PELVIS W CON, 07/11/2018, 16:10. FINDINGS: Image quality: Excellent. ABDOMEN: Lung bases: Cardiomegaly. Bibasilar fibrotic changes. Solid organs: Liver is normal in size and enhancement. Gallbladder is normal. Biliary system is non-dilated. Pancreas enhances normally. 2 tiny pancreatic tail cysts, stable. Spleen is normal in size and enhancement. No adrenal nodules. Kidneys are normal in size and enhancement, without hydronephrosis. Peritoneum and bowel: Significant quantity rectal stool. Moderate retained solid stool throughout the rest of the colon. Stomach, small bowel, and colon loops are normal in caliber and wall thickness. No free fluid or air. Nodes and vessels: No retroperitoneal or mesenteric adenopathy. Aorta and inferior vena cava are normal in caliber. Heavy abdominal aortic atherosclerosis. Miscellaneous: No ventral hernias. PELVIS: Genitourinary: Significant distention of the urinary bladder. Normal bladder wall thickness.. Miscellaneous: No inguinal hernias or adenopathy. Bones: Diffuse demineralization. No suspicious bony lesions. Severe T11 compression fracture, chronic.. IMPRESSION: 1. Significant rectal obstipation. 2. Urinary retention. No hydronephrosis. 3. Chronic cardiomegaly. 4. Tiny pancreatic tail cysts. Consider CT in 6-12 months for followup. 5. Chronic T11 compression fracture. Dictated by: Kira Bazan M.D. on 08/21/2018 at 20:26 Approved by: Kira Bazan M.D. on 08/21/2018 at 20:32 [facility] Narrative Medical decision making narrative: Initial bladder scan shows just over 200 cc in the bladder however the patient has not urinated. When a Flores catheter was placed significant amount of urine returned. It was dark in color. His nitrite positive. Consistent with urinary tract infection. CT scan the abdomen is performed secondary to this history of constipation. There are no bowel obstructions however does show significant amount of stool backup. I discussed this with the daughter. We initially tried an enema which did not help and then we proceeded to manual disimpaction which returned a fair amount of stool. Discuss the urinary catheter in the urinary tract infection with a daughter. She did take her 1st dose of Macrobid here in the ER. Was sent home with a prescription for this. We also sent her home with a Flores in place secondary to the urinary retention. The head CT was performed because the daughter stated that the patient fell a couple days ago. She is on Xarelto. Shows no new pathology. No other injuries were found from the event. The patient is at baseline mental status per the daughter. Had a long discussion with the daughter regarding the patient. Informed her that she needed to talk with the patient's primary doctor about follow-up as far as the urinary catheter potentially seeing a urologist. We discussed return precautions with regard to the urinary tract infection. Informed the daughter that she should think about talking with the primary doctor about options with regard to home health and potential other living arrangements to include a long term. Patient's daughter expressed understanding and agreement with plan. Discharge Plan Departure Patient Disposition: Home Clinical Impression: Acute urinary retention Constipation Qualifiers: Constipation type: unspecified constipation type Qualified Code(s): K59.00 - Constipation, unspecified Urinary tract infection Qualifiers: Urinary tract infection type: acute cystitis Hematuria presence: without hematuria Qualified Code(s): N30.00 - Acute cystitis without hematuria Discharge Date/Time: 08/22/18 00:15 Interventions: ED Discharge Assessment Last Done: 08/22/18 00:15 Instructions: Constipation (Alternative Therapy), How to Care for Your Flores Catheter -- Female Activity Restrictions/Additional Instructions: Take the antibiotics as directed. Recommend that you call Dr. Brewer's office tomorrow for a follow-up. Return to the emergency department for any new or worsening symptoms Prescriptions: New nitrofurantoin monohyd/m-cryst [Macrobid] 100 mg capsule 100 mg PO Q12H 5 Days Qty: 10 RF: 0 No Action metoprolol succinate [Toprol XL] 25 MG tablet extended release 24 hr 75 mg PO DAILY Qty: 0 RF: 0 Xarelto 15 mg Tablet 15 mg PO QPM RF: 0 sennosides [senna] 8.6 mg Tablet 17.2 mg PO DAILY PRN (Reason: Constipation) Qty: 30 RF: 0 alendronate 70 mg Tablet 70 mg PO We@0600 Qty: 20 RF: 0 calcitonin (salmon) 200 unit/actuation [place],Non-Aerosol 1 spray Intranasal DAILY RF: 0 donepezil 10 mg tablet 10 mg PO DAILY RF: 0 levothyroxine 112 mcg tablet 112 mcg PO DAILY RF: 0 tramadol 50 mg tablet 50 mg PO TID PRN (Reason: pain) RF: 0 calcium carbonate [Calcium 500] 500 mg calcium (1,250 mg) Tablet 1 tab PO BIDWM RF: 0 telmisartan [Micardis] 20 mg tablet 20 mg PO DAILY RF: 0 cholecalciferol (vitamin D3) [Vitamin D3] 2,000 unit Capsule 2,000 unit PO DAILY RF: 0 Referrals: Argentina Brewer MD [Primary Care Provider] -
--- NOTE | 2018-08-21 18:55 | DI.CT.S_ITS ---
PROCEDURE: CT ABDOMEN PELVIS W CON INDICATIONS: abd pain TECHNIQUE: After the administration of oral and intravenous contrast, 5 mm thick sections acquired from the diaphragms to the symphysis. 5 mm thick coronal and sagittal reformats were performed. For radiation dose reduction, the following was used: automated exposure control, adjustment of mA and/or kV according to patient size. COMPARISON: [facility], CT, CT ABDOMEN PELVIS W CON, 07/11/2018, 16:10. FINDINGS: Image quality: Excellent. ABDOMEN: Lung bases: Cardiomegaly. Bibasilar fibrotic changes. Solid organs: Liver is normal in size and enhancement. Gallbladder is normal. Biliary system is non-dilated. Pancreas enhances normally. 2 tiny pancreatic tail cysts, stable. Spleen is normal in size and enhancement. No adrenal nodules. Kidneys are normal in size and enhancement, without hydronephrosis. Peritoneum and bowel: Significant quantity rectal stool. Moderate retained solid stool throughout the rest of the colon. Stomach, small bowel, and colon loops are normal in caliber and wall thickness. No free fluid or air. Nodes and vessels: No retroperitoneal or mesenteric adenopathy. Aorta and inferior vena cava are normal in caliber. Heavy abdominal aortic atherosclerosis. Miscellaneous: No ventral hernias. PELVIS: Genitourinary: Significant distention of the urinary bladder. Normal bladder wall thickness.. Miscellaneous: No inguinal hernias or adenopathy. Bones: Diffuse demineralization. No suspicious bony lesions. Severe T11 compression fracture, chronic.. IMPRESSION: 1. Significant rectal obstipation. 2. Urinary retention. No hydronephrosis. 3. Chronic cardiomegaly. 4. Tiny pancreatic tail cysts. Consider CT in 6-12 months for followup. 5. Chronic T11 compression fracture. Dictated by: Kira Bazan M.D. on 08/21/2018 at 20:26 Approved by: Kira Bazan M.D. on 08/21/2018 at 20:32
[2018-08-21 19:03] LABS: Add Manual Diff / Slide Review NO; Basophils Absolute Auto 100 /uL (0-100); Basophils Percent Auto 0.5 % (0-2); Eosinophils Absolute Auto 0 /uL (0-450); Eosinophils Percent Auto 0.3 % (2-4); Hematocrit 39.9 % (36-46); Lymphocytes Absolute Auto 2000 /uL (1100-4500); Lymphocytes Percent Auto 17.8 % (25-40); Mean Corpuscular HGB Conc 32.6 % (30-36); Mean Corpuscular Hemoglobin 29.5 PG (26-34); Mean Corpuscular Volume 90.6 fL (80-100); Monocytes Absolute Auto 800 /uL (0-900); Monocytes Percent Auto 6.8 % (3-14); Neutrophils Absolute Auto 8300 /uL (1500-7000); Neutrophils Percent Auto 74.6 % (50-75); Platelet Count 358 X10^3/uL (150-400); Red Cell Distribution Width 15.3 % (11.6-14.8); White Blood Cell Count 11.1 X10^3/uL (4.5-11.0)
[2018-08-21 19:08] LABS: Alanine Aminotransferase 19 IU/L (9-52); Albumin 4.3 g/dL (3.5-5.0); Albumin Globulin Ratio 1.3 (1.0-2.8); Alkaline Phosphatase 106 U/L (38-126); Aspartate Aminotransferase 29 IU/L (14-36); BUN Creatinine Ratio 32.9 (6-22); Bilirubin Total 0.5 mg/dL (0.2-1.3); Blood Urea Nitrogen 46 mg/dL (7-17); Calcium 10.3 mg/dL (8.4-10.2); Carbon Dioxide 24 mmol/L (22-32); Chloride 104 mmol/L (98-107); Estimated Glomerular Filt Rate 36.2 mL/min (>60); Globulin 3.3 g/dL (1.7-4.1); Glucose 129 mg/dL (80-110); HEMOLYSIS < 15 (0-50); Lipase 148 U/L (23-300); Potassium 5.2 mmol/L (3.4-5.1); Sodium 140 mmol/L (137-145); Total Protein 7.6 g/dL (6.3-8.2)
--- NOTE | 2018-08-21 19:14 | DI.CT.S_ITS ---
PROCEDURE: CT HEAD/BRAIN WO CON INDICATIONS: Fell unwitnessed on Xarelto TECHNIQUE: Noncontrast 4.5 mm thick angled axial sections acquired from the foramen magnum to the vertex, with coronal and sagittal reformats. For radiation dose reduction, the following was used: automated exposure control, adjustment of mA and/or kV according to patient size. COMPARISON: [facility], CT, CT HEAD/BRAIN WO CON, 07/11/2018, 17:46. FINDINGS: Image quality: Excellent. CSF spaces: Basal cisterns are patent. No extra-axial fluid collections. The ventricles are symmetric in size and shape. Brain: Continued evolution of moderate sized right inferior cerebellar hemispheric infarct with further hypodensity and demarcation of the margins. Coarse bilateral basal ganglia calcification, left more extensive than right. Adjacent chronic hypodensity and mild left lateral ventricular ex vacuo dilatation. No intracranial bleeds or masses. There is cerebral volume loss for age, with resultant ventricular and sulcal prominence. There are moderate to severe periventricular and deep white matter chronic small vessel ischemic changes. There is intracranial internal carotid artery atherosclerosis. Skull and face: Calvarium and visualized facial bones appear intact, without suspicious lesions. Sinuses: Visualized sinuses and mastoids are clear. IMPRESSION: 1. No evidence of acute hemorrhage. Interval resolution of prior subtle subdural hematoma. 2. Evolution of moderate size right cerebellar hemispheric infarct since the previous study. 3. Moderate to severe chronic microvascular ischemic changes and evidence of small left basal ganglia infarct resulting in focal ex vacuo lateral ventricular dilatation. Dictated by: Kira Bazan M.D. on 08/21/2018 at 20:32 Approved by: Kira Bazan M.D. on 08/21/2018 at 20:40
--- NOTE | 2018-08-21 19:20 | PC.NURSE ---
Speaching with daughter, states daughter's spouse found patient on floor last night, unknown if pt hit head. Takes xerelto.
[2018-08-21 19:26] LABS: Lactate (Lactic Acid) 1.2 mmol/L (0.7-2.1)
[2018-08-21] MEDS: SODIUM CHLORIDE 0.9% 1,000 ML 1000 ML IV (19:40)
--- NOTE | 2018-08-21 20:23 | PC.NURSE ---
Daughter reports pt released from [facility] [place] on Wednesday. Since Wednesday, reports had multiple episodes of diarrhea and daughter gave patient 2 doses of imodium. Now pt with constipation. Able to see stool from rectum.
[2018-08-21 20:29] LABS: Appearance Urine UA SL CLOUDY; Bilirubin Urine UA NEGATIVE (NEGATIVE); Color Urine UA ORANGE; Glucose Urine UA NEGATIVE (Negative); Ketones Urine UA NEGATIVE (NEGATIVE); Leukocyte Esterase Urine UA 1+ (NEGATIVE); Nitrite Urine UA POSITIVE (Negative); Occult Blood Urine UA 3+ (Negative); Protein Urine UA 1+ (Negative)
[2018-08-21 20:39] LABS: Bacteria Urine Many (>30); RBC Urine 10-30/HPF (0-5/HPF); WBC Urine 30-100/HPF (0-5/HPF)
[2018-08-21 20:40] LABS: Culture Indicated Urine Specimen Cultured
[2018-08-21 20:42] VITALS: BP 130/77; PULSE 68; RESP 17; O2SAT 99
[2018-08-21] MEDS: NITROFURANTOIN ER 100 MG CAPSULE PO (21:04)
[2018-08-21] MEDS: FLEETS ENEMA 1 EACH PR (21:04)
[2018-08-21 21:34] VITALS: BP 136/90; PULSE 55; RESP 16; O2SAT 100
--- NOTE | 2018-08-21 23:08 | PC.NURSE ---
Assisted provider with dis impaction, Pt continued to have loose stool after procedure. Required bed bath and changed brief x2 in 30 min time frame. Pt fought initially but then followed directions during cleaning. Placed barrier cream on ron area.
--- NOTE | 2018-08-21 23:29 | PC.NURSE ---
Provider aware of iv removal. Provider stated ok to not restart IV at this time.
[2018-08-22 00:15] VITALS: BP 135/56; PULSE 85; RESP 16; O2SAT 95
== END 2018-08-22 00:15 | disposition home or self-care (01) ==
PROVIDERS: Emergency Provider Emergency Medicine; PCP Internal Medicine
DX: K59.00 Constipation, unspecified (principal); N30.00 Acute cystitis without hematuria; W19.XXXA Unspecified fall, initial encounter; Z79.01 Long term (current) use of anticoagulants
CPT/HCPCS: 36415; 36591; 51701; 51798; 70450; 74177; 80053; 81001; 83605; 83690; 85025; 87077; 87086; 87147; 87186; 96360; 99284; Q9967

== ENCOUNTER 2018-08-31 18:03 | Emergency (ER) | payer MEDICARE, OTHER, SELFPAY ==
[2018-01-02 03:25] VITALS: BMI 21.6
[2018-08-31 18:00] VITALS: BP 123/74; PULSE 70; RESP 13; TEMP 36.7; O2SAT 97
--- NOTE | 2018-08-31 18:19 | DI.RAD.S_ITS ---
PROCEDURE: XR CHEST 1V INDICATIONS: chest pain TECHNIQUE: One view of the chest was acquired. COMPARISON: [facility], CR, XR CHEST 1V, 07/11/2018, 14:34. FINDINGS: Surgical changes and devices: None. Lungs and pleura: Lungs are clear. There is hyperinflation of the lungs with flattening of the hemidiaphragms compatible with COPD. No pleural effusions or pneumothorax. Mediastinum: Mediastinal contours appear normal. Heart size is normal. Bones and chest wall: No suspicious bony lesions. Overlying soft tissues appear unremarkable. IMPRESSION: 1. No acute cardiopulmonary disease. 2. Findings compatible COPD demonstrated. Dictated by: Franc Louis M.D. on 08/31/2018 at 20:51 Approved by: Franc Louis M.D. on 08/31/2018 at 20:53
[2018-08-31 18:29] LABS: INR 1.2 (0.9-1.3); Prothrombin Time 14.3 SECONDS (10.1-12.7)
[2018-08-31 18:30] LABS: Add Manual Diff / Slide Review NO; Basophils Absolute Auto 100 /uL (0-100); Basophils Percent Auto 0.6 % (0-2); Eosinophils Absolute Auto 400 /uL (0-450); Eosinophils Percent Auto 3.7 % (2-4); Hematocrit 40.5 % (36-46); Hemoglobin 13.1 g/dL (12.0-16.0); Lymphocytes Absolute Auto 3000 /uL (1100-4500); Lymphocytes Percent Auto 30.3 % (25-40); Mean Corpuscular HGB Conc 32.4 % (30-36); Mean Corpuscular Hemoglobin 29.5 PG (26-34); Mean Corpuscular Volume 91.1 fL (80-100); Monocytes Absolute Auto 600 /uL (0-900); Monocytes Percent Auto 6.2 % (3-14); Neutrophils Absolute Auto 5800 /uL (1500-7000); Neutrophils Percent Auto 59.2 % (50-75); Platelet Count 336 X10^3/uL (150-400); Red Blood Cell Count 4.45 X10^6/uL (4.0-5.2); Red Cell Distribution Width 16.3 % (11.6-14.8); White Blood Cell Count 9.7 X10^3/uL (4.5-11.0)
[2018-08-31 18:31] LABS: PTT Partial Thromboplastin Tim 31 SECONDS (26.4-36.2)
[2018-08-31 18:32] VITALS: BP 121/62; PULSE 71; RESP 12; O2SAT 96
[2018-08-31 18:33] LABS: Alanine Aminotransferase 187 IU/L (9-52); Albumin Globulin Ratio 1.1 (1.0-2.8); Alkaline Phosphatase 480 U/L (38-126); Aspartate Aminotransferase 231 IU/L (14-36); BUN Creatinine Ratio 36.2 (6-22); Blood Urea Nitrogen 47 mg/dL (7-17); Carbon Dioxide 24 mmol/L (22-32); Chloride 103 mmol/L (98-107); Creatine Kinase < 20 U/L (30-135); Estimated Glomerular Filt Rate 39.4 mL/min (>60); Globulin 3.5 g/dL (1.7-4.1); Glucose 122 mg/dL (80-110); HEMOLYSIS < 15 (0-50); Lipase 105 U/L (23-300); Potassium 4.4 mmol/L (3.4-5.1); Sodium 138 mmol/L (137-145); Total Protein 7.5 g/dL (6.3-8.2)
[2018-08-31 18:44] LABS: Troponin I < 0.012 ng/mL (0.01-0.034)
--- NOTE | 2018-08-31 18:49 | ED_ITS ---
HPI - Arrhythmia/Palpitations General Chief Complaint: Arrhythmia/Palpitations Stated Complaint: Syncope Time Seen by Provider: 08/31/18 18:05 Source: patient, family and EMS Mode of arrival: EMS Limitations: altered mental status History of Present Illness HPI narrative: 82-year-old female nonsmoker with history of dementia and atrial fibrillation presents by EMS with multiple family members for evaluation of an episode of weakness and near-syncope. The patient lives at home and has significant access to care. She recently had a urinary catheter placed recently and actually pulled out last night. She has had a slightly decreased appetite over the course of the day. She has had some back pain off and on ever since a fall last summer which resulted in a compression fracture. She was given an Ultram earlier in the day and vomited within 10 minutes. About 6 hours after that episode, and just prior to arrival the patient was walking and began to feel a bit lightheaded. She has a caregiver at home who was walking with her and helped keep her study. She did not have a syncopal episode and did not fall to the ground. EMS was called and on arrival they found her in a rapid AFib at 1:30 a.m., she was given Cardizem and by arrival here had slowed to the 80s and was at her baseline. MD complaint: rapid heart beat and heart racing Onset (ago): unknown Duration: now resolved Severity: mild Arrhythmia history: atrial fibrillation Associated symptoms: near-syncope Treatments prior to arrival: calcium channel erin Related Data Home Medications Medication Instructions Recorded Confirmed Xarelto 15 mg PO QAM 01/02/18 08/31/18 cholecalciferol (vitamin D3) 2,000 unit PO DAILY 07/11/18 08/31/18 [Vitamin D3] tramadol 50 mg PO TID PRN 07/11/18 08/31/18 amlodipine 5 mg PO DAILY 08/31/18 08/31/18 atorvastatin 20 mg PO DAILY 08/31/18 08/31/18 calcium carbonate-vitamin D2 1 tab PO BID 08/31/18 08/31/18 [Oyster Shell Calcium-Vit D2] levothyroxine 125 mg PO DAILY 08/31/18 08/31/18 Previous Rx's Medication Instructions Recorded sennosides [senna] 17.2 mg PO DAILY PRN #30 tab 01/06/18 clindamycin HCl 150 mg PO Q6H 7 Days #28 cap 08/31/18 Allergies Allergy/AdvReac Type Severity Reaction Status Date / Time atenolol [ATENOLOL] AdvReac Intermediate dizzyness Verified 02/15/18 10:29 Review of Systems Review of Systems Patient is pleasantly confused and all items have HPI and review of systems are obtained from family members and caregiver Constitutional Denies chills, Denies fever(s), Denies lethargy and Reports weakness Eyes Denies change in vision, Denies eye discharge, Denies irritation and Denies loss of vision ENT Ears, Nose, Mouth, and Throat: Denies change in voice, Denies neck pain and Denies sore throat Cardiovascular Denies chest pain, Denies irregular heart rhythm, Reports lightheadedness, Denie s palpitations, Denies dyspnea, Denies dyspnea on exertion and Denies orthopnea Respiratory Denies cough, Denies dyspnea, Denies dyspnea on exertion and Denies wheezing Gastrointestinal Gastrointestinal: Denies abdominal pain, Denies change in bowel habits, Denies diarrhea, Denies nausea and Denies vomiting Genitourinary Denies hematuria, Denies flank pain, Denies urinary incontinence and Denies urinary urgency Musculoskeletal Denies neck pain Integumentary/Breasts Denies pruritus, Denies erythema, Denies rash and Denies wounds Neurologic Denies confusion, Denies loss of vision and Reports weakness Psychiatric Denies anxiety, Denies confusion, Denies depression, Denies homicidal ideation and Denies suicidal ideation Endocrine Denies palpitations Hematologic/Lymphatic Denies easy bruising Allergic/Immunologic Denies wheezing [facility] Medical History Hypertension (Acute) Atrial fibrillation (Acute) Hypothyroidism (Acute) UTI (urinary tract infection), bacterial (Acute) Surgical History History of tonsillectomy (Acute) Previous section (Acute) Family History Mother No problems noted. Father No problems noted. Brother No problems noted. Brother No problems noted. Social History household members: none Smoking Status: Former smoker alcohol intake: current additional social history: She lives at home with family. Family History Mother No problems noted. Father No problems noted. Brother No problems noted. Brother No problems noted. Social History household members: none Smoking Status: Former smoker alcohol intake: current additional social history: She lives at home with family. Exam Narrative Exam Narrative: GENERAL: Pleasantly confused 82-year-old female is resting comfortably with no active complaints HEAD: Atraumatic. Normocephalic. No temporal or scalp tenderness. EYES: Pupils equal round and reactive. Extraocular motions intact. No scleral icterus. No injection or drainage. ENT: Nose without bleeding, purulent drainage or septal hematoma. Throat without erythema, tonsillar hypertrophy or exudate. Uvula midline. Airway patent. NECK: Trachea midline. No JVD or lymphadenopathy. Supple, nontender, no meningeal signs. CARDIOVASCULAR: Regular rate and irregular rhythm without murmurs, gallops, or rubs. RESPIRATORY: Clear to auscultation. Breath sounds equal bilaterally. No wheezes, rales, or rhonchi. GASTROINTESTINAL: Abdomen soft, non-tender, nondistended. No hepato-splenomega ly, or palpable masses. No guarding. EXTREMITIES: No clubbing, cyanosis, or edema. No joint tenderness, effusion, or edema noted. BACK: Nontender without deformity or crepitance. No flank tenderness. SKIN: No rash or erythema. Initial Vital Signs Initial Vital Signs: Vital Signs Temperature 98.1 F 08/31/18 18:00 Pulse Rate 70 08/31/18 18:00 Respiratory Rate 13 08/31/18 18:00 Blood Pressure 123/74 08/31/18 18:00 Pulse Oximetry 97 08/31/18 18:00 Course Orders Ordered: ED Orders 08/31/18 18:08 Complete Blood Count AUTO DIFF Stat Comprehensive Metabolic Panel Stat Lipase Stat Partial Thromboplastin Time Stat Prothrombin Time INR Stat Troponin & CK Cardiac Panel Stat 08/31/18 18:19 XR chest 1V Stat EKG-12 Lead Stat Vital Signs - 8 hr 08/31/18 19:45 08/31/18 20:00 08/31/18 20:47 Pulse Rate 99 H 88 84 Respiratory Rate 18 15 17 Blood Pressure 120/74 Blood Pressure [Right Arm] 143/67 H 134/78 Pulse Oximetry 100 100 100 MDM - Arrhythmia/Palpitations Lab Data Result diagrams: 08/31/18 18:08 08/31/18 18:08 Lab Results 08/31/18 08/31/18 08/31/18 Range/Units 18:08 18:08 18:08 WBC 9.7 (4.5-11.0) X10^3/uL RBC 4.45 (4.0-5.2) X10^6/uL Hgb 13.1 (12.0-16.0) g/dL Hct 40.5 (36-46) % MCV 91.1 (80-100) fL MCH 29.5 (26-34) PG MCHC 32.4 (30-36) % RDW 16.3 H (11.6-14.8) % Plt Count 336 (150-400) X10^3/uL Neut % (Auto) 59.2 (50-75) % Lymph % (Auto) 30.3 (25-40) % [place] % (Auto) 6.2 (3-14) % Eos % (Auto) 3.7 (2-4) % Baso % (Auto) 0.6 (0-2) % Neut # (Auto) 5800 (8617-7882) /uL Lymph # (Auto) 3000 (0822-3056) /uL [place] # (Auto) 600 (0-900) /uL Eos # (Auto) 400 (0-450) /uL Baso # (Auto) 100 (0-100) /uL PT 14.3 H (10.1-12.7) SECONDS INR 1.2 (0.9-1.3) APTT 31 D (26.4-36.2) SECONDS Sodium 138 (137-145) mmol/L Potassium 4.4 (3.4-5.1) mmol/L Chloride 103 (98-107) mmol/L Carbon Dioxide 24 (22-32) mmol/L BUN 47 H (7-17) mg/dL Creatinine 1.30 H (0.52-1.04) mg/dL Estimated GFR 39.4 L (>60) mL/min BUN/Creatinine Ratio 36.2 H (6-22) Glucose 122 H (80-110) mg/dL Calcium 10.0 (8.4-10.2) mg/dL Total Bilirubin 1.0 (0.2-1.3) mg/dL AST 231 H (14-36) IU/L ALT 187 H (9-52) IU/L Alkaline Phosphatase 480 H (38-126) U/L Total Creatine Kinase < 20 L (30-135) U/L CK-MB (CK-2) TNP CK-MB (CK-2) Rel Index TNP Troponin I < 0.012 (0.01-0.034) ng/mL Total Protein 7.5 (6.3-8.2) g/dL Albumin 4.0 (3.5-5.0) g/dL Globulin 3.5 (1.7-4.1) g/dL Albumin/Globulin Ratio 1.1 (1.0-2.8) Lipase 105 (23-300) U/L ECG Data Attestation: I personally reviewed and interpreted this ECG as follows: Prior ECG tracings: available for review Interpretation: AFib/flutter at 67 with left bundle branch block no significant change Discharge Plan Departure Patient Disposition: Home Clinical Impression: Near syncope, Acute UTI Atrial fibrillation Qualifiers: Atrial fibrillation type: paroxysmal Qualified Code(s): I48.0 - Paroxysmal atrial fibrillation Discharge Date/Time: 08/31/18 20:48 Interventions: ED Discharge Assessment Last Done: 08/31/18 20:47 Instructions: DI for Atrial Fibrillation Activity Restrictions/Additional Instructions: *You have been diagnosed with [ near syncope and atrial fibrillation ] *What to do: * continue to take medications as directed: Prescription electronically transmitted to the [facility] at your request *Follow up with your primary care provider in 2-3 days, call for an appointment. Let them know you were seen in the Emergency Department and that we ask that you be seen in follow up *Return to ER if you should have any new, worsening or concerning symptoms Prescriptions: New clindamycin HCl 150 mg capsule 150 mg PO Q6H 7 Days Qty: 28 RF: 0 No Action Xarelto 15 mg Tablet 15 mg PO QAM RF: 0 sennosides [senna] 8.6 mg Tablet 17.2 mg PO DAILY PRN (Reason: Constipation) Qty: 30 RF: 0 tramadol 50 mg tablet 50 mg PO TID PRN (Reason: pain) RF: 0 cholecalciferol (vitamin D3) [Vitamin D3] 2,000 unit Capsule 2,000 unit PO DAILY RF: 0 levothyroxine 125 mcg tablet 125 mg PO DAILY RF: 0 atorvastatin 20 mg Tablet 20 mg PO DAILY RF: 0 amlodipine 5 mg tablet 5 mg PO DAILY RF: 0 Oyster Shell Calcium-Vit D2 250 (625)-125 mg-unit Tablet 1 tab PO BID RF: 0 Referrals: Argentina Brewer MD [Primary Care Provider] -
[2018-08-31 19:02] VITALS: BP 124/62; PULSE 76; RESP 17; O2SAT 100
[2018-08-31 19:45] VITALS: BP 143/67; PULSE 99; RESP 18; O2SAT 100
[2018-08-31 20:00] VITALS: BP 134/78; PULSE 88; RESP 15; O2SAT 100
[2018-08-31 20:47] VITALS: BP 120/74; PULSE 84; RESP 17; O2SAT 100
== END 2018-08-31 20:48 | disposition home or self-care (01) ==
PROVIDERS: Emergency Provider Emergency Medicine; PCP Internal Medicine
DX: R55 Syncope and collapse (principal); N39.0 Urinary tract infection, site not specified; I48.91 Unspecified atrial fibrillation
CPT/HCPCS: 36415; 36591; 71045; 80053; 82550; 83690; 84484; 85025; 85610; 85730; 93005; 99283; 99285

== ENCOUNTER 2018-09-08 14:50 | Emergency (ER) | payer MEDICARE, OTHER, SELFPAY ==
[2018-01-02 03:25] VITALS: BMI 21.6
[2018-09-08] VITALS (8 sets, daily range): BP systolic 107–141; BP diastolic 68–106; PULSE 76–99; RESP 14–26; TEMP 36.4; O2SAT 96–98
--- NOTE | 2018-09-08 15:34 | ED.NEUROSD ---
HPI - Neuro Symptoms/Deficit General Chief Complaint: Neuro Symptoms/Deficit Stated Complaint: TIA Time Seen by Provider: 09/08/18 15:31 Source: patient, family (Daughter, caregiver and neighbor), EMS and old records reviewed Mode of arrival: EMS History of Present Illness HPI Narrative: This is an 82-year-old female comes to the emergency department with concern for TIA or stroke. Patient was at home today, she has had strokes in the past. She has recently returned home with a evaluation today by hospice. Family states that her primary care physician states they think she may have some kind of liver cancer but they are unclear exactly what stage or any other causes. They state was found with lab work. Patient was discharged home after having a stroke in July and being sent to [facility]. She had right-sided facial droop, word salad, and right sided weakness. She has had improvement but continues to have some issues with dementia as well as occasional difficulties with speech. she also developed UTI all there and has been on 2 or 3 rounds of antibiotics. She still has a urinary catheter in place. She has a caregiver that stays with her during the day and her daughter has moved in with her to help care for her. Today they noticed some twitching of her face and maybe some facial droop. Her speech was off but that happens intermittently and is not atypical. They also states that she was not really able to lift or squeeze on that side. She has not had any fevers, no vomiting, she has not had any complaints of chest pain or shortness of breath. She was having constipation but she is now on a normal bowel regimen and stooling regularly. Patient herself is currently denying any symptoms. She is able to tell me her name, she knows she is at the hospital although think she is in [place], she also stated the year was 1946. When family was not present she states that she would like to return home, she does not wish to be hospitalized. Related Data Home Medications Medication Instructions Recorded Confirmed Calcium 500 + D 1 tab PO DAILY 09/08/18 09/08/18 levothyroxine 112 mcg PO DAILY 09/08/18 09/08/18 metoprolol succinate 50 mg PO DAILY 09/08/18 09/08/18 quetiapine 12.5 - 25 mg PO DAILY 09/08/18 09/08/18 rivaroxaban [Xarelto] 15 mg PO DAILY 09/08/18 09/08/18 Allergies Allergy/AdvReac Type Severity Reaction Status Date / Time atenolol [ATENOLOL] AdvReac Intermediate dizzyness Verified 02/15/18 10:29 Review of Systems Review of Systems ROS Unobtainable: Unobtainable due to mental status/LOC and Other (patient does not answer all questions or follow all commands.) [facility] Medical History (Updated 09/08/18 @ 18:06 by Cristiane Elliott DO) Hypertension (Chronic) UTI (urinary tract infection), bacterial (Acute) Atrial fibrillation (Chronic) Hypothyroidism (Chronic) Subarachnoid bleed (Resolved) Subdural hemorrhage (Resolved) Surgical History History of tonsillectomy (Chronic) Previous section (Chronic) Family History Mother No problems noted. Father No problems noted. Brother No problems noted. Brother No problems noted. Social History household members: none Smoking Status: Former smoker alcohol intake: current additional social history: She lives at home with family. Social History household members: none Smoking Status: Former smoker alcohol intake: current additional social history: She lives at home with family. Exam Narrative Exam Narrative: GEN: well nourished, well appearing elderly female, alert and oriented to self patient is incorrect on the year, she know she is at the hospital but thinks she is in [place] which is down in next two [place], patient appears to be in no acute distress. patient does not appear to be in any distress, she does not answer all questions or follow commands but does for some period HEENT: Atraumatic, pupils are equal round reactive to light, extraocular movements are intact, nares are clear, TMs are clear with no fluid, there is no conjunctival pallor. Throat is clear without any exudates, erythema, tonsillar enlargement or uvular deviation, patient will not smile but no obvious facial droop. She will stick her tongue out with no deviation. HEART: Regular rate and rhythm without murmur, clicks, rubs. Pulses are equal in upper and lower extremities LUNGS:Lungs clear to auscultation, no wheezes, rales, crackles, chest moves symmetrically ABD:bowel sounds normal, soft, non-tender, no guarding, rebound, rigidity, no masses noted, no hepatosplenomegaly :No CVA tenderness, patient has urinary catheter in place draining yellow, clear urine. MSCL: Non-tender, no muscle atrophy, normal range of motion of upper extremities. NEURO:CN 2-12 intact, sensation normal Initial Vital Signs Initial Vital Signs: Vital Signs Temperature 97.5 F L 09/08/18 14:53 Pulse Rate 90 09/08/18 14:53 Respiratory Rate 14 09/08/18 14:53 Blood Pressure 107/83 09/08/18 14:53 Pulse Oximetry 96 09/08/18 14:53 Course Orders Ordered: ED Orders 09/08/18 16:04 CT head/brain wo con Stat 09/08/18 16:05 XR chest 1V Stat 09/08/18 16:22 EKG-12 Lead Stat 09/08/18 16:41 Basic Metabolic Panel Stat Complete Blood Count AUTO DIFF Stat Partial Thromboplastin Time Stat Prothrombin Time INR Stat 09/08/18 18:40 Urinalysis and Microscopic Stat Urine Culture Stat Urine Drug Screen, Rapid Stat Vital Signs - 8 hr 09/08/18 14:53 09/08/18 15:30 09/08/18 16:00 Temperature 97.5 F L Pulse Rate 90 87 79 Respiratory Rate 14 16 24 Blood Pressure 107/83 Blood Pressure [Left Arm] 125/68 124/72 Pulse Oximetry 96 97 98 09/08/18 16:30 09/08/18 17:00 09/08/18 17:30 Temperature Pulse Rate 76 99 H 98 H Respiratory Rate 26 H 25 H 23 Blood Pressure Blood Pressure [Left Arm] 141/90 H 135/79 125/78 Pulse Oximetry 98 98 09/08/18 18:00 09/08/18 18:30 Temperature Pulse Rate 98 H 96 H Respiratory Rate 16 21 Blood Pressure Blood Pressure [Left Arm] 121/106 H 126/82 Pulse Oximetry 98 98 MDM - Neuro Symptoms/Deficit Lab Data Attestation: I reviewed the patient's lab results. Result diagrams: 09/08/18 16:41 09/08/18 16:41 Lab Results 09/08/18 09/08/18 09/08/18 Range/Units 16:41 16:41 16:41 WBC 9.9 (4.5-11.0) X10^3/uL RBC 4.02 (4.0-5.2) X10^6/uL Hgb 12.4 (12.0-16.0) g/dL Hct 36.6 (36-46) % MCV 90.8 (80-100) fL MCH 30.7 (26-34) PG MCHC 33.8 (30-36) % RDW 16.4 H (11.6-14.8) % Plt Count 312 (150-400) X10^3/uL Neut % (Auto) 70.1 (50-75) % Lymph % (Auto) 17.8 L (25-40) % Gaines % (Auto) 7.1 (3-14) % Eos % (Auto) 4.4 H (2-4) % Baso % (Auto) 0.6 (0-2) % Neut # (Auto) 6900 (6997-4256) /uL Lymph # (Auto) 1800 (0700-7881) /uL Gaines # (Auto) 700 (0-900) /uL Eos # (Auto) 400 (0-450) /uL Baso # (Auto) 100 (0-100) /uL PT 13.8 H (10.1-12.7) SECONDS INR 1.2 (0.9-1.3) APTT 33 D (26.4-36.2) SECONDS Sodium 135 L (137-145) mmol/L Potassium 4.3 (3.4-5.1) mmol/L Chloride 99 (98-107) mmol/L Carbon Dioxide 27 (22-32) mmol/L BUN 25 H (7-17) mg/dL Creatinine 0.90 (0.52-1.04) mg/dL Estimated GFR > 60.0 (>60) mL/min BUN/Creatinine Ratio 27.8 H (6-22) Glucose 135 H (80-110) mg/dL Calcium 10.1 (8.4-10.2) mg/dL Urine Color Urine Appearance Urine pH (4.5-8.0) Ur Specific [place] (1.000-1.035) Urine Protein (Negative) Urine Glucose (UA) (Negative) g/dL Urine Ketones (NEGATIVE) Urine Occult Blood (Negative) Urine Nitrate (Negative) Urine Bilirubin (NEGATIVE) Urine Urobilinogen (0.2) E.U./dL Ur Leukocyte Esterase (NEGATIVE) Urine RBC (0-5/HPF) Urine WBC (0-5/HPF) Ur Squamous Epith Cells (0-5/HPF) Amorphous Sediment Urine Bacteria (None) Urine Mucus (Negative) Urine Yeast (None) Ur Culture Indicated? 09/08/18 Range/Units 18:40 WBC (4.5-11.0) X10^3/uL RBC (4.0-5.2) X10^6/uL Hgb (12.0-16.0) g/dL Hct (36-46) % MCV (80-100) fL MCH (26-34) PG MCHC (30-36) % RDW (11.6-14.8) % Plt Count (150-400) X10^3/uL Neut % (Auto) (50-75) % Lymph % (Auto) (25-40) % Gaines % (Auto) (3-14) % Eos % (Auto) (2-4) % Baso % (Auto) (0-2) % Neut # (Auto) (1755-0598) /uL Lymph # (Auto) (3829-9522) /uL Gaines # (Auto) (0-900) /uL Eos # (Auto) (0-450) /uL Baso # (Auto) (0-100) /uL PT (10.1-12.7) SECONDS INR (0.9-1.3) APTT (26.4-36.2) SECONDS Sodium (137-145) mmol/L Potassium (3.4-5.1) mmol/L Chloride (98-107) mmol/L Carbon Dioxide (22-32) mmol/L BUN (7-17) mg/dL Creatinine (0.52-1.04) mg/dL Estimated GFR (>60) mL/min BUN/Creatinine Ratio (6-22) Glucose (80-110) mg/dL Calcium (8.4-10.2) mg/dL Urine Color Yellow Urine Appearance Cloudy Urine pH 6.0 (4.5-8.0) Ur Specific [place] 1.020 (1.000-1.035) Urine Protein 1+ H (Negative) Urine Glucose (UA) Negative (Negative) g/dL Urine Ketones Negative (NEGATIVE) Urine Occult Blood 3+ H (Negative) Urine Nitrate Negative (Negative) Urine Bilirubin Negative (NEGATIVE) Urine Urobilinogen 0.2 (0.2) E.U./dL Ur Leukocyte Esterase 3+ H (NEGATIVE) Urine RBC 5-10/hpf H (0-5/HPF) Urine WBC 30-100/hpf H (0-5/HPF) Ur Squamous Epith Cells 0-1 /hpf (0-5/HPF) Amorphous Sediment 1+ Urine Bacteria Few (2-10) H (None) Urine Mucus 1+ H (Negative) Urine Yeast 10-30/hpf H (None) Ur Culture Indicated? Specimen cultured Point of Care Testing Glucose POC 165 Urine Dip Bedside Urine Glucose Negative Bedside Urine Bilirubin + 1 Bedside Urine Ketone - Negative Urine Specific [place] 1.025 Bedside Urine Occult Blood +++ Bedside Urine pH 6.0 Bedside Urine Protein +/- 15 Bedside Urine Urobilinogen - Negative Bedside Urine Nitrite - Negative Bedside Urine Leukocytes +++ [address] scan - head: Radiologist's impression: [place] [address] CT Scan Report Signed Patient: Samira Encinas JMR#: [id number] : [id number]:[id number] Age/Sex: 82 / FDate of Service: 09/08/18 Loc: ED Accession Number: [id number] Procedure: CT head/brain wo con Ordering Provider: Cristiane Elliott D.O. PROCEDURE: CT HEAD/BRAIN WO CON INDICATIONS: twitching, ? facial droop, cva in July. resolved TECHNIQUE: Noncontrast 4.5 mm thick angled axial sections acquired from the foramen magnum to the vertex, with coronal and sagittal reformats. For radiation dose reduction, the following was used: automated exposure control, adjustment of mA and/or kV according to patient size. COMPARISON: [facility], CT, CT HEAD/BRAIN WO CON, 08/21/2018, 19:17. FINDINGS: Image quality: Diagnostic. CSF spaces: Basal cisterns are patent. No extra-axial fluid collections. Ventricles are moderately prominent with corresponding parenchymal volume loss. Brain: No midline shift. No intracranial masses or hemorrhage. Mclaughlin-white matter interface is normal. Large confluent areas of low attenuation are seen within the periventricular and deep white matter of the supratentorial brain, similar to the previous exam. Encephalomalacia of the right cerebellum is more pronounced on the current study, but unchanged in size. Prominent calcifications within the bilateral lentiform nuclei is noted (left greater than right). Skull and face: Calvarium and visualized facial bones are intact, without suspicious lesions. Sinuses: Visualized sinuses and mastoids are clear. IMPRESSION: 1. No acute intracranial hemorrhage. 2. Extensive chronic small vessel ischemic changes and parenchymal volume loss are similar to the prior study. 3. Evolving right cerebellar hemispheric area of ischemia, not significantly changed. Dictated by: Fabian Pierce M.D. on 09/08/2018 at 15:23 Approved by: Fabian Pierce M.D. on 09/08/2018 at 15:25 Chest x-ray: Radiologist's impression: Smaira Encinas 82 F 1935 [place] [address] XRay Report Signed Patient: Samira Encinas JMR#: [id number] : 8Acct:[id number] Age/Sex: 82 / FDate of Service: 09/08/18 Loc: ED Accession Number: [id number] Procedure: XR chest 1V Ordering Provider: Cristiane Elliott D.O. PROCEDURE: XR CHEST 1V INDICATIONS: twitching of face, weakness, ? cva TECHNIQUE: One view of the chest was acquired. COMPARISON: [facility], , XR CHEST 1V, 08/31/2018, 18:41. FINDINGS: Surgical changes and devices: None. Lungs and pleura: Lungs are clear. No pleural effusions or pneumothorax. Mediastinum: Mediastinal contours appear normal. Heart is enlarged. Bones and chest wall: No suspicious bony lesions. Overlying soft tissues appear unremarkable. IMPRESSION: No acute cardiopulmonary disease process. Dictated by: Regina Landa MD, PhD on 09/08/2018 at 16:19 Approved by: Regina Landa MD, PhD on 09/08/2018 at 16:20 ECG Data Attestation: I personally reviewed and interpreted this ECG as follows: Prior ECG tracings: available for review Interpretation: AFib with a ventricular rate of 99 QRS of 122 and QTC of 419. Left bundle branch block, left axis deviation. Patient has prior EKGs available. ST segments appear similar. MDM Narrative Medical decision making narrative: Head CT shows evolving stroke, chest x-ray shows no acute process, lab work shows no acute changes other than slightly elevated BUN. Patient's liver enzymes from 08/31/2018 are elevated. They were not re-evaluated today. Discussed with patient and family the patient does not wish to be in the hospital. They already have hospice come and evaluate her today. We discussed that she could have had a TIA. She does not a clear stroke at this time she is moving her extremities with no obvious facial droop and is able to speak to me all for the most part normally. We also discussed possibly UTI, we have her Flores catheter clamped and awaiting urine she has been making some regularly to check for infection. UA shows leuks, no nitrates, sent for culture. No clear signs of UTI at this time and will await culture results. Family states she is on Clindamycin per prior Urine culture. Discharge Plan Departure Patient Disposition: Home Clinical Impression: Facial twitching, Difficulty with speech Discharge Date/Time: 09/08/18 19:06 Interventions: ED Discharge Assessment Last Done: 09/08/18 19:05 Activity Restrictions/Additional Instructions: Follow up with your physician in the next 2-3 days for recheck. Discuss with your physician/Hospice your plan and goals of care. Call your physician tomorrow. Your urine was sent for urine culture. If positive for infection you should expect a call from us or to be sent to your primary care physician. Continue home medications as prescribed. Return to the emergency department for new or concerning symptoms or other concerning changes. Prescriptions: No Action levothyroxine 112 mcg tablet 112 mcg PO DAILY RF: 0 quetiapine 25 mg tablet 12.5 - 25 mg PO DAILY RF: 0 metoprolol succinate 50 mg tablet extended release 24 hr 50 mg PO DAILY RF: 0 Xarelto 15 mg tablet 15 mg PO DAILY RF: 0 Calcium 500 + D 1 tab PO DAILY RF: 0 Referrals: Argentina Brewer MD [Primary Care Provider] -
--- NOTE | 2018-09-08 16:04 | DI.CT.S_ITS ---
PROCEDURE: CT HEAD/BRAIN WO CON INDICATIONS: twitching, ? facial droop, cva in July. resolved TECHNIQUE: Noncontrast 4.5 mm thick angled axial sections acquired from the foramen magnum to the vertex, with coronal and sagittal reformats. For radiation dose reduction, the following was used: automated exposure control, adjustment of mA and/or kV according to patient size. COMPARISON: [facility], CT, CT HEAD/BRAIN WO CON, 08/21/2018, 19:17. FINDINGS: Image quality: Diagnostic. CSF spaces: Basal cisterns are patent. No extra-axial fluid collections. Ventricles are moderately prominent with corresponding parenchymal volume loss. Brain: No midline shift. No intracranial masses or hemorrhage. Mclaughlin-white matter interface is normal. Large confluent areas of low attenuation are seen within the periventricular and deep white matter of the supratentorial brain, similar to the previous exam. Encephalomalacia of the right cerebellum is more pronounced on the current study, but unchanged in size. Prominent calcifications within the bilateral lentiform nuclei is noted (left greater than right). Skull and face: Calvarium and visualized facial bones are intact, without suspicious lesions. Sinuses: Visualized sinuses and mastoids are clear. IMPRESSION: 1. No acute intracranial hemorrhage. 2. Extensive chronic small vessel ischemic changes and parenchymal volume loss are similar to the prior study. 3. Evolving right cerebellar hemispheric area of ischemia, not significantly changed. Dictated by: Fabian Pierce M.D. on 09/08/2018 at 15:23 Approved by: Fabian Pierce M.D. on 09/08/2018 at 15:25
--- NOTE | 2018-09-08 16:05 | DI.RAD.S_ITS ---
PROCEDURE: XR CHEST 1V INDICATIONS: twitching of face, weakness, ? cva TECHNIQUE: One view of the chest was acquired. COMPARISON: [facility], CR, XR CHEST 1V, 08/31/2018, 18:41. FINDINGS: Surgical changes and devices: None. Lungs and pleura: Lungs are clear. No pleural effusions or pneumothorax. Mediastinum: Mediastinal contours appear normal. Heart is enlarged. Bones and chest wall: No suspicious bony lesions. Overlying soft tissues appear unremarkable. IMPRESSION: No acute cardiopulmonary disease process. Dictated by: Regina Landa MD, PhD on 09/08/2018 at 16:19 Approved by: Regina Landa MD, PhD on 09/08/2018 at 16:20
[2018-09-08 16:44] LABS: Add Manual Diff / Slide Review NO; Basophils Absolute Auto 100 /uL (0-100); Basophils Percent Auto 0.6 % (0-2); Eosinophils Absolute Auto 400 /uL (0-450); Eosinophils Percent Auto 4.4 % (2-4); Hematocrit 36.6 % (36-46); Hemoglobin 12.4 g/dL (12.0-16.0); Lymphocytes Absolute Auto 1800 /uL (1100-4500); Lymphocytes Percent Auto 17.8 % (25-40); Mean Corpuscular HGB Conc 33.8 % (30-36); Mean Corpuscular Hemoglobin 30.7 PG (26-34); Mean Corpuscular Volume 90.8 fL (80-100); Monocytes Absolute Auto 700 /uL (0-900); Monocytes Percent Auto 7.1 % (3-14); Neutrophils Absolute Auto 6900 /uL (1500-7000); Neutrophils Percent Auto 70.1 % (50-75); Platelet Count 312 X10^3/uL (150-400); Red Blood Cell Count 4.02 X10^6/uL (4.0-5.2); Red Cell Distribution Width 16.4 % (11.6-14.8); White Blood Cell Count 9.9 X10^3/uL (4.5-11.0)
--- NOTE | 2018-09-08 16:55 | ED_ITS ---
HPI - Neuro Symptoms/Deficit General Chief Complaint: Neuro Symptoms/Deficit Stated Complaint: TIA Time Seen by Provider: 09/08/18 15:31 Source: patient, family (Daughter, caregiver and neighbor), EMS and old records reviewed Mode of arrival: EMS History of Present Illness HPI Narrative: This is an 82-year-old female comes to the emergency department with concern for TIA or stroke. Patient was at home today, she has had strokes in the past. She has recently returned home with a evaluation today by hospice. Family states that her primary care physician states they think she may have some kind of liver cancer but they are unclear exactly what stage or any other causes. They state was found with lab work. Patient was discharged home after having a stroke in July and being sent to [facility]. She had right-sided facial droop, word salad, and right sided weakness. She has had improvement but continues to have some issues with dementia as well as occasional difficulties with speech. she also developed UTI all there and has been on 2 or 3 rounds of antibiotics. She still has a urinary catheter in place. She has a caregiver that stays with her during the day and her daughter has moved in with her to help care for her. Today they noticed some twitching of her face and maybe some facial droop. Her speech was off but that happens intermittently and is not atypical. They also states that she was not really able to lift or squeeze on that side. She has not had any fevers, no vomiting, she has not had any complaints of chest pain or shortness of breath. She was having constipation but she is now on a normal bowel regimen and stooling regularly. Patient herself is currently denying any symptoms. She is able to tell me her name, she knows she is at the hospital although think she is in [place], she also s tated the year was 1946. When family was not present she states that she would like to return home, she does not wish to be hospitalized. Related Data Home Medications Medication Instructions Recorded Confirmed Calcium 500 + D 1 tab PO DAILY 09/08/18 09/08/18 levothyroxine 112 mcg PO DAILY 09/08/18 09/08/18 metoprolol succinate 50 mg PO DAILY 09/08/18 09/08/18 quetiapine 12.5 - 25 mg PO DAILY 09/08/18 09/08/18 rivaroxaban [Xarelto] 15 mg PO DAILY 09/08/18 09/08/18 Allergies Allergy/AdvReac Type Severity Reaction Status Date / Time atenolol [ATENOLOL] AdvReac Intermediate dizzyness Verified 02/15/18 10:29 Review of Systems Review of Systems ROS Unobtainable: Unobtainable due to mental status/LOC and Other (patient does not answer all questions or follow all commands.) [facility] Medical History (Updated 09/08/18 @ 18:06 by Cristiane Elliott DO) Hypertension (Chronic) UTI (urinary tract infection), bacterial (Acute) Atrial fibrillation (Chronic) Hypothyroidism (Chronic) Subarachnoid bleed (Resolved) Subdural hemorrhage (Resolved) Surgical History History of tonsillectomy (Chronic) Previous section (Chronic) Family History Mother No problems noted. Father No problems noted. Brother No problems noted. Brother No problems noted. Social History household members: none Smoking Status: Former smoker alcohol intake: current additional social history: She lives at home with family. Social History household members: none Smoking Status: Former smoker alcohol intake: current additional social history: She lives at home with family. Exam Narrative Exam Narrative: GEN: well nourished, well appearing elderly female, alert and oriented to self patient is incorrect on the year, she know she is at the hospital but thinks she is in [place] which is down in next two [place]ort[place], patient appears to be in no acute distress. patient does not appear to be in any distress, she does not answer all questions or follow commands but does for some period HEENT: Atraumatic, pupils are equal round reactive to light, extraocular movements are intact, nares are clear, TMs are clear with no fluid, there is no conjunctival pallor. Throat is clear without any exudates, erythema, tonsillar enlargement or uvular deviation, patient will not smile but no obvious facial droop. She will stick her tongue out with no deviation. HEART: Regular rate and rhythm without murmur, clicks, rubs. Pulses are equal in upper and lower extremities LUNGS:Lungs clear to auscultation, no wheezes, rales, crackles, chest moves symmetrically ABD:bowel sounds normal, soft, non-tender, no guarding, rebound, rigidity, no masses noted, no hepatosplenomegaly :No CVA tenderness, patient has urinary catheter in place draining yellow, clear urine. MSCL: Non-tender, no muscle atrophy, normal range of motion of upper extremities. NEURO:CN 2-12 intact, sensation normal Initial Vital Signs Initial Vital Signs: Vital Signs Temperature 97.5 F L 09/08/18 14:53 Pulse Rate 90 09/08/18 14:53 Respiratory Rate 14 09/08/18 14:53 Blood Pressure 107/83 09/08/18 14:53 Pulse Oximetry 96 09/08/18 14:53 Course Orders Ordered: ED Orders 09/08/18 16:04 CT head/brain wo con Stat 09/08/18 16:05 XR chest 1V Stat 09/08/18 16:22 EKG-12 Lead Stat 09/08/18 16:41 Basic Metabolic Panel Stat Complete Blood Count AUTO DIFF Stat Partial Thromboplastin Time Stat Prothrombin Time INR Stat 09/08/18 18:40 Urinalysis and Microscopic Stat Urine Culture Stat Urine Drug Screen, Rapid Stat Vital Signs - 8 hr 09/08/18 14:53 09/08/18 15:30 09/08/18 16:00 Temperature 97.5 F L Pulse Rate 90 87 79 Respiratory Rate 14 16 24 Blood Pressure 107/83 Blood Pressure [Left Arm] 125/68 124/72 Pulse Oximetry 96 97 98 09/08/18 16:30 09/08/18 17:00 09/08/18 17:30 Temperature Pulse Rate 76 99 H 98 H Respiratory Rate 26 H 25 H 23 Blood Pressure Blood Pressure [Left Arm] 141/90 H 135/79 125/78 Pulse Oximetry 98 98 09/08/18 18:00 09/08/18 18:30 Temperature Pulse Rate 98 H 96 H Respiratory Rate 16 21 Blood Pressure Blood Pressure [Left Arm] 121/106 H 126/82 Pulse Oximetry 98 98 MDM - Neuro Symptoms/Deficit Lab Data Attestation: I reviewed the patient's lab results. Result diagrams: 09/08/18 16:41 09/08/18 16:41 Lab Results 09/08/18 09/08/18 09/08/18 Range/Units 16:41 16:41 16:41 WBC 9.9 (4.5-11.0) X10^3/uL RBC 4.02 (4.0-5.2) X10^6/uL Hgb 12.4 (12.0-16.0) g/dL Hct 36.6 (36-46) % MCV 90.8 (80-100) fL MCH 30.7 (26-34) PG MCHC 33.8 (30-36) % RDW 16.4 H (11.6-14.8) % Plt Count 312 (150-400) X10^3/uL Neut % (Auto) 70.1 (50-75) % Lymph % (Auto) 17.8 L (25-40) % [place]iscoe % (Auto) 7.1 (3-14) % Eos % (Auto) 4.4 H (2-4) % Baso % (Auto) 0.6 (0-2) % Neut # (Auto) 6900 (1394-1682) /uL Lymph # (Auto) 1800 (2439-9061) /uL Briscoe # (Auto) 700 (0-900) /uL Eos # (Auto) 400 (0-450) /uL Baso # (Auto) 100 (0-100) /uL PT 13.8 H (10.1-12.7) SECONDS INR 1.2 (0.9-1.3) APTT 33 D (26.4-36.2) SECONDS Sodium 135 L (137-145) mmol/L Potassium 4.3 (3.4-5.1) mmol/L Chloride 99 (98-107) mmol/L Carbon Dioxide 27 (22-32) mmol/L BUN 25 H (7-17) mg/dL Creatinine 0.90 (0.52-1.04) mg/dL Estimated GFR > 60.0 (>60) mL/min BUN/Creatinine Ratio 27.8 H (6-22) Glucose 135 H (80-110) mg/dL Calcium 10.1 (8.4-10.2) mg/dL Urine Color Urine Appearance Urine pH (4.5-8.0) Ur Specific Cocoa (1.000-1.035) Urine Protein (Negative) Urine Glucose (UA) (Negative) g/dL Urine Ketones (NEGATIVE) Urine Occult Blood (Negative) Urine Nitrate (Negative) Urine Bilirubin (NEGATIVE) Urine Urobilinogen (0.2) E.U./dL Ur Leukocyte Esterase (NEGATIVE) Urine RBC (0-5/HPF) Urine WBC (0-5/HPF) Ur Squamous Epith Cells (0-5/HPF) Amorphous Sediment Urine Bacteria (None) Urine Mucus (Negative) Urine Yeast (None) Ur Culture Indicated? 09/08/18 Range/Units 18:40 WBC (4.5-11.0) X10^3/uL RBC (4.0-5.2) X10^6/uL Hgb (12.0-16.0) g/dL Hct (36-46) % MCV (80-100) fL MCH (26-34) PG MCHC (30-36) % RDW (11.6-14.8) % Plt Count (150-400) X10^3/uL Neut % (Auto) (50-75) % Lymph % (Auto) (25-40) % Briscoe % (Auto) (3-14) % Eos % (Auto) (2-4) % Baso % (Auto) (0-2) % Neut # (Auto) (7122-7622) /uL Lymph # (Auto) (8878-4304) /uL Briscoe # (Auto) (0-900) /uL Eos # (Auto) (0-450) /uL Baso # (Auto) (0-100) /uL PT (10.1-12.7) SECONDS INR (0.9-1.3) APTT (26.4-36.2) SECONDS Sodium (137-145) mmol/L Potassium (3.4-5.1) mmol/L Chloride (98-107) mmol/L Carbon Dioxide (22-32) mmol/L BUN (7-17) mg/dL Creatinine (0.52-1.04) mg/dL Estimated GFR (>60) mL/min BUN/Creatinine Ratio (6-22) Glucose (80-110) mg/dL Calcium (8.4-10.2) mg/dL Urine Color Yellow Urine Appearance Cloudy Urine pH 6.0 (4.5-8.0) Ur Specific Cocoa 1.020 (1.000-1.035) Urine Protein 1+ H (Negative) Urine Glucose (UA) Negative (Negative) g/dL Urine Ketones Negative (NEGATIVE) Urine Occult Blood 3+ H (Negative) Urine Nitrate Negative (Negative) Urine Bilirubin Negative (NEGATIVE) Urine Urobilinogen 0.2 (0.2) E.U./dL Ur Leukocyte Esterase 3+ H (NEGATIVE) Urine RBC 5-10/hpf H (0-5/HPF) Urine WBC 30-100/hpf H (0-5/HPF) Ur Squamous Epith Cells 0-1 /hpf (0-5/HPF) Amorphous Sediment 1+ Urine Bacteria Few (2-10) H (None) Urine Mucus 1+ H (Negative) Urine Yeast 10-30/hpf H (None) Ur Culture Indicated? Specimen cultured Point of Care Testing Glucose POC 165 Urine Dip Bedside Urine Glucose Negative Bedside Urine Bilirubin + 1 Bedside Urine Ketone - Negative Urine Specific Cocoa 1.025 Bedside Urine Occult Blood +++ Bedside Urine pH 6.0 Bedside Urine Protein +/- 15 Bedside Urine Urobilinogen - Negative Bedside Urine Nitrite - Negative Bedside Urine Leukocytes +++ [address] scan - head: Radiologist's impression: [place] [address] CT Scan Report Signed Patient: Samira Encinas JMR#: [id number] : 8Acct:[id number] Age/Sex: 82 / FDate of Service: 09/08/18 Loc: ED Accession Number: [id number] Procedure: CT head/brain wo con Ordering Provider: Crisitane Elliott D.O. PROCEDURE: CT HEAD/BRAIN WO CON INDICATIONS: twitching, ? facial droop, cva in July. resolved TECHNIQUE: Noncontrast 4.5 mm thick angled axial sections acquired from the foramen magnum to the vertex, with coronal and sagittal reformats. For radiation dose reduction, the following was used: automated exposure control, adjustment of mA and/or kV according to patient size. COMPARISON: [facility], CT, CT HEAD/BRAIN WO CON, 08/21/2018, 19:17. FINDINGS: Image quality: Diagnostic. CSF spaces: Basal cisterns are patent. No extra-axial fluid collections. Ventricles are moderately prominent with corresponding parenchymal volume loss. Brain: No midline shift. No intracranial masses or hemorrhage. Mclaguhlin-white matter interface is normal. Large confluent areas of low attenuation are seen within the periventricular and deep white matter of the supratentorial brain, similar to the previous exam. Encephalomalacia of the right cerebellum is more pronounced on the current study, but unchanged in size. Prominent calcifications within the bilateral lentiform nuclei is noted (left greater than right). Skull and face: Calvarium and visualized facial bones are intact, without suspicious lesions. Sinuses: Visualized sinuses and mastoids are clear. IMPRESSION: 1. No acute intracranial hemorrhage. 2. Extensive chronic small vessel ischemic changes and parenchymal volume loss are similar to the prior study. 3. Evolving right cerebellar hemispheric area of ischemia, not significantly changed. Dictated by: Fabian Pierce M.D. on 09/08/2018 at 15:23 Approved by: Fabian Pierce M.D. on 09/08/2018 at 15:25 Chest x-ray: Radiologist's impression: Samira Encinas 82 F 1935 [place] [address] XRay Report Signed Patient: Samira Encinas JMR#: [id number] : [id number]:[id number] Age/Sex: 82 / FDate of Service: 09/08/18 Loc: ED Accession Number: [id number] Procedure: XR chest 1V Ordering Provider: Cristiane Elliott D.O. PROCEDURE: XR CHEST 1V INDICATIONS: twitching of face, weakness, ? cva TECHNIQUE: One view of the chest was acquired. COMPARISON: [facility], , XR CHEST 1V, 08/31/2018, 18:41. FINDINGS: Surgical changes and devices: None. Lungs and pleura: Lungs are clear. No pleural effusions or pneumothorax. Mediastinum: Mediastinal contours appear normal. Heart is enlarged. Bones and chest wall: No suspicious bony lesions. Overlying soft tissues appear unremarkable. IMPRESSION: No acute cardiopulmonary disease process. Dictated by: Regina Landa MD, PhD on 09/08/2018 at 16:19 Approved by: Regina Landa MD, PhD on 09/08/2018 at 16:20 ECG Data Attestation: I personally reviewed and interpreted this ECG as follows: Prior ECG tracings: available for review Interpretation: AFib with a ventricular rate of 99 QRS of 122 and QTC of 419. Left bundle branch block, left axis deviation. Patient has prior EKGs a vailable. ST segments appear similar. MDM Narrative Medical decision making narrative: Head CT shows evolving stroke, chest x-ray shows no acute process, lab work shows no acute changes other than slightly elevated BUN. Patient's liver enzymes from 08/31/2018 are elevated. They were not re-evaluated today. Discussed with patient and family the patient does not wish to be in the hospital. They already have hospice come and evaluate her today. We discussed that she could have had a TIA. She does not a clear stroke at this time she is moving her extremities with no obvious facial droop and is able to speak to me all for the most part normally. We also discussed possibly UTI, we have her Flores catheter clamped and awaiting urine she has been making some regularly to check for infection. UA shows leuks, no nitrates, sent for culture. No clear signs of UTI at this time and will await culture results. Family states she is on Clindamycin per prior Urine culture. Discharge Plan Departure Patient Disposition: Home Clinical Impression: Facial twitching, Difficulty with speech Discharge Date/Time: 09/08/18 19:06 Interventions: ED Discharge Assessment Last Done: 09/08/18 19:05 Activity Restrictions/Additional Instructions: Follow up with your physician in the next 2-3 days for recheck. Discuss with your physician/Hospice your plan and goals of care. Call your physician tomorrow. Your urine was sent for urine culture. If positive for infection you should expect a call from us or to be sent to your primary care physician. Continue home medications as prescribed. Return to the emergency department for new or concerning symptoms or other concerning changes. Prescriptions: No Action levothyroxine 112 mcg tablet 112 mcg PO DAILY RF: 0 quetiapine 25 mg tablet 12.5 - 25 mg PO DAILY RF: 0 metoprolol succinate 50 mg tablet extended release 24 hr 50 mg PO DAILY RF: 0 Xarelto 15 mg tablet 15 mg PO DAILY RF: 0 Calcium 500 + D 1 tab PO DAILY RF: 0 Referrals: Argentina Brewer MD [Primary Care Provider] -
[2018-09-08 16:58] LABS: INR 1.2 (0.9-1.3); Prothrombin Time 13.8 SECONDS (10.1-12.7)
[2018-09-08 17:01] LABS: PTT Partial Thromboplastin Tim 33 SECONDS (26.4-36.2)
[2018-09-08 17:31] LABS: BUN Creatinine Ratio 27.8 (6-22); Blood Urea Nitrogen 25 mg/dL (7-17); Calcium 10.1 mg/dL (8.4-10.2); Carbon Dioxide 27 mmol/L (22-32); Chloride 99 mmol/L (98-107); Estimated Glomerular Filt Rate > 60.0 mL/min (>60); Glucose 135 mg/dL (80-110); HEMOLYSIS < 15 (0-50); Potassium 4.3 mmol/L (3.4-5.1); Sodium 135 mmol/L (137-145)
[2018-09-08 18:52] LABS: Appearance Urine UA CLOUDY; Bilirubin Urine UA NEGATIVE (NEGATIVE); Color Urine UA YELLOW; Glucose Urine UA NEGATIVE (Negative); Ketones Urine UA NEGATIVE (NEGATIVE); Leukocyte Esterase Urine UA 3+ (NEGATIVE); Nitrite Urine UA NEGATIVE (Negative); Occult Blood Urine UA 3+ (Negative); Protein Urine UA 1+ (Negative); Urobilinogen Urine UA 0.2 E.U./dL (0.2)
[2018-09-08 19:04] LABS: RBC Urine 5-10/HPF (0-5/HPF)
[2018-09-08 19:05] LABS: Amorphous Sediment Urine 1+; Bacteria Urine Few (2-10); Culture Indicated Urine Specimen Cultured; Mucus Urine 1+ (Negative); Squamous Epithelial Cell Urine 0-1 /HPF (0-5/HPF); WBC Urine 30-100/HPF (0-5/HPF)
[2018-09-08 19:10] LABS: Urine Amphetamines Negative (Negative); Urine Barbiturates Negative (Negative); Urine Benzodiazepines Negative (Negative); Urine Cocaine Negative (Negative); Urine MDMA Negative (Negative); Urine Methadone Negative (Negative); Urine Methamphetamines Negative (Negative); Urine Morphine/Opi cutoff 2000 Negative (Negative); Urine Oxycodone Negative (Negative); Urine Phencyclidine Negative (Negative); Urine Tetrahydrocannabinol Negative (Negative); Urine Tricyclic Antidepressant Negative (Negative)
== END 2018-09-08 19:06 | disposition home or self-care (01) ==
PROVIDERS: Emergency Provider Emergency Medicine; Family Provider Internal Medicine; PCP Internal Medicine
DX: G51.4 Facial myokymia (principal); R47.9 Unspecified speech disturbances; R53.1 Weakness; R41.0 Disorientation, unspecified
CPT/HCPCS: 70450; 71045; 80048; 80305; 81001; 81003; 82962; 85025; 85610; 85730; 87077; 87086; 93005; 93010; 99283; 99285; 99291